=== PATIENT | female | born 1945 | race Two or more races ===

== ENCOUNTER → 2024-09-27 | Outpatient (CLI) | payer MEDICAID ==
[~2024-09-27] MED LIST: ALBUTEROL SULF 2.5 MG/0.5ML(0.5%) NEB SOLN ONE
== END | disposition home or self-care (01) ==
LOC: RT 08:46
PROVIDERS: ATTEND Internal Medicine Pulmonary Disease
DX: J84.9 Interstitial pulmonary disease, unspecified (principal); R06.00 Dyspnea, unspecified; Z79.899 Other long term (current) drug therapy
CPT/HCPCS: 94060; 94618; 94727; 94729

== ENCOUNTER → 2024-11-28 | Outpatient (CLI) | payer MEDICAID | END | disposition home or self-care (01) | LOC: Rad HDHVI 09:06 | PROVIDERS: ATTEND Internal Medicine Cardiovascular Disease | DX: I50.23 Acute on chronic systolic (congestive) heart failure (principal); I51.7 Cardiomegaly | CPT/HCPCS: 93306 ==

== ENCOUNTER → 2024-11-30 | Outpatient (CLI) | payer MEDICAID | END | disposition home or self-care (01) | LOC: Rad HDHVI 09:10 | PROVIDERS: ATTEND Internal Medicine Cardiovascular Disease | DX: I10 Essential (primary) hypertension (principal) | CPT/HCPCS: 93880 ==

== ENCOUNTER → 2025-01-26 | Outpatient (CLI) | payer MEDICAID ==
[2025-01-26 11:53] LABS: Basophils # (auto) 0 10 ^3/uL (0-0.2); Hemoglobin 13.1 g/dL (12.2-16.2); Lymphocytes # (auto) 1.2 10 ^3/uL (0.4-5.4); Monocytes # (auto) 0.3 10 ^3/uL (0-1.3); Neutrophils # (auto) 1.8 10 ^3/uL (1.6-8.6); Platelet Count (auto) 74 10^3/uL (140-450)
[2025-01-26 11:54] LABS: Eosinophils # (auto) 0.2 10 ^3/uL (0-0.8); Eosinophils % (auto) 4.6 % (0.0-7.0); Hematocrit 37.7 % (36.0-46.0); Lymphocytes % (auto) 33.8 % (10.0-50.0); Mean Corpuscular Hemoglobin 35.9 pg (28.0-32.0); Mean Corpuscular Hgb Conc. 34.7 g/dL (32.0-36.0); Mean Corpuscular Volume 103.4 fL (80.0-100.0); Monocytes % (auto) 8.9 % (0.0-12.0); Neutrophils % (auto) 51.7 % (37.0-80.0); Nucleated Red Blood Cells % 0.2 %; Red Blood Cells 3.65 10^6/uL (4.0-5.20); White Blood Cell 3.4 10^3/uL (4.4-10.8)
[2025-01-26 12:01] LABS: INR 1.16 (0.9-1.15); Partial Thromboplastin Time 34.5 SEC (24.5-34.5); Prothrombin Time 12.1 sec (9.3-11.8)
[2025-01-26 12:11] LABS: Alanine Aminotransferase 33 U/L (7-40); Albumin 3.4 g/dL (3.2-4.8); Anion Gap 6 (5-15); BUN/Creatinine Ratio 27.6 (10.0-20.0); Blood Urea Nitrogen 16 mg/dL (9-23); Calcium 9.4 mg/dL (8.7-10.4); Carbon Dioxide 28 mmol/L (20-31); Potassium 3.8 mmol/L (3.5-5.1); Sodium 141 mmol/L (136-145); Total Protein 6.5 g/dL (5.7-8.2)
[2025-01-26 12:12] LABS: Alkaline Phosphatase 208 U/L (46-116); Aspartate Aminotransferase 49 U/L (13-40); Bilirubin, Total 2.5 mg/dL (0.2-1.0); Chloride 107 mmol/L (98-107); Glucose 146 mg/dL (74-106)
[2025-01-26 12:33] LABS: Hepatitis B Surface Antigen Negative (Negative)
[2025-01-26 12:50] LABS: Hepatitis A Ab IgM Negative; Hepatitis B Core IgM Negative (Negative); Hepatitis C Antibody Negative (Negative)
[2025-01-27 08:07] LABS: AFP Serum Tumor Marker 4.5 ng/mL (0.0-9.2)
[2025-01-27 13:07] LABS: Anti-Nuclear Antibody Direct Negative (Negative)
== END | disposition home or self-care (01) ==
LOC: LAB 11:07
PROVIDERS: ATTEND Specialist
DX: K74.60 Unspecified cirrhosis of liver (principal); D69.9 Hemorrhagic condition, unspecified
CPT/HCPCS: 36415; 80053; 80074; 82105; 82728; 85025; 85610; 85730; 86038

== ENCOUNTER → 2025-04-05 | Outpatient (CLI) | payer MEDICAID ==
[~2025-04-05] MED LIST changes: +ALBUAER3 IN; -ALBUTEROL SULF 2.5 MG/0.5ML(0.5%) NEB SOLN ONE; +CLON0.1D13 TD; +FOLI-119 PO; +FURO1TAB31 PO; +LEVO100T8 PO; +LEVO750T40 PO; +LINA5TAB PO; +METH2.5T PO; +SUCR1TAB31 PO; +TIMO0.5S28 EACHEYE
--- NOTE | 2025-04-05 14:02 | DVHSR ---
APPROVED REPORT EXAM: Two-dimensional and M-mode echocardiogram with Doppler and color Doppler. DIMENSIONS LVDd4.0 (3.8-5.7cm)LA (2D)3.9 (1.9-4.0cm)Aortic Root3.2 (2.0-3.7cm) LVDs2.7 (2.5-4.0cm)LA (MM) (1.9-4.0cm)Aortic Cusp Exc1.4 (1.5-2.0cm) EF (%) 60.0 (55-70%)Rt. Atrium3.8 (1.9-4.0cm)Asc. Aorta cm IVSd1.2 (0.7-1.1cm)RV (D)3.3 (1.8-2.4cm) PWd1.2 (0.7-1.1cm) Mitral Valve MitralMitral Stenosis E wave0.98m/sMV Mean GR.mmHg A wave1.22m/sMV Peak GR.mmHg E/A ratio0.82D MVAcm2 DECEL [id number] 1/2 Timems Aortic Valve Aortic ValveAortic Stenosis V10.95m/Rikki Mean GR.5mmHg V21.48m/Rikki Peak GR.9mmHg LVOT Diameter1.9 (1.8-2.4cm)Doppler AVA1.82cm2 Pulmonic Valve V21.10m/s Tricuspid Valve TR Velocity3.19m/s [id number] LEFT VENTRICLE The left ventricle is normal size. There is mild concentric left ventricular hypertrophy. The left ventricle is normal in structure and function. The Ejection Fraction is within normal limits. RIGHT VENTRICLE The right ventricle is normal size. ATRIA The left atrial size is normal. The right atrium size is normal. The interatrial septum is intact with no evidence for an atrial septal defect. MITRAL VALVE The mitral valve is normal in structure. Mitral annular calcification is mild to moderate. Mitral regurgitation is mild to moderate. PULMONIC VALVE The pulmonic valve is not well visualized. There is trace pulmonic valvular regurgitation. TRICUSPID VALVE The tricuspid valve is grossly normal. There is moderate tricuspid regurgitation. Right ventricular systolic pressure is 40-50 mmHg. AORTIC VALVE The aortic valve opens well. The aortic valve is mildly sclerotic. No aortic regurgitation is present. GREAT VESSELS The aortic root is normal size. PERICARDIAL EFFUSION There is no pericardial effusion. Other Information Technically limited study due to body habitus. Conclusion MILD AV SCLEROSIS MOD TR MILD MR MILD MAC CONC LVH DIASTOLIC DYSFUNCTION MILD PAH EF >55%
== END | disposition home or self-care (01) ==
LOC: Rad HDHVI 10:05
PROVIDERS: ATTEND Internal Medicine Cardiovascular Disease
DX: I08.3 Combined rheumatic disorders of mitral, aortic and tricuspid valves (principal); I11.9 Hypertensive heart disease without heart failure
CPT/HCPCS: 93306

== ENCOUNTER 2025-04-08 07:53 | Day surgery (SDC) | payer MEDICAID ==
[2025-04-07 09:45] LABS: Basophils # (auto) 0 10 ^3/uL (0-0.2); Eosinophils # (auto) 0.1 10 ^3/uL (0-0.8); Eosinophils % (auto) 3.2 % (0.0-7.0); Hematocrit 34.1 % (36.0-46.0); Monocytes # (auto) 0.3 10 ^3/uL (0-1.3); Monocytes % (auto) 8.9 % (0.0-12.0); Neutrophils # (auto) 1.6 10 ^3/uL (1.6-8.6); Platelet Count (auto) 58 10^3/uL (140-450)
[2025-04-07 09:50] LABS: Basophils % (auto) 0.9 % (0.0-2.0); Lymphocytes % (auto) 33.1 % (10.0-50.0); Mean Corpuscular Hemoglobin 35.7 pg (28.0-32.0); Mean Corpuscular Hgb Conc. 35.2 g/dL (32.0-36.0); Mean Corpuscular Volume 101.5 fL (80.0-100.0); Neutrophils % (auto) 53.9 % (37.0-80.0); Nucleated Red Blood Cells % 0.2 %; Red Blood Cells 3.36 10^6/uL (4.0-5.20); Red Cell Distribution Width 14.3 % (11.8-14.3)
[2025-04-07 09:54] LABS: Alanine Aminotransferase 28 U/L (7-40); Anion Gap 3 (5-15); BUN/Creatinine Ratio 29.5 (10.0-20.0); Blood Urea Nitrogen 18 mg/dL (9-23); Calcium 9.7 mg/dL (8.7-10.4); Carbon Dioxide 29 mmol/L (20-31); Sodium 143 mmol/L (136-145); Total Protein 6.2 g/dL (5.7-8.2)
[2025-04-07 09:55] LABS: Albumin 3.1 g/dL (3.2-4.8); Alkaline Phosphatase 225 U/L (46-116); Aspartate Aminotransferase 44 U/L (13-40); Bilirubin, Total 1.9 mg/dL (0.2-1.0); Chloride 111 mmol/L (98-107); Glucose 152 mg/dL (74-106)
[2025-04-07 10:00] LABS: INR 1.16 (0.9-1.15); Partial Thromboplastin Time 33.7 SEC (24.5-34.5); Prothrombin Time 12.1 sec (9.3-11.8)
[~2025-04-08] VITALS: Ht 139.7 cm; Wt 60.8 kg
[~2025-04-08 07:53] MED LIST changes: -ALBUAER3 IN; +B-COCAP34 OR; -FURO1TAB31 PO; -LEVO750T40 PO
[2025-04-08] MEDS: fentaNYL CITRATE 100 MCG/2 ML VL ONE (09:26)
[2025-04-08] MEDS: MIDAZOLAM HCL 2MG/2ML 2ml VIAL (1mg/ml) ONE (09:26)
[2025-04-08 09:37] VITALS: PULSE 63; RESP 14; TEMP 98.1; O2SAT 100
--- NOTE | 2025-04-08 09:38 | DVHNC2 ---
Procedure - PROCEDURE DATE: 04/08/2025 PROCEDURE PERFORMED BY: CHRISTINA REBOLLEDO MD REFERRING PROVIDER: LEE SALOMON MD PROCEDURE PERFORMED: 1. ESOPHAGOGASTRODUODENOSCOPY WITH MODERATE SEDATION 2. ESOPHAGOGASTRODUODENOSCOPY WITH BIOPSY PRE-PROCEDURE DIAGNOSIS: 1. CIRRHOSIS POSTPROCEDURE DIAGNOSIS: 1. MILD EROSIVE ESOPHAGITIS AND TRACE ESOPHAGEAL VARICES 2. MILD EROSIVE GASTRITIS AND MODERATE PORTAL HYPERTENSIVE GASTROPATHY 3. SMALL HIATAL HERNIA INDICATION FOR PROCEDURE: THE PATIENT IS AN 79-YEAR-OLD FEMALE WITH A HISTORY OF NONALCOHOLIC CIRRHOSIS WHO PRESENTS FOR OUTPATIENT ENDOSCOPY FOR ESOPHAGEAL VARICES SCREENING MEDICATIONS USED: 2MG OF VERSED AND 25 MCG OF FENTANYL IV WAS GIVEN IN INC REMENTAL DOSES DETAILS OF THE PROCEDURE: INFORMED CONSENT WAS OBTAINED AFTER RISKS BENEFITS AND ALTERNATIVES WERE DISCUSSED AT LENGTH WITH THE PATIENT. THE PATIENT GAVE CONSENT TO THE PROCEDURE WELL THE MEDICATION USED FOR SEDATION. THE PATIENT WAS PLACED IN THE LEFT LATERAL DECUBITUS POSITION. AN OLYMPUS ENDOSCOPE WAS INSERTED INTO THE OROPHARYNX AND ADVANCED INTO THE ESOPHAGUS THEN INTO THE STOMACH THEN INTO THE DUODENAL BULB AND DUODENUM. THE DUODENAL BULB AND DUODENUM WERE NORMAL. THE SCOPE WAS THEN WITHDRAWN. THE STOMACH SHOWED MILD EROSIVE GASTRITIS IN THE BODY AND ANTRUM AND MODERATE PORTAL HYPERTENSIVE GASTROPATHY. BIOPSIES WERE TAKEN FOR H PYLORI AND PATHOLOGY. RETROFLEXION SHOWED A SMALL HIATAL HERNIA BUT NO GASTRIC VARICES. RETAINED SECRETIONS WERE WASHED AND SUCTIONED OFF. THE SCOPE WAS THEN WITHDRAWN. THE Z-LINE WAS AT 36 CM. THE PATIENT HAD MILD EROSIVE ESOPHAGITIS AND TRACE ESOPHAGEAL VARICES. THE PATIENT TOLERATED THE PROCEDURE WELL. IMPRESSION: 1. NONALCOHOLIC CIRRHOSIS 2. ENDOSCOPY SHOWING TRACE ESOPHAGEAL VARICES AND MODERATE PORTAL HYPERTENSIVE GASTROPATHY, NO GASTRIC VARICES 3. MILD EROSIVE GASTRITIS IN THE BODY AND ANTRUM AND MILD EROSIVE ESOPHAGITIS 4. SMALL HIATAL HERNIA RECOMMENDATIONS: 1. ANTI-REFLUX PRECAUTIONS, AVOID SPICY FOOD, CAFFEINE, CHOCOLATE, TOMATOES, CITRUS, AND ALCOHOL 2. FOLLOW UP IN GI CLINIC 3. LOW-SALT DIET, MINIMIZE FLUID INTAKE TO LESS THAN 2 L, HIGH-PROTEIN DIET 4. AVOID FRIED SEAFOOD 5. CONTINUE WITH CURRENT MEDICATIONS, AVOID HEPATOTOXIC MEDICATIONS 6. I DO NOT SEE THAT THE PATIENT IS ON A PROTON PUMP INHIBITOR I WILL START PANTOPRAZOLE 40 MG DAILY 7. CONSIDER STARTING INDERAL LOW-DOSE WHEN SHE FOLLOWS UP IN THE CLINIC. I WOULD LIKE TO THANK DR. SALOMON FOR THIS REFERRAL CHRISTINA REBOLLEDO MD April 08, 2025 09:37
[2025-04-08 10:15] VITALS: BP 123/54; PULSE 66; RESP 18; O2SAT 96
== END 2025-04-08 10:30 | disposition home or self-care (01) ==
LOC: GI 07:53
PROVIDERS: ATTEND Specialist
DX: K74.69 Other cirrhosis of liver (principal); K29.50 Unspecified chronic gastritis without bleeding; K22.10 Ulcer of esophagus without bleeding; K76.6 Portal hypertension; K21.00 Gastro-esophageal reflux disease with esophagitis, without bleeding; K44.9 Diaphragmatic hernia without obstruction or gangrene; K31.89 Other diseases of stomach and duodenum; I10 Essential (primary) hypertension; E11.9 Type 2 diabetes mellitus without complications; E03.9 Hypothyroidism, unspecified; Z90.710 Acquired absence of both cervix and uterus; Z90.49 Acquired absence of other specified parts of digestive tract; Z98.890 Other specified postprocedural states
CPT/HCPCS: 36415; 43239; 80053; 82962; 85025; 85610; 85730; 88305; 88312; 88342; J2250; J3010

== ENCOUNTER 2025-07-07 13:08 | Inpatient (IN) | payer MEDICAID ==
[~2025-07-07] VITALS: Ht 152.4 cm; Wt 60.7 kg
[~2025-07-07 13:08] MED LIST changes: +FURO40TA4 PO; +LACT10PA2 PO; +NAPR-957 PO; +PANT1INJ3 IV; +POTA-215 PO; +PREG150C PO; +SPIR50TA5 PO; +VERI2.5T PO
--- NOTE | 2025-07-07 13:34 | ED.PDOC ---
Altered Mental Status HPI Comments HPI: 79F who is tanzanian speaking presents to the ER in a wheelchair and w/ a family member who is translating and the c/c of ALOC. Family member reports that the pt has been altered for the past 2 days w/ being slow to answer, and would often be confused during a conversation. The pt was originally taken to [facility] earlier today and was sent to the ER for further workup Past Medical history: DM, HTN, CHF, Cirrhosis, hepatorenal symptom Past Surgical history: Denies any Medications: Social History: Denies smoking, ETOH, and drug use. Allergies: MADSEN: HPI: Poor Historian. Onset of symptoms two days ago. REVIEW OF SYSTEMS: CONSTITUTIONAL: Denies acute: fever, diaphoresis, chills, HEAD: Denies acute: headache, photophobia Eyes: Denies acute: Double vision, vision loss, eye pain, eye discharge. EARS: Denies acute: tinnitus, hearing loss, ear discharge, ear pain, THROAT: Denies acute: sore throat, swelling, difficulty swallowing , pain with swallowing, change in voice. NECK: Denies acute: neck pain, neck swelling, stiff neck. HEART: Denies acute : chest pain, palpitations, LUNGS: Denies acute: SOB, wheezing, cough, hemoptysis ABDOMEN: Denies acute: abdominal pain, Nausea, Vomiting, diarrhea, melena , hematemesis, hematochezia SKIN: Denies acute: rash, redness, lesions, itchiness. EXTREMITIES: Denies acute: calf pain, numbness, tingling, weakness, denies pain in extremity. Denies acute: Low back pain. Neuro: Denies acute: focal neurological deficit, motor or sensory focal neurological deficit, tremors, seizure like activity, , dizziness, loss of bowel or bladder function, cauda equina like symptoms. : Denies acute: dysuria, hematuria, flank pain, increase in urinary frequency. PSYCH: Denies acute: hallucination, suicidal ideation, homicidal ideation. FEMALE: Denies acute: abnormal vaginal bleeding, foul odor, unusual discharge. PHYSICAL EXAM: General: ------no--acute distress, awake and alert. Head: normocephalic, atraumatic. Neck: supple, trachea is midline, no swelling. Throat: Normal phonation. Eyes:, no erythema, no purulent discharge, no proptosis, no icterus. Heart: regular rate, regular rhythm, no significant murmur appreciated. Lungs: no apparent respiratory distress, Able to speak in full sentences. No wheezing, no rhonchi, no crackles. No stridors Clear to auscultation bilaterally. Abdomen: non tender to palpation, non distended, soft, no guarding, no rebound, + bowel sounds. Neuro: Awake, Alert, oriented to name, self, situation, follows commands GCS=15. Speech is normal. Skin: no petechia, no purpura, no cyanosis, non-pale, not jaundice. Lower extremities: --trace bilateral- Pitting edema no deformity, no focal swelling, no calf TTP. Makes eye contact. moves all four extremities. Face: no apparent facial droop. No nystagmus. No nuchal rigidity, Kernig's sign, Brudzinski's sign, no meningeal signs. ED COURSE: DISCLAIMER: This medical document was created using an electronic medical record system with voice recognition software and computerized dictation system. Although this document has been carefully reviewed, there might still be some phonetic and typographical errors. Occasional wrong-word or "sound-alike" substitutions may have occurred due to the inherent limitations of voice recognition software. These areas are purely typographical due to imperfections of the software pro grams and do not reflect any compromise in the patient's medical care. Please read the chart carefully and recognize, using context, where these substitutions have occurred. Chief Complaint: ALOC Time Seen by MD: 13:30 Primary Care Provider: RUBINA Reviewed Notes: Nurses Notes, Medications, Allergies Allergies: Coded Allergies: Penicillins (Verified Allergy, Unknown, 12/14/24) Home Meds Active Scripts Lactulose (Lactulose) 10 Gm Brian, 10 GM PO TID for 90 Days, #90 PACK Prov:ANSON CHENG MD 05/24/25 Reported Medications Potassium Chloride (Klor-Con M10) 10 Meq Tab, 1 TAB PO DAILY, #30 TAB 5 Refills 05/23/25 Linagliptin Base (TRADJENTA) 5 Mg Tab, 5 MG PO DAILY, TAB 05/23/25 Vericiguat (Verquvo) 2.5 Mg Tab, 2.5 MG PO DAILY, TAB 05/23/25 Furosemide (Furosemide) 40 Mg Tab, 40 MG PO DAILY for 30 Days 05/23/25 Pregabalin (Lyrica) 150 Mg Cap, 150 MG PO HS, CAP 05/23/25 Naproxen (Naproxen) 375 Mg Tab, 375 MG PO DAILYPRN, TAB 05/23/25 Spironolactone (Spironolactone) 50 Mg Tab, 50 MG PO DAILY, TAB 05/23/25 Pantoprazole Sodium (PANTOPRAZOLE SODIUM) 40 Mg Inj, 40 MG IV DAILY, INJ 05/23/25 B-Complex Vitamins (B Complex) Cap, 1 OR DAILY, CAP 04/07/25 Timolol Maleate (Timolol Maleate Ophthalmi) 0.5 % Sandra, 1 DROP EACHEYE BID, #5 ML 5 Refills 02/05/25 Folic Acid (Folic Acid) 1 Mg Tab, 1 MG PO DAILY, TAB 02/05/25 Methotrexate (Methotrexate) 2.5 Mg Tab, 6 TAB PO QWEEKLY, #24 TAB 1 Refill 02/05/25 Sucralfate (CARAFATE) 1 Gm Tab, 1 GM PO BID, TAB 02/05/25 Clonidine Hcl (POOSDNIW-HQM-9 PATCH) 0.1 Mg/24 Hr Ph, 0.1 MG TD QWEEKLY, PATCH 02/05/25 Levothyroxine Sodium (Levothyroxine Sodium) 100 Mcg Tab, 100 MCG PO QAM for 30 Days, MCG 02/03/25 Linagliptin Base (TRADJENTA) 5 Mg Tab, 5 MG PO DAILY@BREAKFAST, TAB 02/03/25 Information Source: Patient Mode of Arrival: Wheelchair Severity: Moderate Past Medical History PAST MEDICAL HISTORY: CHF, DM, HTN Past Medical History (Other): Cirrhosis Surgical History: Denies all surgeries 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 Was a procedure done?: No Differential Diagnosis (ALOC) Differential Diagnosis: Other (DDX include CVA, TGA, cerebellar ischemia/infarct, carotid stenosis, Intracranial mass/infection/bleed, e ncephalopathy, electrolyte abnormality, thyroid disease, hydrocephalus, hypoglycemia, drug toxicity, cardiac arrhythmia, seizure, infection in the elderly, Hyperammonemia., kidney failure., sepsis.) X-Ray, Labs, Meds, VS Vital Signs Date Time Temp Pulse Resp B/P (MAP) Pulse Ox O2 Delivery O2 Flow Rate FiO2 07/07/25 16:38 98.8 67 16 125/43 (70) 97 98.8 07/07/25 13:21 98.6 61 17 125/76 97 98.6 07/07/25 13:17 63 Lab Test 07/07/25 18:30 07/07/25 14:42 07/07/25 13:57 07/07/25 13:21 Range/Units Urine Color Yellow Yellow Urine Clarity Clear Clear Urine pH 6.5 5.0-9.0 Urine Specific [place] 1.018 1.001-1.035 Urine Protein Negative Negative Urine Ketones Negative Negative Urine Blood Negative Negative /uL Urine Nitrite Negative Negative Urine Bilirubin Negative Negative Urine Urobilinogen Normal Negative mg/dL Urine Leukocyte Esterase Negative Negative /uL Urine RBC <1 0 - 4 /hpf Urine Microscopic WBC 1 0-5 /HPF Urine Squamous Epithelial Cells Few <5 /hpf Urine Bacteria None seen None Seen /hpf Urine Glucose Normal Normal mg/dL Troponin I High Sensitivity < 3 L < 3 L </=34 ng/L White Blood Count 4.3 L 4.4-10.8 10^3/uL Red Blood Count 3.39 L 4.0-5.20 10^6/uL Hemoglobin 12.5 12.2-16.2 g/dL Hematocrit 34.8 L 36.0-46.0 % Mean Corpuscular Volume 102.7 H 80.0-100.0 fL Mean Corpuscular Hemoglobin 36.8 H 28.0-32.0 pg Mean Corpuscular Hemoglobin Concent 35.8 32.0-36.0 g/dL Red Cell Distribution Width 14.5 H 11.8-14.3 % Platelet Count 72 L 140-450 10^3/uL Mean Platelet Volume 9.2 6.9-10.8 fL Neutrophils (%) (Auto) 63.3 37.0-80.0 % Lymphocytes (%) (Auto) 25.8 10.0-50.0 % Monocytes (%) (Auto) 7.3 0.0-12.0 % Eosinophils (%) (Auto) 3.1 0.0-7.0 % Basophils (%) (Auto) 0.5 0.0-2.0 % Neutrophils # (Auto) 2.7 1.6-8.6 10 ^3/uL Lymphocytes # (Auto) 1.1 0.4-5.4 10 ^3/uL Monocytes # (Auto) 0.3 0-1.3 10 ^3/uL Eosinophils # (Auto) 0.1 0-0.8 10 ^3/uL Basophils # (Auto) 0 0-0.2 10 ^3/uL Nucleated Red Blood Cells 0.1 % Sodium Level 139 136-145 mmol/L Potassium Level 4.4 3.5-5.1 mmol/L Chloride Level 105 98-107 mmol/L Carbon Dioxide Level 28 20-31 mmol/L Anion Gap 6 5-15 Blood Urea Nitrogen 32 H 9-23 mg/dL Creatinine 0.85 0.550-1.02 mg/dL Glomerular Filtration Rate Calc 69 >90 mL/min BUN/Creatinine Ratio 37.6 H 10.0-20.0 Serum Glucose 158 H 74-106 mg/dL Lactic Acid Level 1.8 0.4-2.0 mmol/L Calcium Level 9.6 8.7-10.4 mg/dL Magnesium Level 2.0 1.6-2.6 mg/dL Total Bilirubin 2.0 H 0.2-1.0 mg/dL Aspartate Amino Transferase (AST) 49 H 13-40 U/L Alanine Aminotransferase (ALT) 33 7-40 U/L Alkaline Phosphatase 199 H 46-116 U/L Ammonia 77 H 11-32 umol/L B-Type Natriuretic Peptide 99.34 0-100 pg/mL Total Protein 6.8 5.7-8.2 g/dL Albumin 3.4 3.2-4.8 g/dL POC Glucose 178 H 70-106 mg/dl [facility] [id number] [place] [id number] Ph: [phone] DIAGNOSTIC IMAGING Diagnostic Imaging Report : [id number] Signed PATIENT: DANIELA MADSEN ACCT: [id number] UNIT: [id number] : 1945 LOC: ER ROOM / BED: / AGE / SEX: 79 / F ADM STATUS: REG ER SERVICE [id number] ORDERING PHYSICIAN: MARIAA DIXON DO PROCEDURE(s): HWOCT - HEAD WITHOUT CONTRAST REASON: ALOC ORDER NUMBER(s): [id number], ACCESSION NUMBER(s): [id number] COMPUTERIZED TOMOGRAPHY OF THE HEAD WITHOUT CONTRAST REASON FOR STUDY: ALOC COMPARISON: CT HEAD WITHOUT CONTRAST on DOS: 05/23/25, US CAROTID DUPLX W COLOR DOP on DOS: 11/30/24 TECHNIQUE: Helical tomographic scans were obtained through the brain. 2-D coronal and sagittal reformatted images are provided. Radiation optimization: All CT scans at this facility use at least one of these dose optimization techniques: Automated exposure control mA and/or kV adjustment per patient size (includes targeted exams where dose is matched to clinical indication) or iterative reconstruction. RADIATION DOSE: CTDI: 54 mGy DLP: 1060 mGy-cm FINDINGS: No suspicious intracranial hyperdensity to suggest acute blood. There is a 4 mm calcification in the right precentral gyrus, likely secondary to remote infection or trauma. 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 There is no mass effect nor midline shift. There is moderate generalized volume loss with compensatory enlargement of the CSF spaces. There is no hydrocephalus. The suprasellar cistern is intact. There are scattered periventricular and deep white matter hypodensities that are most consistent with chronic microangiopathic changes. The calvarium is intact. The visualized mastoid air cells and paranasal sinuses are clear. The patient is status post bilateral lens surgeries. IMPRESSION: No acute intracranial abnormality. Moderate generalized volume loss with chronic small vessel ischemic change. ATED BY: MUNDO NAJERA MD DICTATED DATE/TIME: 07/07/251406 SIGNED BY: MUNDO NAJERA MD SIGNED DATE/TIME: 07/07/251406 CC: [address] [address] Ph: [phone] DIAGNOSTIC IMAGING Diagnostic Imaging Report : [id number] Signed PATIENT: DANIELA MADSEN ACCT: [id number] UNIT: [id number] : 1945 LOC: ER ROOM / BED: / AGE / SEX: 79 / F ADM STATUS: REG ER SERVICE 1328 ORDERING PHYSICIAN: MARIAA DIXON DO PROCEDURE(s): CXRP - CHEST PORTABLE REASON: ALOC ORDER NUMBER(s): [id number], ACCESSION NUMBER(s): [id number] CHEST RADIOGRAPH Indication: ALOC Technique: XY CHEST PORTABLE COMPARISON: None FINDINGS: The cardiac silhouette is enlarged. Bilateral interstitial airspace opacities The lungs demonstrate bilateral patchy airspace opacities. The pulmonary vasculature is prominent. Small bilateral pleural effusion. There is no pneumothorax. IMPRESSION: Cardiomegaly with pulmonary vascular congestion and bilateral patchy airspace opacities. Interstitial airspace opacities which could represent sequela of pulmonary edema, atypical infection, chronic lung changes/disease. Small bilateral pleural effusions ATED BY: KAYLA URIAS MD DICTATED DATE/TIME: 07/07/25 1400 SIGNED BY: KAYLA URIAS MD SIGNED DATE/TIME: 07/07/251399 Time of 1ST Reevaluation: 14:00 Reevaluation 1ST: Unchanged Patient Education/Counseling: Diagnosis, Treatment, Prognosis Family Education/Counseling: Diagnosis, Treatment, Prognosis Comments MDM: patient presented with the above HPI.--ALOC----workup was initiated. patient was found with the above mentioned diagnosis. the following medications were ordered: please refer to order lists of meds and tests obtained by myself Dr. Dixon. Patient ED course and VS have been stabilized. Patient has been reassessed in the ED and remained in a stable condition. Pertinent incidental findings were discussed with the patient and/or family. Patient/family voices understanding and is agreeable with plan. Patient has been observed in the ED adequate length of time to insure improvement/stability. Escalation of care considered: Consideration of escalation to observation or admission Patient was found with a hyperammonemia, lactulose was given. Suspected pneumonia, patient was given Rocephin. CT scan of the head and chest x-ray were obtained. Patient was ADMITTED to the medicine team for further evaluation and treatment of their presentation. All the reports of any imaging studies that were ordered by myself were reviewed by myself. SEPSIS Sepsis Screen Physician Orders Electrocardigram (07/07/25 13:26) Electronic Engineering Draftsperson (07/07/25 ) Chest Portable (07/07/25 13:28) Head Without Contrast (07/07/25 13:28) Vital Signs Date Time Temp Pulse Resp B/P (MAP) Pulse Ox O2 Delivery O2 Flow Rate FiO2 07/07/25 16:38 98.8 67 16 125/43 (70) 97 98.8 07/07/25 13:21 98.6 61 17 125/76 97 98.6 07/07/25 13:17 63 Laboratory Tests Test 07/07/25 13:57 Lactic Acid Level 1.8 mmol/L (0.4-2.0) White Blood Count 4.3 10^3/uL (4.4-10.8) L Departure 1 Departure Time of Disposition: 14:27 Impression: Primary Impression: AMS (altered mental status) Additional Impressions: Pneumonia Hyperammonemia Metabolic encephalopathy Acute hepatic encephalopathy Disposition: ADMITTED INPATIENT Admit to: [facility] Condition: Guarded Discharged With: Self Critical Care Note Critical Care Time?: Yes (1 hr-critical care time only) Heart Score Heart Score: Heart Score Response (Comments) Value History N/A 0 EKG N/A 0 Age N/A 0 Risk Factors N/A 0 Troponin N/A 0 Total 0 I personally scribed for MARIAA DIXON DO ([email or web address]) on 07/07/25 at 13:33. Electronically submitted by Reggie Gomez ([email or web address]). I personally scribed for MARIAA DIXON DO ([email or web address]) on 07/07/25 at 14:24. Electronically submitted by Reggie Gomez ([email or web address]). MARIAA DIXON DO Jul 07, 2025 13:33
--- NOTE | 2025-07-07 14:00 | DVH ---
CHEST RADIOGRAPH Indication: ALOC Technique: XY CHEST PORTABLE COMPARISON: None FINDINGS: The cardiac silhouette is enlarged. Bilateral interstitial airspace opacities The lungs demonstrate b ilateral patchy airspace opacities. The pulmonary vasculature is prominent. Small bilateral pleural e ffusion. There is no pneumothorax. IMPRESSION: Cardiomegaly with pulmonary vascular congestion and bilateral patchy airspace opacities. Interstitial airspace opacities which could represent sequela of pulmonary edema, atypical infection, chronic lung changes/disease. Small bilateral pleural effusions
--- NOTE | 2025-07-07 14:09 | DVH ---
COMPUTERIZED TOMOGRAPHY OF THE HEAD WITHOUT CONTRAST REASON FOR STUDY: ALOC COMPARISON: CT HEAD WITHOUT CONTRAST on DOS: 05/23/25, US CAROTID DUPLX W COLOR DOP on DOS: 11/30/24 TECHNIQUE: Helical tomographic scans were obtained through the brain. 2-D coronal and sagittal refor matted images are provided. Radiation optimization: All CT scans at this facility use at least one of these dose optimization techniques: Automated exposure control mA and/or kV adjustment per patient s ize (includes targeted exams where dose is matched to clinical indication) or iterative reconstructio n. RADIATION DOSE: CTDI: 54 mGy DLP: 1060 mGy-cm FINDINGS: No suspicious intracranial hyperdensity to suggest acute blood. There is a 4 mm calcificat ion in the right precentral gyrus, likely secondary to remote infection or trauma. There is an old la cunar infarcts in the left caudate head. There is no mass effect nor midline shift. There is moderate generalized volume loss with compensatory enlargement of the CSF spaces. There is no hydrocephalus. The suprasellar cistern is intact. There are scattered periventricular and deep white matter hypodens ities that are most consistent with chronic microangiopathic changes. The calvarium is intact. The vi sualized mastoid air cells and paranasal sinuses are clear. The patient is status post bilateral lens surgeries. IMPRESSION: No acute intracranial abnormality. Moderate generalized volume loss with chronic small vessel ischemic change.
[2025-07-07 14:31] LABS: Alanine Aminotransferase 33 U/L (7-40); Albumin 3.4 g/dL (3.2-4.8); Anion Gap 6 (5-15); BUN/Creatinine Ratio 37.6 (10.0-20.0); Calcium 9.6 mg/dL (8.7-10.4); Carbon Dioxide 28 mmol/L (20-31); Chloride 105 mmol/L (98-107); Magnesium 2.0 mg/dL (1.6-2.6); Potassium 4.4 mmol/L (3.5-5.1); Sodium 139 mmol/L (136-145); Total Protein 6.8 g/dL (5.7-8.2)
[2025-07-07 14:33] LABS: Alkaline Phosphatase 199 U/L (46-116); Bilirubin, Total 2.0 mg/dL (0.2-1.0); Blood Urea Nitrogen 32 mg/dL (9-23); Glucose 158 mg/dL (74-106)
[2025-07-07 14:34] LABS: Hemoglobin 12.5 g/dL (12.2-16.2); Nucleated Red Blood Cells % 0.1 %
[2025-07-07 14:37] LABS: Hematocrit 34.8 % (36.0-46.0); Mean Corpuscular Hemoglobin 36.8 pg (28.0-32.0); Mean Corpuscular Volume 102.7 fL (80.0-100.0)
--- NOTE | 2025-07-07 16:51 | DVHHP2 ---
Admitting Diagnosis: Altered mental status History of Present Illness 79F who is setswana speaking presents to the ER in a wheelchair and w/ a family member who is translating and the c/c of [email or web address]. Family member reports that the pt has been altered for the past 2 days w/ being slow to answer, and would often be confused during a conversation. The pt was originally taken to [facility] earlier today and was sent to the ER for further workup Past Medical history: DM, HTN, CHF, Cirrhosis, hepatorenal symptom Past Surgical history: Denies any Medications: Social History: Denies smoking, ETOH, and drug use. Allergies: MADSEN: HPI: Poor Historian. Onset of symptoms two days ago. REVIEW OF SYSTEMS: CONSTITUTIONAL: Denies acute: fever, diaphoresis, chills, HEAD: Denies acute: headache, photophobia Eyes: Denies acute: Double vision, vision loss, eye pain, eye discharge. EARS: Denies acute: tinnitus, hearing loss, ear discharge, ear pain, THROAT: Denies acute: sore throat, swelling, difficulty swallowing , pain with swallowing, change in voice. NECK: Denies acute: neck pain, neck swelling, stiff neck. HEART: Denies acute : chest pain, palpitations, LUNGS: Denies acute: SOB, wheezing, cough, hemoptysis ABDOMEN: Denies acute: abdominal pain, Nausea, Vomiting, diarrhea, melena , hematemesis, hematochezia SKIN: Denies acute: rash, redness, lesions, itchiness. EXTREMITIES: Denies acute: calf pain, numbness, tingling, weakness, denies pain in extremity. Denies acute: Low back pain. Neuro: Denies acute: focal neurological deficit, motor or sensory focal neurological deficit, tremors, seizure like activity, , dizziness, loss of bowel or bladder function, cauda equina like symptoms. : Denies acute: dysuria, hematuria, flank pain, increase in urinary frequency. PSYCH: Denies acute: hallucination, suicidal ideation, homicidal ideation. FEMALE: Denies acute: abnormal vaginal bleeding, foul odor, unusual discharge. 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 Family History: Reviewed,noncontributory to illness, Unknown Social History Smoker: Non-Smoker Alcohol: Denies ETOH Use Drugs: Denies Drug Use Lives In: Home Patient Family History: Diabetes mellitus G8 FATHER FH: stomach cancer G8 MOTHER Allergies: Coded Allergies: Penicillins (Verified Allergy, Unknown, 12/14/24) Home Meds Active Scripts Lactulose (Lactulose) 10 Gm Brian, 10 GM PO TID for 90 Days, #90 PACK Prov:ANSON CHENG MD 05/24/25 Reported Medications Potassium Chloride (Klor-Con M10) 10 Meq Tab, 1 TAB PO DAILY, #30 TAB 5 Refills 05/23/25 Linagliptin Base (TRADJENTA) 5 Mg Tab, 5 MG PO DAILY, TAB 05/23/25 Vericiguat (Verquvo) 2.5 Mg Tab, 2.5 MG PO DAILY, TAB 05/23/25 Furosemide (Furosemide) 40 Mg Tab, 40 MG PO DAILY for 30 Days 05/23/25 Pregabalin (Lyrica) 150 Mg Cap, 150 MG PO HS, CAP 05/23/25 Naproxen (Naproxen) 375 Mg Tab, 375 MG PO DAILYPRN, TAB 05/23/25 Spironolactone (Spironolactone) 50 Mg Tab, 50 MG PO DAILY, TAB 05/23/25 Pantoprazole Sodium (PANTOPRAZOLE SODIUM) 40 Mg Inj, 40 MG IV DAILY, INJ 05/23/25 B-Complex Vitamins (B Complex) Cap, 1 OR DAILY, CAP 04/07/25 Timolol Maleate (Timolol Maleate Ophthalmi) 0.5 % Sandra, 1 DROP EACHEYE BID, #5 ML 5 Refills 02/05/25 Folic Acid (Folic Acid) 1 Mg Tab, 1 MG PO DAILY, TAB 02/05/25 Methotrexate (Methotrexate) 2.5 Mg Tab, 6 TAB PO QWEEKLY, #24 TAB 1 Refill 02/05/25 Sucralfate (CARAFATE) 1 Gm Tab, 1 GM PO BID, TAB 02/05/25 Clonidine Hcl (DINBGOWA-RWD-6 PATCH) 0.1 Mg/24 Hr Ph, 0.1 MG TD QWEEKLY, PATCH 02/05/25 Levothyroxine Sodium (Levothyroxine Sodium) 100 Mcg Tab, 100 MCG PO QAM for 30 Days, MCG 02/03/25 Linagliptin Base (TRADJENTA) 5 Mg Tab, 5 MG PO DAILY@BREAKFAST, TAB 02/03/25 Current Medications Current Medications Medications (Trade) Dose Ordered Sig/Zully Route PRN Reason Start Time Stop Time Status Last Admin Levothyroxine Sodium (Synthroid Tablet) 100 mcg QAM PO 07/08/25 07:00 UNV Pantoprazole Sodium (Protonix) 40 mg DAILY IV 07/08/25 10:00 UNV Sucralfate (Carafate Tab) 1 gm BID PO 07/07/25 22:00 UNV Vital Signs Vital Signs Date Time Temp Pulse Resp B/P (MAP) Pulse Ox O2 Delivery O2 Flow Rate FiO2 07/07/25 16:38 98.8 67 16 125/43 (70) 97 98.8 Physical Exam Generally-79 years old, sitting on wheelchair. No apparent distress HEENT-atraumatic normocephalic Heart-regular rate and rhythm Lungs decreased breath sounds Abdomen soft nontender nondistended Musculoskeletal-plus one pitting edema Neuro-awake alert oriented follow commands, strength and sensory intact SEPSIS Sepsis Screen Date sepsis recognized/suspect: Jul 07, 2025 Time Sepsis recognized/suspect: 1321 Recent Procedure: No On Antibiotic Therapy: No Respiratory Rate >20: No Heart Rate >90: No Temp<36 C (96.8 F) or >38.3 C: No SBP <90 or MAP <65 mmHG: No New Acute Mental Status Change: No Is the patient on CPAP, BIPAP,: No Physician Orders Electrocardigram (07/07/25 13:26) Protection Analyst (07/07/25 ) Urinalysis (07/07/25 13:28) Chest Portable (07/07/25 13:28) Head Without Contrast (07/07/25 13:28) Procalcitonin (07/07/25 18:45) C-Reactive Protein (07/07/25 18:45) Regular Diet (07/08/25 Breakfast) Respiratory Culture W/ Gs (07/07/25 18:45) Blood Culture (07/07/25 18:45) Echo 2d Mode Cardiac Dop (07/07/25 18:45) * Cardiology Consult (07/07/25 18:45) Levothyroxine Tablet (Synthroid Tablet) (07/08/25 07:00) Pantoprazole (Protonix) (07/08/25 10:00) Sucralfate Tab (Carafate Tab) (07/07/25 22:00) (Nf) B-Complex Vitamins (B Complex) (07/08/25 10:00) (Nf) Folic Acid (07/08/25 10:00) (Nf) Lactulose (07/07/25 22:00) (Nf) Linagliptin Base (Tradjenta) (07/08/25 10:00) (Nf) Pregabalin (Lyrica) (07/07/25 22:00) (Nf) Spironolactone (07/08/25 10:00) (Nf) Vericiguat (Verquvo) (07/08/25 10:00) Admit (07/07/25 18:45) Code Status (07/07/25 18:45) Vital Signs .PER UNIT PROTOCOL (07/07/25 18:45) Review Orders With Adm.Md (07/07/25 18:45) Encourage Activity As Tolerate (07/07/25 18:45) Sodium Chloride Lock (Saline Lock Ns) (07/07/25 22:00) Docusate Sodium Capsule (Colace Capsule) (07/07/25 18:45) Acetaminophen Tablet (Tylenol Tablet) (07/07/25 18:45) Notify Md Of Changes From Base (07/07/25 18:45) Advance Directive (07/07/25 18:45) Patient Condition (07/07/25 18:45) Allergies (07/07/25 18:45) Hydrocodone-Acet 5/325mg Tab ([place] 5/32 (07/07/25 18:45) Ondansetron Hcl (Zofran) (07/07/25 18:45) Lovenox 40mg (07/08/25 10:00) Complete Blood Count (07/08/25 05:00) Complete Blood Count (07/09/25 05:00) Complete Blood Count (07/10/25 05:00) Complete Blood Count (07/11/25 05:00) Complete Blood Count (07/12/25 05:00) Comprehensive Metabolic Panel (07/08/25 05:00) Comprehensive Metabolic Panel (07/09/25 05:00) Comprehensive Metabolic Panel (07/10/25 05:00) Comprehensive Metabolic Panel (07/11/25 05:00) Comprehensive Metabolic Panel (07/12/25 05:00) Azithromycin 500mg/ 250ml (Zithromax 50 (07/08/25 10:00) Ceftriaxone Ivpb Rocephin (07/08/25 09:00) Furosemide Injection (Lasix Injection) (07/08/25 06:00) Vital Signs Date Time Temp Pulse Resp B/P (MAP) Pulse Ox O2 Delivery O2 Flow Rate FiO2 07/07/25 16:38 98.8 67 16 125/43 (70) 97 98.8 07/07/25 13:21 98.6 61 17 125/76 97 98.6 07/07/25 13:17 63 Laboratory Tests Test 07/07/25 13:57 Lactic Acid Level 1.8 mmol/L (0.4-2.0) White Blood Count 4.3 10^3/uL (4.4-10.8) L Results Labs Test 07/07/25 18:30 07/07/25 14:42 07/07/25 13:57 07/07/25 13:21 Range/Units Troponin I High Sensitivity < 3 L </=34 ng/L White Blood Count 4.3 L 4.4-10.8 10^3/uL Red Blood Count 3.39 L 4.0-5.20 10^6/uL Hemoglobin 12.5 12.2-16.2 g/dL Hematocrit 34.8 L 36.0-46.0 % Mean Corpuscular Volume 102.7 H 80.0-100.0 fL Mean Corpuscular Hemoglobin 36.8 H 28.0-32.0 pg Mean Corpuscular Hemoglobin Concent 35.8 32.0-36.0 g/dL Red Cell Distribution Width 14.5 H 11.8-14.3 % Platelet Count 72 L 140-450 10^3/uL Mean Platelet Volume 9.2 6.9-10.8 fL Neutrophils (%) (Auto) 63.3 37.0-80.0 % Lymphocytes (%) (Auto) 25.8 10.0-50.0 % Monocytes (%) (Auto) 7.3 0.0-12.0 % Eosinophils (%) (Auto) 3.1 0.0-7.0 % Basophils (%) (Auto) 0.5 0.0-2.0 % Neutrophils # (Auto) 2.7 1.6-8.6 10 ^3/uL Lymphocytes # (Auto) 1.1 0.4-5.4 10 ^3/uL Monocytes # (Auto) 0.3 0-1.3 10 ^3/uL Eosinophils # (Auto) 0.1 0-0.8 10 ^3/uL Basophils # (Auto) 0 0-0.2 10 ^3/uL Nucleated Red Blood Cells 0.1 % Sodium Level 139 136-145 mmol/L Potassium Level 4.4 3.5-5.1 mmol/L Chloride Level 105 98-107 mmol/L Carbon Dioxide Level 28 20-31 mmol/L Anion Gap 6 5-15 Blood Urea Nitrogen 32 H 9-23 mg/dL Creatinine 0.85 0.550-1.02 mg/dL Glomerular Filtration Rate Calc 69 >90 mL/min BUN/Creatinine Ratio 37.6 H 10.0-20.0 Serum Glucose 158 H 74-106 mg/dL Lactic Acid Level 1.8 0.4-2.0 mmol/L Calcium Level 9.6 8.7-10.4 mg/dL Magnesium Level 2.0 1.6-2.6 mg/dL Total Bilirubin 2.0 H 0.2-1.0 mg/dL Aspartate Amino Transferase (AST) 49 H 13-40 U/L Alanine Aminotransferase (ALT) 33 7-40 U/L Alkaline Phosphatase 199 H 46-116 U/L Ammonia 77 H 11-32 umol/L B-Type Natriuretic Peptide 99.34 0-100 pg/mL Total Protein 6.8 5.7-8.2 g/dL Albumin 3.4 3.2-4.8 g/dL POC Glucose 178 H 70-106 mg/dl Primary Diagnosis Altered mental status Acute pneumonia versus CHF exacerbation Plan Start ceftriaxone azithromycin for possible pneumonia Check pro count and CRP Check sputum culture and UA and urine culture Check echo of the heart to assess for heart failure Resume home meds IV Lasix 40 mg b.i.d. neuro check per floor protocol Cardiology consult resume home meds Full code DVT prophylaxis no GI prophylaxis needed Cardiac diet Plan discussed with: Patient Problems List: (1) AMS (altered mental status) Status: Acute (2) Pneumonia Status: Acute Date of Service: Jul 07, 2025 Billing Provider: SHANNA SUE MD Common Visit Codes: [id number] INP/OBS CARE (HIGH) SHANNA SUE MD Jul 07, 2025 16:51
[2025-07-07] MEDS ORDERED: DOCUSATE SOD 100 MG CAP PO PRN (18:45)
[2025-07-07] MEDS ORDERED: ACETAMINOPHEN 325 MG TAB PO PRN (18:45)
[2025-07-07] MEDS ORDERED: HYDROcodone-ACET 5/325MG TAB PO PRN (18:45)
[2025-07-07] MEDS ORDERED: ONDANSETRON HCL 4 MG/2 ML VIAL IV PRN (18:45)
[2025-07-07] MEDS: LACTULOSE 20Gm/30ML SOLN PO ONE (19:05)
[2025-07-07 19:49] LABS: Urine Protein, UAD Negative (Negative)
[2025-07-07 20:48] VITALS: PULSE 63; RESP 16; O2SAT 98
[2025-07-07 21:48] VITALS: PULSE 61; RESP 16; O2SAT 97
[2025-07-07 21:59] VITALS: RESP 18; TEMP 98.2
[2025-07-07] MEDS: SUCRALFATE 1 GM TAB PO SCH (22:46)
[2025-07-07] MEDS: PREGABALIN CAPSULE 75 MG CAP PO SCH (22:46)
[2025-07-07] MEDS: LACTULOSE 20Gm/30ML SOLN PO SCH (22:47)
[2025-07-07] MEDS: SODIUM CHLOR 0.9% PF (SALINE LOCK) 10ML VIAL/SYR IV SCH (22:53)
[2025-07-07] MEDS: AZITHROMYCIN 500MG/ 250ML 250 ML IV SCH (22:54)
[2025-07-08] VITALS (8 sets, daily range): BP systolic 95–134; BP diastolic 44–59; PULSE 54–68; RESP 16–18; TEMP 97.4–98.2; O2SAT 96–99
[2025-07-08] MEDS: FUROSEMIDE 40 MG/4 ML VIAL IV SCH (06:00)
[2025-07-08] MEDS: LEVOTHYROXINE SODIUM 100 MCG TAB PO SCH (06:53)
[2025-07-08 08:04] LABS: Alanine Aminotransferase 25 U/L (7-40); Anion Gap 9 (5-15); BUN/Creatinine Ratio 29.6 (10.0-20.0); Blood Urea Nitrogen 21 mg/dL (9-23); Calcium 9.7 mg/dL (8.7-10.4); Carbon Dioxide 25 mmol/L (20-31); Potassium 3.8 mmol/L (3.5-5.1); Sodium 143 mmol/L (136-145); Total Protein 6.6 g/dL (5.7-8.2)
[2025-07-08 08:07] LABS: Albumin 3.2 g/dL (3.2-4.8); Alkaline Phosphatase 154 U/L (46-116); Bilirubin, Total 1.9 mg/dL (0.2-1.0); Chloride 109 mmol/L (98-107); Glucose 135 mg/dL (74-106)
[2025-07-08 08:29] LABS: Hemoglobin 11.5 g/dL (12.2-16.2); Nucleated Red Blood Cells % 0.2 %
[2025-07-08 08:30] LABS: Hematocrit 32.4 % (36.0-46.0); Mean Corpuscular Hemoglobin 36.7 pg (28.0-32.0); Mean Corpuscular Volume 103.0 fL (80.0-100.0)
[2025-07-08] MEDS: SPIRONOLACTONE 25 MG TAB PO SCH (09:56)
[2025-07-08] MEDS: FOLIC ACID 1 MG TAB PO SCH (09:56)
[2025-07-08] MEDS: PANTOPRAZOLE 40 MG/10 ML VIAL INJ IV SCH (09:56)
[2025-07-08] MEDS: B COMPLEX VITAMINS PO SCH (09:57)
[2025-07-08] MEDS: ENOXAPARIN SOD 40 MG/0.4 ML SYRINGE SC SCH (10:00)
[2025-07-08 11:00] LABS: Hepatitis B Surface Antigen Negative (Negative); Hepatitis C Antibody Negative (Negative)
--- NOTE | 2025-07-08 15:10 | DVHINCON2 ---
Date Seen: Jul 08, 2025 Referring Physician Ulisses Reason for Consultation CHF History of Present Illness 79-year-old female with PMH for HTN, rheumatoid arthritis, diastolic HF, diabetes, nonalcoholic liver cirrhosis presents to the hospital with altered mental status, worsening lower extremity edema. Patient denied any shortness of breath, chest pain, palpitations. At time of assessment patient is alert and oriented x3. Apparently patient was feeling more weak and can not walk well due to increased swelling to lower extremities. Per family bedside patient seemed to be little more confused as well. Upon evaluation in the ER patient found have negative troponins x3. Monitor level 77. CXR did show cardiomegaly with pulmonary vascular congestion and bilateral patchy airspace opacities, edema versus atypical infection. Small bilateral pleural effusions. Head CT negative for acute intracranial abnormality. Past Medical History As stated above. Past Surgical History Denies previous cardiac surgeries Family History: Diabetes mellitus G8 FATHER FH: stomach cancer G8 MOTHER Social History Denies alcohol, tobacco, or illicit drug use Allergies: Coded Allergies: Penicillins (Verified Allergy, Unknown, 12/14/24) Home Meds Active Scripts Lactulose (Lactulose) 10 Gm Brian, 10 GM PO TID for 90 Days, #90 PACK Prov:ANSON CHENG MD 05/24/25 Reported Medications Potassium Chloride (Klor-Con M10) 10 Meq Tab, 1 TAB PO DAILY, #30 TAB 5 Refills 05/23/25 Linagliptin Base (TRADJENTA) 5 Mg Tab, 5 MG PO DAILY, TAB 05/23/25 Vericiguat (Verquvo) 2.5 Mg Tab, 2.5 MG PO DAILY, TAB 05/23/25 Furosemide (Furosemide) 40 Mg Tab, 40 MG PO DAILY for 30 Days 05/23/25 Pregabalin (Lyrica) 150 Mg Cap, 150 MG PO HS, CAP 05/23/25 Naproxen (Naproxen) 375 Mg Tab, 375 MG PO DAILYPRN, TAB 05/23/25 Spironolactone (Spironolactone) 50 Mg Tab, 50 MG PO DAILY, TAB 05/23/25 Pantoprazole Sodium (PANTOPRAZOLE SODIUM) 40 Mg Inj, 40 MG IV DAILY, INJ 05/23/25 B-Complex Vitamins (B Complex) Cap, 1 OR DAILY, CAP 04/07/25 Timolol Maleate (Timolol Maleate Ophthalmi) 0.5 % Sandra, 1 DROP EACHEYE BID, #5 ML 5 Refills 02/05/25 Folic Acid (Folic Acid) 1 Mg Tab, 1 MG PO DAILY, TAB 02/05/25 Methotrexate (Methotrexate) 2.5 Mg Tab, 6 TAB PO QWEEKLY, #24 TAB 1 Refill 02/05/25 Sucralfate (CARAFATE) 1 Gm Tab, 1 GM PO BID, TAB 02/05/25 Clonidine Hcl (ONKALONQ-BUP-4 PATCH) 0.1 Mg/24 Hr Ph, 0.1 MG TD QWEEKLY, PATCH 02/05/25 Levothyroxine Sodium (Levothyroxine Sodium) 100 Mcg Tab, 100 MCG PO QAM for 30 Days, MCG 02/03/25 Linagliptin Base (TRADJENTA) 5 Mg Tab, 5 MG PO DAILY@BREAKFAST, TAB 02/03/25 Current Medications Current Medications Medications (Trade) Dose Ordered Sig/Zully Route PRN Reason Start Time Stop Time Status Last Admin Levothyroxine Sodium (Synthroid Tablet) 100 mcg QAM PO 07/08/25 07:00 07/08/25 06:53 Pantoprazole Sodium (Protonix) 40 mg DAILY IV 07/08/25 10:00 07/08/25 09:56 Sucralfate (Carafate Tab) 1 gm BID PO 07/07/25 22:00 07/08/25 09:56 Patient Own Medication 1 tab DAILY PO 07/08/25 10:00 Folic Acid 1 mg DAILY PO 07/08/25 10:00 07/08/25 09:56 Lactulose 15 ml TID PO 07/07/25 22:00 07/08/25 13:41 Patient Own Medication 5 mg DAILY PO 07/08/25 10:00 Pregabalin (Lyrica Capsule) 150 mg HS PO 07/07/25 22:00 07/07/25 22:46 Spironolactone (Aldactone) 50 mg DAILY PO 07/08/25 10:00 07/08/25 09:56 Patient Own Medication 2.5 mg DAILY PO 07/08/25 10:00 Sodium Chloride (Saline Lock Ns) 10 ml Q8HR IV 07/07/25 22:00 07/08/25 13:41 Docusate Sodium (Colace Capsule) 100 mg BIDPRN PRN PO FOR CONSTIPATION 07/07/25 18:45 Acetaminophen (Tylenol Tablet) 650 mg Q6HP PRN PO PAIN SCALE 1-3 OR TEMP>100.4 07/07/25 18:45 Acetaminophen/ Hydrocodone Bitart ([place] 5/325MG Tab) 1 tab Q4HP PRN PO MODERATE PAIN (4-6 PAIN SCALE) 07/07/25 18:45 Ondansetron HCl (Zofran) 4 mg Q4HP PRN IV NAUSEA / VOMITING 07/07/25 18:45 Enoxaparin Sodium (Lovenox) 40 mg DAILY SC 07/08/25 10:00 Hold Azithromycin 250 ml @ 125 mls/hr DAILY@2100 IV 07/07/25 21:46 07/07/25 22:54 Ceftriaxone Sodium 50 ml @ 100 mls/hr DAILY@09 IV 07/08/25 09:00 07/08/25 09:56 Furosemide (Lasix Injection) 40 mg BIDD IV 07/08/25 06:00 Review of Systems Constitutional: No: Fever, Chills, Sweats, Weakness, Malaise, Other Eyes: No: Pain, Vision change, Conjunctivae inflammation, Eyelid inflammation, Other, Redness ENT: No: Ear pain, Ear discharge, Nose pain, Nose discharge, Nose congestion, Mouth pain, Mouth swelling, Throat pain, Throat swelling, Other Respiratory: No: Cough, Dry, Shortness of breath, SOB with exertion, Wheezing, Hemoptysis, Pleuritic Pain, Sputum, Wheezing, Other Cardiovascular: ; No: Chest Pain Palpitations, Orthopnea, Paroxysmal Noc. Dyspnea, Edema, Lt Headedness, Other Gastrointestinal: No: Nausea, Vomiting, Abdominal Pain, Diarrhea, Constipation, Melena, Hematochezia, Other Genitourinary: No Dysuria, No Frequency, No Incontinence, No Hematuria, No Retention, No Other Musculoskeletal: neck pain; No: other, shoulder pain, arm pain, back pain, hand pain, leg pain, foot pain Skin: No: Rash, Lesions, Jaundice, Bruising, Other Neurological: Other (Dizziness, headache.); No: Weakness, Numbness, Incoordination, Change in speech, Confusion, Seizures Vital Signs Vital Signs Date Time Temp Pulse Resp B/P (MAP) Pulse Ox O2 Delivery O2 Flow Rate FiO2 07/08/25 12:32 97.5 64 18 134/44 (74) 99 97.5 07/08/25 08:00 Room Air* 0 21 Physical Exam General appearance: Patient is well-developed, well-nourished, in no acute distress. HEENT: Exam shows: Normocephalic, atraumatic, PERRLA, EOMI Neck: Supple, no bruits Chest: Equal chest excursion bilaterally. Breath sounds normal-no rales or wheezes. Heart: Rhythm: Regular rate; no murmur or gallop Abdomen: Exam shows: Soft, nontender, nondistended Musculoskeletal: No clubbing, no cyanosis, trace lower extremity edema Dermatology: Skin warm, moist. Neurological: Exam shows: Alert and oriented x4, normal speech Available prior records, labs, EKG, rhythm strips reviewed and interpreted Labs/Diagnostic Data Labs Test 07/08/25 07:11 07/07/25 19:00 07/07/25 18:30 07/07/25 14:42 Range/Units White Blood Count 3.8 L 4.4-10.8 10^3/uL Red Blood Count 3.14 L 4.0-5.20 10^6/uL Hemoglobin 11.5 L 12.2-16.2 g/dL Hematocrit 32.4 L 36.0-46.0 % Mean Corpuscular Volume 103.0 H 80.0-100.0 fL Mean Corpuscular Hemoglobin 36.7 H 28.0-32.0 pg Mean Corpuscular Hemoglobin Concent 35.6 32.0-36.0 g/dL Red Cell Distribution Width 14.2 11.8-14.3 % Platelet Count 63 L 140-450 10^3/uL Mean Platelet Volume 8.8 6.9-10.8 fL Neutrophils (%) (Auto) 52.2 37.0-80.0 % Lymphocytes (%) (Auto) 34.1 10.0-50.0 % Monocytes (%) (Auto) 9.2 0.0-12.0 % Eosinophils (%) (Auto) 3.8 0.0-7.0 % Basophils (%) (Auto) 0.7 0.0-2.0 % Neutrophils # (Auto) 2.0 1.6-8.6 10 ^3/uL Lymphocytes # (Auto) 1.3 0.4-5.4 10 ^3/uL Monocytes # (Auto) 0.4 0-1.3 10 ^3/uL Eosinophils # (Auto) 0.1 0-0.8 10 ^3/uL Basophils # (Auto) 0 0-0.2 10 ^3/uL Nucleated Red Blood Cells 0.2 % Sodium Level 143 136-145 mmol/L Potassium Level 3.8 3.5-5.1 mmol/L Chloride Level 109 H 98-107 mmol/L Carbon Dioxide Level 25 20-31 mmol/L Anion Gap 9 5-15 Blood Urea Nitrogen 21 # 9-23 mg/dL Creatinine 0.71 0.550-1.02 mg/dL Glomerular Filtration Rate Calc 86 >90 mL/min BUN/Creatinine Ratio 29.6 H 10.0-20.0 Serum Glucose 135 H 74-106 mg/dL Calcium Level 9.7 8.7-10.4 mg/dL Total Bilirubin 1.9 H 0.2-1.0 mg/dL Aspartate Amino Transferase (AST) 41 H 13-40 U/L Alanine Aminotransferase (ALT) 25 7-40 U/L Alkaline Phosphatase 154 H 46-116 U/L Total Protein 6.6 5.7-8.2 g/dL Albumin 3.2 3.2-4.8 g/dL Hepatitis B Surface Antigen Negative Negative Hepatitis C Antibody Negative Negative C-Reactive Protein High Sensitivity 0.44 <1.0 mg/dL Urine Color Yellow Yellow Urine Clarity Clear Clear Urine pH 6.5 5.0-9.0 Urine Specific In[place] 1.018 1.001-1.035 Urine Protein Negative Negative Urine Ketones Negative Negative Urine Blood Negative Negative /uL Urine Nitrite Negative Negative Urine Bilirubin Negative Negative Urine Urobilinogen Normal Negative mg/dL Urine Leukocyte Esterase Negative Negative /uL Urine RBC <1 0 - 4 /hpf Urine Microscopic WBC 1 0-5 /HPF Urine Squamous Epithelial Cells Few <5 /hpf Urine Bacteria None seen None Seen /hpf Urine Glucose Normal Normal mg/dL Troponin I High Sensitivity < 3 L </=34 ng/L Test 07/07/25 13:57 07/07/25 13:21 Range/Units Lactic Acid Level 1.8 0.4-2.0 mmol/L Magnesium Level 2.0 1.6-2.6 mg/dL Ammonia 77 H 11-32 umol/L B-Type Natriuretic Peptide 99.34 0-100 pg/mL POC Glucose 178 H 70-106 mg/dl Assessment * Acute on chronic HFpEF - continue diuresis with Lasix 40 mg IV twice daily, spironolactone 50 mg p.o. daily. Plan to DC on Lasix 40 mg p.o. daily with added p.r.n. extra 40 mg daily as needed for increased edema. Continue spironolactone on DC. Check echo. * HTN - BP stable off meds. Continue monitoring. * Liver cirrhosis , hyperammonemia- on lactulose. Continue management per primary team. Case Discussed with Dr Priest. Continue diuresing until euvolemic. Continue on Lasix on DC as above recs. Given no significant abnormalities on echo, There is no further cardiac work-up indicated at this time. Thank you for allowing us to participate in this patient's care. Will sign off. Critical care, time spent: 40 minutes This medical document was created using an electronic medical record system with voice recognition software and computerized dictation system. Although this document has been carefully reviewed, there might still be some phonetic and typographical errors. Occasional wrong-word or ``sound-alike substitutions may have occurred due to the inherent limitations of voice recognition software. These areas are purely typographical due to imperfections of the software programs and do not reflect any compromise in the patient's medical care. Please read the chart carefully and recognize, using context, where these substitutions have occurred. Thank you for allowing me to participate in the management of this patient. The treatment plan was discussed with and agreed upon by patient/family including requesting consultants and ordering of imaging/procedures. Plan discussed with: Patient, Daughter NYHA Physical activity limitations: Class3(Marked) ordinary Date of Service: Jul 08, 2025 Billing Provider: KOKO LOPES Cardiology Common Codes: [id number] INP/OBS CARE (High), [id number] CARE 30-74 MIN KOKO LOPES Jul 08, 2025 15:10
--- NOTE | 2025-07-08 17:42 | DVHPN2 ---
Subjective Patient's more awake alert oriented as per patient's daughter at bedside. 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 no motor deficit Medications Current Medications Medications Dose Ordered Sig/Zully Route Start Time Stop Time Status Last Admin Dose Admin Levothyroxine Sodium 100 mcg QAM PO 07/08/25 07:00 07/08/25 06:53 100 MCG Pantoprazole Sodium 40 mg DAILY IV 07/08/25 10:00 07/08/25 09:56 40 MG Sucralfate 1 gm BID PO 07/07/25 22:00 07/08/25 09:56 1 GM Patient Own Medication 1 tab DAILY PO 07/08/25 10:00 Folic Acid 1 mg DAILY PO 07/08/25 10:00 07/08/25 09:56 1 MG Lactulose 15 ml TID PO 07/07/25 22:00 07/08/25 13:41 15 ML Patient Own Medication 5 mg DAILY PO 07/08/25 10:00 Pregabalin 150 mg HS PO 07/07/25 22:00 07/07/25 22:46 150 MG Spironolactone 50 mg DAILY PO 07/08/25 10:00 07/08/25 09:56 50 MG Patient Own Medication 2.5 mg DAILY PO 07/08/25 10:00 Sodium Chloride 10 ml Q8HR IV 07/07/25 22:00 07/08/25 13:41 10 ML Docusate Sodium 100 mg BIDPRN PRN PO 07/07/25 18:45 Acetaminophen 650 mg Q6HP PRN PO 07/07/25 18:45 Acetaminophen/ Hydrocodone Bitart 1 tab Q4HP PRN PO 07/07/25 18:45 Ondansetron HCl 4 mg Q4HP PRN IV 07/07/25 18:45 Enoxaparin Sodium 40 mg DAILY SC 07/08/25 10:00 Hold Azithromycin 250 ml @ 125 mls/hr DAILY@2100 IV 07/07/25 21:46 07/07/25 22:54 125 MLS/HR Ceftriaxone Sodium 50 ml @ 100 mls/hr DAILY@09 IV 07/08/25 09:00 07/08/25 09:56 100 MLS/HR Furosemide 40 mg BIDD IV 07/08/25 06:00 Laboratory Results Laboratory Tests 07/08/25 07:11 Chemistry Test 07/08/25 07:11 Albumin 3.2 g/dL (3.2-4.8) Calcium Level 9.7 mg/dL (8.7-10.4) Total Protein 6.6 g/dL (5.7-8.2) LFT Test 07/08/25 07:11 Alanine Aminotransferase (ALT) 25 U/L (7-40) Alkaline Phosphatase 154 U/L (46-116) H Aspartate Amino Transferase (AST) 41 U/L (13-40) H Total Bilirubin 1.9 mg/dL (0.2-1.0) H Urinalysis Test 07/07/25 18:30 Urine Color Yellow (Yellow) Urine Clarity Clear (Clear) Urine pH 6.5 (5.0-9.0) Urine Specific [place] 1.018 (1.001-1.035) Urine Protein Negative (Negative) Urine Ketones Negative (Negative) Urine Blood Negative /uL (Negative) Urine Nitrite Negative (Negative) Urine Bilirubin Negative (Negative) Urine Urobilinogen Normal mg/dL (Negative) Urine Leukocyte Esterase Negative /uL (Negative) Urine RBC <1 /hpf (0 - 4) Urine Microscopic WBC 1 /HPF (0-5) Urine Squamous Epithelial Cells Few /hpf (<5) Urine Bacteria None seen /hpf (None Seen) Urine Glucose Normal mg/dL (Normal) Assessment/Plan Assessment/Plan 79-year-old female with a known history of diabetes mellitus type 2, hypertension, liver cirrhosis who presented to the hospital with altered mental status found to have 1. Acute hepatic encephalopathy 2. Hyperammonemia 3. Liver cirrhosis 4. Suspected pneumonia 5. Hypertension 6. Hypothyroidism 7. Diabetes mellitus type 2 -continue lactulose p.r.n. continue antibiotics PT evaluation and treatment Discharge plan Plan discussed with: Patient, Daughter My Orders Orders - QASIM MONROY MD Procedure Category Date Status Time Pt Request For Service PT 07/08/25 Logged 16:32 Date of Service: Jul 08, 2025 Billing Provider: QASIM MONROY MD Common Visit Codes: [id number] INP/OBS CARE(MOD) QASIM MONROY MD Jul 08, 2025 17:42
[2025-07-09] VITALS (7 sets, daily range): BP systolic 105–133; BP diastolic 41–70; PULSE 65–75; RESP 16–18; TEMP 97.9–98.2; O2SAT 94–98
[2025-07-09 05:42] LABS: Hemoglobin 12.4 g/dL (12.2-16.2); Mean Corpuscular Volume 101.7 fL (80.0-100.0); Nucleated Red Blood Cells % 0.1 %
[2025-07-09 05:44] LABS: Hematocrit 34.1 % (36.0-46.0); Mean Corpuscular Hemoglobin 37.1 pg (28.0-32.0)
[2025-07-09 06:04] LABS: Alanine Aminotransferase 27 U/L (7-40); Albumin 3.4 g/dL (3.2-4.8); Anion Gap 8 (5-15); BUN/Creatinine Ratio 24.0 (10.0-20.0); Blood Urea Nitrogen 18 mg/dL (9-23); Calcium 9.4 mg/dL (8.7-10.4); Carbon Dioxide 26 mmol/L (20-31); Chloride 105 mmol/L (98-107); Potassium 3.8 mmol/L (3.5-5.1); Sodium 139 mmol/L (136-145); Total Protein 6.9 g/dL (5.7-8.2)
[2025-07-09 06:36] LABS: Alkaline Phosphatase 160 U/L (46-116); Bilirubin, Total 2.1 mg/dL (0.2-1.0); Glucose 132 mg/dL (74-106)
[2025-07-09 06:39] LABS: Magnesium 1.6 mg/dL (1.6-2.6)
[2025-07-09] MEDS ORDERED: CEPH500C PO (17:32)
[2025-07-09] MEDS ORDERED: AZIT500T66 PO (17:32)
--- NOTE | 2025-07-09 17:34 | DVHDS2 ---
Discharge Summary Date of Admission Jul 07, 2025 at 18:45 Date of Discharge: Jul 09, 2025 Labs/Diagnostic Data: Laboratory Results Test 07/09/25 04:55 07/08/25 07:11 07/07/25 19:00 07/07/25 18:30 White Blood Count 5.0 10^3/uL (4.4-10.8) Red Blood Count 3.35 10^6/uL (4.0-5.20) Hemoglobin 12.4 g/dL (12.2-16.2) Hematocrit 34.1 % (36.0-46.0) Mean Corpuscular Volume 101.7 fL (80.0-100.0) Mean Corpuscular Hemoglobin 37.1 pg (28.0-32.0) Mean Corpuscular Hemoglobin Concent 36.5 g/dL (32.0-36.0) Red Cell Distribution Width 14.0 % (11.8-14.3) Platelet Count 69 10^3/uL (140-450) Mean Platelet Volume 9.1 fL (6.9-10.8) Neutrophils (%) (Auto) 54.6 % (37.0-80.0) Lymphocytes (%) (Auto) 30.9 % (10.0-50.0) Monocytes (%) (Auto) 10.1 % (0.0-12.0) Eosinophils (%) (Auto) 3.9 % (0.0-7.0) Basophils (%) (Auto) 0.5 % (0.0-2.0) Neutrophils # (Auto) 2.7 10 ^3/uL (1.6-8.6) Lymphocytes # (Auto) 1.5 10 ^3/uL (0.4-5.4) Monocytes # (Auto) 0.5 10 ^3/uL (0-1.3) Eosinophils # (Auto) 0.2 10 ^3/uL (0-0.8) Basophils # (Auto) 0 10 ^3/uL (0-0.2) Nucleated Red Blood Cells 0.1 % Sodium Level 139 mmol/L (136-145) Potassium Level 3.8 mmol/L (3.5-5.1) Chloride Level 105 mmol/L (98-107) Carbon Dioxide Level 26 mmol/L (20-31) Anion Gap 8 (5-15) Blood Urea Nitrogen 18 mg/dL (9-23) Creatinine 0.75 mg/dL (0.550-1.02) Glomerular Filtration Rate Calc 80 mL/min (>90) BUN/Creatinine Ratio 24.0 (10.0-20.0) Serum Glucose 132 mg/dL (74-106) Calcium Level 9.4 mg/dL (8.7-10.4) Magnesium Level 1.6 mg/dL (1.6-2.6) Total Bilirubin 2.1 mg/dL (0.2-1.0) Aspartate Amino Transferase (AST) 43 U/L (13-40) Alanine Aminotransferase (ALT) 27 U/L (7-40) Alkaline Phosphatase 160 U/L (46-116) Ammonia 40 umol/L (11-32) Total Protein 6.9 g/dL (5.7-8.2) Albumin 3.4 g/dL (3.2-4.8) Hepatitis B Surface Antigen Negative (Negative) Hepatitis C Antibody Negative (Negative) C-Reactive Protein High Sensitivity 0.44 mg/dL (<1.0) Urine Color Yellow (Yellow) Urine Clarity Clear (Clear) Urine pH 6.5 (5.0-9.0) Urine Specific Pandora 1.018 (1.001-1.035) Urine Protein Negative (Negative) Urine Ketones Negative (Negative) Urine Blood Negative /uL (Negative) Urine Nitrite Negative (Negative) Urine Bilirubin Negative (Negative) Urine Urobilinogen Normal mg/dL (Negative) Urine Leukocyte Esterase Negative /uL (Negative) Urine RBC <1 /hpf (0 - 4) Urine Microscopic WBC 1 /HPF (0-5) Urine Squamous Epithelial Cells Few /hpf (<5) Urine Bacteria None seen /hpf (None Seen) Urine Glucose Normal mg/dL (Normal) Test 07/07/25 14:42 07/07/25 13:57 07/07/25 13:21 Troponin I High Sensitivity < 3 ng/L (</=34) Lactic Acid Level 1.8 mmol/L (0.4-2.0) B-Type Natriuretic Peptide 99.34 pg/mL (0-100) POC Glucose 178 mg/dl (70-106) Other Laboratory Tests 07/09/25 04:55 Brief Hx & Hospital Course: 79-year-old female with a known history of diabetes mellitus type 2, hypertension, liver cirrhosis who presented to the hospital with altered mental status found to have acute hepatic encephalopathy. Patient was found to have high ammonia level. Patient was started on lactulose also was found to have suspected pneumonia given IV antibiotics. Patient's hospital course was uneventful. Patient's hospital course improved significantly and currently stable to be discharged. Condition at Discharge: Stable Final Diagnosis/Problems List 79-year-old female with a known history of diabetes mellitus type 2, hypertension, liver cirrhosis who presented to the hospital with altered mental status found to have 1. Acute hepatic encephalopathy 2. Hyperammonemia 3. Liver cirrhosis 4. Suspected pneumonia 5. Hypertension 6. Hypothyroidism 7. Diabetes mellitus type 2 Discharge Disposition: Home SNF Discharge Will this Physician continue t: No Discharge Instruct/Medications Diet: Cardiac 2g Na,low cholest Activity: No Restrictions, As Tolerated Follow Up/Referral: Follow up with the PCP in 1-2 weeks Follow up with the GI in 1-2 weeks. Medications: Resume home medications. New Medications: Azithromycin (Azithromycin) 500 Mg Tab 1 TAB PO DAILY, #5 TAB Cephalexin Monohydrate (Cephalexin) 500 Mg Cap 1 CAP PO TID for 7 Days, #21 CAP Continued Medications: B-Complex Vitamins (B Complex) Cap 1 OR DAILY, CAP Clonidine Hcl (Naeztnce-Eyl-1 Patch) 0.1 Mg/24 Hr Ph 0.1 MG TD QWEEKLY, PATCH Folic Acid (Folic Acid) 1 Mg Tab 1 MG PO DAILY, TAB Furosemide (Furosemide) 40 Mg Tab 40 MG PO DAILY for 30 Days Lactulose (Lactulose) 10 Gm Brian 10 GM PO TID for 90 Days, #90 PACK Levothyroxine Sodium (Levothyroxine Sodium) 100 Mcg Tab 100 MCG PO QAM for 30 Days, MCG Linagliptin Base (Tradjenta) 5 Mg Tab 5 MG PO DAILY@BREAKFAST, TAB Linagliptin Base (Tradjenta) 5 Mg Tab 5 MG PO DAILY, TAB Methotrexate (Methotrexate) 2.5 Mg Tab 6 TAB PO QWEEKLY, #24 TAB 1 Refill Naproxen (Naproxen) 375 Mg Tab 375 MG PO DAILYPRN, TAB Pantoprazole Sodium (Pantoprazole Sodium) 40 Mg Inj 40 MG IV DAILY, INJ Potassium Chloride (Klor-Con M10) 10 Meq Tab 1 TAB PO DAILY, #30 TAB 5 Refills Pregabalin (Lyrica) 150 Mg Cap 150 MG PO HS, CAP Spironolactone (Spironolactone) 50 Mg Tab 50 MG PO DAILY, TAB Sucralfate (Carafate) 1 Gm Tab 1 GM PO BID, TAB Timolol Maleate (Timolol Maleate Ophthalmi) 0.5 % Sandra 1 DROP EACHEYE BID, #5 ML 5 Refills Vericiguat (Verquvo) 2.5 Mg Tab 2.5 MG PO DAILY, TAB Scheduled Azithromycin (Azithromycin), 1 TAB PO DAILY B-Complex Vitamins (B Complex), 1 OR DAILY, (Reported) Cephalexin Monohydrate (Cephalexin), 1 CAP PO TID Clonidine Hcl (Swplyjgl-Biz-3 Patch), 0.1 MG TD QWEEKLY, (Reported) Folic Acid (Folic Acid), 1 MG PO DAILY, (Reported) Furosemide (Furosemide), 40 MG PO DAILY, (Reported) Lactulose (Lactulose), 10 GM PO TID Levothyroxine Sodium (Levothyroxine Sodium), 100 MCG PO QAM, (Reported) Linagliptin Base (Tradjenta), 5 MG PO DAILY@BREAKFAST, (Reported) Linagliptin Base (Tradjenta), 5 MG PO DAILY, (Reported) Methotrexate (Methotrexate), 6 TAB PO QWEEKLY, (Reported) Naproxen (Naproxen), 375 MG PO DAILYPRN, (Reported) Pantoprazole Sodium (Pantoprazole Sodium), 40 MG IV DAILY, (Reported) Potassium Chloride (Klor-Con M10), 1 TAB PO DAILY, (Reported) Pregabalin (Lyrica), 150 MG PO HS, (Reported) Spironolactone (Spironolactone), 50 MG PO DAILY, (Reported) Sucralfate (Carafate), 1 GM PO BID, (Reported) Timolol Maleate (Timolol Maleate Ophthalmi), 1 DROP EACHEYE BID, (Reported) Vericiguat (Verquvo), 2.5 MG PO DAILY, (Reported) Discharge Statement: "Patient was advised to return to the ER or call 911 if any headaches, dizziness, shortness of breath, chest pain, abdominal pain, bleeding, fevers, or worsening of medical condition. Patient was counseled about treatment plan, medications, possible side effects, patientverbalized understanding. All questions were answered to the best of my ability. This discharge took greater then 30 minutes in planning, reviewing documentation, counseling the patient, and discussing with other team members." ASSESSMENT ASSESSMENT Assessment 79-year-old female with a known history of diabetes mellitus type 2, hypertension, liver cirrhosis who presented to the hospital with altered mental status found to have 1. Acute hepatic encephalopathy 2. Hyperammonemia 3. Liver cirrhosis 4. Suspected pneumonia 5. Hypertension 6. Hypothyroidism 7. Diabetes mellitus type 2 Date of Service: Jul 09, 2025 Billing Provider: QASIM MONROY MD Common Visit Codes: 97626-TJN/OBS DISCH DAY >30min QASIM MONROY MD Jul 09, 2025 17:34
--- NOTE | 2025-07-10 13:24 | ECG ---
[facility] Test Date: 2025-07-07 Test Time: 13:17:28 Pat Name: DANIELA MADSEN Department: ED Room: 0270T Gender: F Medicaid Plan Compliance Director: cathy : [id number] Requested By: MARIAA DIXON Order Number: [id number] Reading MD: Measurements Intervals Ashley Rate: 63 P: 8 MO: 189 QRS: -61 QRSD: 111 T: 9 QT: 450 QTc: 461 Interpretive Statements Sinus rhythm Left anterior fascicular block Consider anterior infarct Minimal ST elevation, lateral leads Please click the below link to view image of tracing.
== END 2025-07-09 18:51 | disposition home or self-care (01) | DRG 194 ==
LOC: ER 13:08 → OVERFLOW 18:45 → TELE-WESTW 21:19
PROVIDERS: ADMIT Internal Medicine; ATTEND Internal Medicine
DX: I11.0 Hypertensive heart disease with heart failure (principal); D61.818 Other pancytopenia; K76.82 Hepatic encephalopathy; E72.20 Disorder of urea cycle metabolism, unspecified; J15.9 Unspecified bacterial pneumonia; K74.60 Unspecified cirrhosis of liver; I50.33 Acute on chronic diastolic (congestive) heart failure; E11.9 Type 2 diabetes mellitus without complications; E03.9 Hypothyroidism, unspecified; Z80.0 Family history of malignant neoplasm of digestive organs; Z88.0 Allergy status to penicillin; Z83.3 Family history of diabetes mellitus
CPT/HCPCS: 36415; 70450; 71045; 80053; 81001; 82140; 82962; 83605; 83735; 83880; 84484; 85025; 86141; 86803; 87040; 87070; 87077; 87186; 87205; 87340; 93005; 97163; G0378; J2470

== ENCOUNTER 2025-09-12 08:41 | Outpatient (CLI) | payer MEDICAID ==
[~2025-09-12 08:41] MED LIST changes: +AZIT500T66 PO; +CEPH500C PO
--- NOTE | 2025-09-12 12:43 | DVHSR ---
APPROVED REPORT EXAM: Two-dimensional and M-mode echocardiogram with Doppler and color Doppler. DIMENSIONS LVDd 4.2 (3.8-5.7cm) LA (2D) 3.9 (1.9-4.0cm) Aortic Root 3.1 (2.0-3.7cm) LVDs 2.9 (2.5-4.0cm) LA (MM) (1.9-4.0cm) Aortic Cusp Exc 1.4 (1.5-2.0cm) EF (%) 55.0 (55-70%) Rt. Atrium 3.3 (1.9-4.0cm) Asc. Aorta 3.1 cm IVSd 1.3 (0.7-1.1cm) RV (D) 3.8 (1.8-2.4cm) PWd 1.0 (0.7-1.1cm) Mitral Valve Mitral Mitral Stenosis E wave 1.01m/s MV Mean GR. mmHg A wave 1.32m/s MV Peak GR. 69mmHg E/A ratio 0.8 2D MVA cm2 DECEL Time 218ms PRESS 1/2 Time ms Aortic Valve Aortic Valve Aortic Stenosis V1 1.12m/s AO Mean GR. 7mmHg V2 1.65m/s AO Peak GR. 11mmHg LVOT Diameter 2.1 (1.8-2.4cm) Doppler CIRO 2.35cm2 Pulmonic Valve V2 1.21m/s Tricuspid Valve TR Velocity 3.26m/s RVSP 55mmHg LEFT VENTRICLE The left ventricle is normal size. The Ejection Fraction is 50-55%. RIGHT VENTRICLE The right ventricle is borderline dilated. ATRIA The left atrial size is normal. The right atrium size is normal. The interatrial septum is intact with no evidence for an atrial septal defect. MITRAL VALVE The mitral valve is normal in structure and function. Mitral annular calcification is mild to moderate. Mitral regurgitation is mild. PULMONIC VALVE The pulmonic valve is not well visualized. TRICUSPID VALVE The tricuspid valve is grossly normal. There is mild to moderate tricuspid regurgitation. AORTIC VALVE The aortic valve opens well. The aortic valve is mildlycalcified. No aortic regurgitation is present. GREAT VESSELS The aortic root is normal size. PERICARDIAL EFFUSION There is no pericardial effusion. Other Information Technically limited study due to body habitus. Conclusion LVH EF >55% MOD MAC THICKENRD POSTERIOR MV LEAFLET MILD TR MILD MR MILD AV CALCIFICAYION WOTH ADEQUATE CUSP EXCURSION
== END 2025-09-12 17:00 | disposition home or self-care (01) ==
LOC: Rad HDHVI 08:41
PROVIDERS: ATTEND Internal Medicine Cardiovascular Disease
DX: I08.3 Combined rheumatic disorders of mitral, aortic and tricuspid valves (principal); I11.0 Hypertensive heart disease with heart failure; I50.33 Acute on chronic diastolic (congestive) heart failure
CPT/HCPCS: 93306

== ENCOUNTER 2025-09-17 09:26 | Emergency (ER) | payer MEDICAID ==
[~2025-09-17] VITALS: Ht 157.5 cm; Wt 56.0 kg
--- NOTE | 2025-09-17 09:56 | ED.PDOC ---
Sue. trauma (HPI) HPI Comments 79 y/o F, with PMHx of HTN, DM, and rheumatoid arthritis presents to the ED for CC of s/p fall injury. Granddaughter reports, patient had a slip and fall this morning (09/17/25) landing on her back, and hitting her head. Following trauma patient c/o 5/10 pain to her posterior parietal region. Patient denies nausea, vomiting, blurred vision, confusion, or loss of consciousness. No other symptoms or modifying factors are present at this time. Chief Complaint: Fall Injury Time Seen by MD: 09:50 Primary Care Provider: RUBINA Reviewed notes: Nurses Notes, Medications, Allergies Allergies: Coded Allergies: Penicillins (Verified Allergy, Unknown, 12/14/24) Home Meds Active Scripts Azithromycin (Azithromycin) 500 Mg Tab, 1 TAB PO DAILY, #5 TAB Prov:QASIM MONROY MD 07/09/25 Cephalexin Monohydrate (Cephalexin) 500 Mg Cap, 1 CAP PO TID for 7 Days, #21 CAP Prov:QASIM MONROY MD 07/09/25 Lactulose (Lactulose) 10 Gm Brian, 10 GM PO TID for 90 Days, #90 PACK Prov:ANSON CHENG MD 05/24/25 Reported Medications Potassium Chloride (Klor-Con M10) 10 Meq Tab, 1 TAB PO DAILY, #30 TAB 5 Refills 05/23/25 Linagliptin Base (TRADJENTA) 5 Mg Tab, 5 MG PO DAILY, TAB 05/23/25 Vericiguat (Verquvo) 2.5 Mg Tab, 2.5 MG PO DAILY, TAB 05/23/25 Furosemide (Furosemide) 40 Mg Tab, 40 MG PO DAILY for 30 Days 05/23/25 Pregabalin (Lyrica) 150 Mg Cap, 150 MG PO HS, CAP 05/23/25 Naproxen (Naproxen) 375 Mg Tab, 375 MG PO DAILYPRN, TAB 05/23/25 Spironolactone (Spironolactone) 50 Mg Tab, 50 MG PO DAILY, TAB 05/23/25 Pantoprazole Sodium (PANTOPRAZOLE SODIUM) 40 Mg Inj, 40 MG IV DAILY, INJ 05/23/25 B-Complex Vitamins (B Complex) Cap, 1 OR DAILY, CAP 04/07/25 Timolol Maleate (Timolol Maleate Ophthalmi) 0.5 % Sandra, 1 DROP EACHEYE BID, #5 ML 5 Refills 02/05/25 Folic Acid (Folic Acid) 1 Mg Tab, 1 MG PO DAILY, TAB 02/05/25 Methotrexate (Methotrexate) 2.5 Mg Tab, 6 TAB PO QWEEKLY, #24 TAB 1 Refill 02/05/25 Sucralfate (CARAFATE) 1 Gm Tab, 1 GM PO BID, TAB 02/05/25 Clonidine Hcl (NUTBEOJF-XMD-2 PATCH) 0.1 Mg/24 Hr Ph, 0.1 MG TD QWEEKLY, PATCH 02/05/25 Levothyroxine Sodium (Levothyroxine Sodium) 100 Mcg Tab, 100 MCG PO QAM for 30 Days, MCG 02/03/25 Linagliptin Base (TRADJENTA) 5 Mg Tab, 5 MG PO DAILY@BREAKFAST, TAB 02/03/25 Information Source: Patient, Relative (GrandChild) Mode of Arrival: Ambulatory Severity: Moderate Timing: Hours Duration: Since onset Prehospital treatment: None Location: Head Location of laceration: None Mechanism: Fall Associated signs and symtoms: None Past Medical History PAST MEDICAL HISTORY: Arthritis, CHF, DM, HTN, Liver Surgical History: Denies all surgeries 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 Family History Family History: Reviewed,noncontributory to illness, Unknown Social History Smoker: Non-Smoker Alcohol: Denies ETOH Use Drugs: Denies Drug Use Lives In: Home Constitutional: denies: chills, diaphoresis, fatigue, fever, malaise, sweats, weakness, others EENTM: denies: blurred vision, double vision, ear bleeding, ear discharge, ear drainage, ear pain, ear ringing, eye pain, eye redness, hearing loss, mouth pain, mouth swelling, nasal discharge, nose bleeding, nose congestion, nose pain, photophobia, tearing, throat pain, throat swelling, voice changes, others Respiratory: denies: cough, hemoptysis, orthopnea, SOB at rest, shortness of breath, SOB with excertion, stridor, wheezing, others Cardiovascular: denies: chest pain, dizzy spells, diaphoresis, Dyspnea on exertion, edema, irregular heart beat, left arm pain, lightheadedness, palpitations, PND, syncope, others Gastrointestinal: denies: abdomen distended, abdominal pain, blood streaked bowels, constipated, diarrhea, dysphagia, difficulty swallowing, hematemesis, melena, nausea, poor appetite, poor fluid intake, rectal bleeding, rectal pain, vomiting, others Genitourinary: denies: abnormal vagina bleeding, burning, dyspareunia, dysuria, flank pain, frequency, hematuria, incontinence, pain, , vagina discharge, urgency, others Neurological: denies: dizziness, fainting, headache, left sided numbness, left sided weakness, numbness, paresthesia, pre-existing deficit, right sided numbness, right sided weakness, seizure, speech problems, tingling, tremors, weakness, others Musculoskeletal: reports: others (head pain); denies: back pain, gout, joint pain, joint swelling, muscle pain, muscle stiffness, neck pain Integumetry: denies: bruises, change in color, change in hair/nails, dryness, laceration, lesions, lumps, rash, wounds, others Allergic/Immunocompromised: denies: Difficulty Healing, Frequent Infections, Hives, Itching, others Hematologic/Lymphatic: denies: anemia, blood clots, easy bleeding, easy bruising, swollen glands, others Endocrine: denies: excessive hunger, excessive sweating, excessive thirst, excessive urination, flushing, intolerance to cold, intolerance to heat, unexplained weight gain, unexplained weight loss, others Psychiatric: denies: anxiety, bipolar disorder, depression, hopeless, panic disorder, schizophrenia, sleepless, suicidal, others All Other Systems: Reviewed and Negative Physical Exam General Appearance: No Apparent Distress HEENT: Normal ENT Inspection, Pharynx Normal, TMs Normal Neck: Full Range of Motion, Non-Tender, Normal, Normal Inspection Respiratory: Chest Non-Tender, Lungs Clear, No Accessory Muscle Use, No Respiratory Distress, Normal Breath Sounds Cardiovascular: No Edema, No JVD, No Murmur, No Gallop, Normal Peripheral Pulses, Regular Rate/Rhythm Breast Exam: Deferred Gastrointestinal: No Organomegaly, Non Tender, No Pulsatile Mass, Normal Bowel Sounds, Soft Genitalia: Deferred Pelvic: Deferred Rectal: Deferred Extremities: No calf tenderness, Normal capillary refill, Normal inspection, Normal range of motion, Non-tender, No pedal edema Musculoskeletal : Apperance: Normal Neurologic: Alert, insurance plan specialist II-XII nml as Tested, No Motor Deficits, Normal Affect, Normal Mood, No Sensory Deficits Cerebellar Function: Normal Reflexes: Normal Skin: Dry, Normal Color, Warm, Other (Hematoma to the scalp with mild tenderness) Lymphatic: No Adenopathy Was a procedure done? Was a procedure done?: No Differential Diagnosis Multiple Trauma: Fractures, Other (sprain, dislocation, concussion) X-Ray, Labs, Meds, VS Vital Signs Date Time Temp Pulse Resp B/P (MAP) Pulse Ox O2 Delivery O2 Flow Rate FiO2 09/17/25 10:24 97.9 56 18 112/53 (72) 97 97.9 09/17/25 09:28 97.6 94 16 123/57 66 97.6 CAT scan of the head shows a scalp hematoma but otherwise negative. There is no sign of any intracranial bleed or mass effect. There is no sign of any foreign body. The patient is being discharged at this time The patient will follow up with the primary care doctor The patient will return to the emergency department's condition worsens. The patient understands and agrees with the management. Images Reviewed?: Images reviewed and evaluated by me Time of 1ST Reevaluation: 10:20 Reevaluation 1ST: Unchanged Patient Education/Counseling: Diagnosis, Treatment, Prognosis, Need For Follow Up Family Education/Counseling: Diagnosis, Treatment, Prognosis, Need For Follow Up Departure 1 Departure Time of Disposition: 10:41 Impression: Primary Impression: History of fall Additional Impressions: Blunt head trauma Qualified Codes: S09.8XXA - Other specified injuries of head, initial encounter Hematoma of occipital region of scalp Disposition: 01 HOME / SELF CARE / HOMELESS Condition: Fair Discharged With: Self Critical Care Note Critical Care Time?: No Stability Stability form required: No Heart Score Heart Score: Heart Score Response (Comments) Value History N/A 0 EKG N/A 0 Age N/A 0 Risk Factors N/A 0 Troponin N/A 0 Total 0 I personally scribed for ROMINA MAGALLON MD ([email or web address]) on 09/17/25 at 09:56. Electronically submitted by Danette Oneal ([email or web address]). ROMINA MAGALLON MD Sep 17, 2025 09:56
--- NOTE | 2025-09-17 10:38 | DVH ---
CT HEAD WITHOUT CONTRAST INDICATION: fall EXAM DATE: 09/17/2025 10:04 AM COMPARISON: CT HEAD WITHOUT CONTRAST on DOS: 07/14/25, CT HEAD WITHOUT CONTRAST on DOS: 07/07/25, CT HEAD WITHOUT CONTRAST on DOS: 05/23/25 RADIATION DOSE: CTDIvol: 53.99 mGy, DLP: 1831.79 mGy*cm PROCEDURE: CT scans of the head were obtained from the vertex to the skull base. Sagittal and coronal reconstructions were provided. All CT scans at this medical facility are performed using dose modulation techniques as appropriate to a performed exam including the following: Automated exposure control was utilized; adjustment of the MA and/or KV according to patient size; and use of iterative reconstruction technique. FINDINGS: There is sulcal and ventricular prominence. The brainshows normal morphology and young-white matter differentiation, without intracranial hemorrhage, extra-axial fluid collection, mass effect or acute large vessel infarct. The ventricles are normal in size. The basal cisterns are patent. The skull and visible facial bones are intact. The paranasal sinuses, mastoid air cells and middle ear cavities are well-aerated. Left occipital scalp hematoma. IMPRESSION: Left occipital scalp hematoma. No acute intracranial abnormality.
[2025-09-17 11:30] VITALS: BP 104/56; PULSE 69; RESP 18; TEMP 97.9; O2SAT 98
== END 2025-09-17 11:47 | disposition home or self-care (01) ==
LOC: ER 09:26
DX: S00.03XA Contusion of scalp, initial encounter (principal); Z79.899 Other long term (current) drug therapy; Z88.0 Allergy status to penicillin; E11.9 Type 2 diabetes mellitus without complications; W01.10XA Fall on same level from slipping, tripping and stumbling with subsequent striking against unspecified object, initial encounter; Y93.89 Activity, other specified; Y92.89 Other specified places as the place of occurrence of the external cause; Y99.8 Other external cause status
CPT/HCPCS: 70450

== ENCOUNTER 2025-10-27 09:21 | Inpatient (IN) | payer MEDICAID ==
[~2025-10-27] VITALS: Ht 152.4 cm; Wt 65.5 kg
--- NOTE | 2025-10-27 10:13 | ED.PDOC ---
History of Present Illness HPI Comments This is an 80-year-old female with past medical history of hypertension, diabetes mellitus type 2, hypothyroidism, liver cirrhosis, cystic fibrosis who was brought in to the ED via EMS after the family noticed her to be in an altered mental state and stated that her oxygen saturation on room air was 72. She was discharged last night from [facility] after being treated for pneumonia. On the way to the ED , temperature was 99.5, blood pressure 138/57, pulse 82, blood glucose 148 and oxygen saturation 97 on 1 L oxygen by nasal cannula. All history was taken from the EMS as patient was confused. Lactic acid was 2.2 and sepsis protocol was initiated. Chief Complaint: Shortness of Breath Time Seen by MD: 09:45 Primary Care Provider: RUBINA Allergies: Coded Allergies: Penicillins (Verified Allergy, Unknown, 12/14/24) Home Meds Active Scripts Azithromycin (Azithromycin) 500 Mg Tab, 1 TAB PO DAILY, #5 TAB Prov:QASIM MONROY MD 07/09/25 Cephalexin Monohydrate (Cephalexin) 500 Mg Cap, 1 CAP PO TID for 7 Days, #21 CAP Prov:QASIM MONROY MD 07/09/25 Lactulose (Lactulose) 10 Gm Brian, 10 GM PO TID for 90 Days, #90 PACK Prov:ANSON CHENG MD 05/24/25 Reported Medications Potassium Chloride (Klor-Con M10) 10 Meq Tab, 1 TAB PO DAILY, #30 TAB 5 Refills 05/23/25 Linagliptin Base (TRADJENTA) 5 Mg Tab, 5 MG PO DAILY, TAB 05/23/25 Vericiguat (Verquvo) 2.5 Mg Tab, 2.5 MG PO DAILY, TAB 05/23/25 Furosemide (Furosemide) 40 Mg Tab, 40 MG PO DAILY for 30 Days 05/23/25 Pregabalin (Lyrica) 150 Mg Cap, 150 MG PO HS, CAP 05/23/25 Naproxen (Naproxen) 375 Mg Tab, 375 MG PO DAILYPRN, TAB 05/23/25 Spironolactone (Spironolactone) 50 Mg Tab, 50 MG PO DAILY, TAB 05/23/25 Pantoprazole Sodium (PANTOPRAZOLE SODIUM) 40 Mg Inj, 40 MG IV DAILY, INJ 05/23/25 B-Complex Vitamins (B Complex) Cap, 1 OR DAILY, CAP 04/07/25 Timolol Maleate (Timolol Maleate Ophthalmi) 0.5 % Sandra, 1 DROP EACHEYE BID, #5 ML 5 Refills 02/05/25 Folic Acid (Folic Acid) 1 Mg Tab, 1 MG PO DAILY, TAB 02/05/25 Methotrexate (Methotrexate) 2.5 Mg Tab, 6 TAB PO QWEEKLY, #24 TAB 1 Refill 02/05/25 Sucralfate (CARAFATE) 1 Gm Tab, 1 GM PO BID, TAB 02/05/25 Clonidine Hcl (GWHSDOGW-XBF-1 PATCH) 0.1 Mg/24 Hr Ph, 0.1 MG TD QWEEKLY, PATCH 02/05/25 Levothyroxine Sodium (Levothyroxine Sodium) 100 Mcg Tab, 100 MCG PO QAM for 30 Days, MCG 02/03/25 Linagliptin Base (TRADJENTA) 5 Mg Tab, 5 MG PO DAILY@BREAKFAST, TAB 02/03/25 Information Source: Emergency Med Personnel Mode of Arrival: EMS Severity: Moderate Timing: Hours Duration: Since onset Prehospital treatment: Accucheck, Oxygen Past Medical History PAST MEDICAL HISTORY: Arthritis, CHF, DM, HTN, Liver, Thyroid Surgical History: Denies all surgeries NEUROPSYCHOLOGY SERVICE DIRECTOR History: Denies all NEUROPSYCHOLOGY SERVICE DIRECTOR Hx Family History Family History: Reviewed,noncontributory to illness, Unknown Social History Smoker: Unobtainable Alcohol: Unobtainable Drugs: Unobtainable Lives In: Home Constitutional: denies: chills, diaphoresis, fatigue, fever, malaise, sweats, weakness, others EENTM: denies: blurred vision, double vision, ear bleeding, ear discharge, ear drainage, ear pain, ear ringing, eye pain, eye redness, hearing loss, mouth pain, mouth swelling, nasal discharge, nose bleeding, nose congestion, nose pain, photophobia, tearing, throat pain, throat swelling, voice changes, others Respiratory: reports: SOB at rest, shortness of breath; denies: cough, hemoptysis, orthopnea, SOB with excertion, stridor, wheezing, others Cardiovascular: denies: chest pain, dizzy spells, diaphoresis, Dyspnea on exertion, edema, irregular heart beat, left arm pain, lightheadedness, palpitations, PND, syncope, others Gastrointestinal: denies: abdomen distended, abdominal pain, blood streaked bowels, constipated, diarrhea, dysphagia, difficulty swallowing, hematemesis, melena, nausea, poor appetite, poor fluid intake, rectal bleeding, rectal pain, vomiting, others Genitourinary: denies: abnormal vagina bleeding, burning, dyspareunia, dysuria, flank pain, frequency, hematuria, incontinence, pain, , vagina discharge, urgency, others Neurological: denies: dizziness, fainting, headache, left sided numbness, left sided weakness, numbness, paresthesia, pre-existing deficit, right sided numbness, right sided weakness, seizure, speech problems, tingling, tremors, w eakness, others Musculoskeletal: denies: back pain, gout, joint pain, joint swelling, muscle pain, muscle stiffness, neck pain, others Integumetry: denies: bruises, change in color, change in hair/nails, dryness, laceration, lesions, lumps, rash, wounds, others Allergic/Immunocompromised: denies: Difficulty Healing, Frequent Infections, Hives, Itching, others Hematologic/Lymphatic: denies: anemia, blood clots, easy bleeding, easy bruising, swollen glands, others Endocrine: denies: excessive hunger, excessive sweating, excessive thirst, excessive urination, flushing, intolerance to cold, intolerance to heat, unexplained weight gain, unexplained weight loss, others Psychiatric: denies: anxiety, bipolar disorder, depression, hopeless, panic disorder, schizophrenia, sleepless, suicidal, others Physical Exam General Appearance: None HEENT: Normal ENT Inspection Neck: Non-Tender, Normal, Normal Inspection Respiratory: Rhonchi Cardiovascular: No Edema, No Murmur, Regular Rate/Rhythm Breast Exam: Normal Gastrointestinal: Non Tender, Normal Bowel Sounds Genitalia: Deferred Pelvic: Deferred Rectal: Deferred Extremities: Normal capillary refill, Normal inspection, Normal range of motion, Non-tender, No pedal edema Neurologic: NOT DONE Cerebellar Function: NOT DONE Reflexes: Normal Skin: None Lymphatic: No Adenopathy Was a procedure done? Was a procedure done?: No Differential Dx Considerations may include: Acute metabolic encephalopathy, pneumonia, septicemia, JUAN M X-Ray, Labs, Meds, VS Vital Signs Date Time Temp Pulse Resp B/P (MAP) Pulse Ox O2 Delivery O2 Flow Rate FiO2 10/27/25 09:33 82 10/27/25 09:25 99.5 70 12 136/62 99 99.5 Lab Test 10/27/25 10:00 Range/Units White Blood Count 4.4 4.4-10.8 10^3/uL Red Blood Count 3.10 L 4.0-5.20 10^6/uL Hemoglobin 10.4 L 12.2-16.2 g/dL Hematocrit 30.3 L 36.0-46.0 % Mean Corpuscular Volume 97.7 80.0-100.0 fL Mean Corpuscular Hemoglobin 33.7 H 28.0-32.0 pg Mean Corpuscular Hemoglobin Concent 34.5 32.0-36.0 g/dL Red Cell Distribution Width 14.7 H 11.8-14.3 % Platelet Count 80 L 140-450 10^3/uL Mean Platelet Volume 8.4 6.9-10.8 fL Neutrophils (%) (Auto) 73.0 37.0-80.0 % Lymphocytes (%) (Auto) 16.7 10.0-50.0 % Monocytes (%) (Auto) 6.5 0.0-12.0 % Eosinophils (%) (Auto) 3.3 0.0-7.0 % Basophils (%) (Auto) 0.5 0.0-2.0 % Neutrophils # (Auto) 3.2 1.6-8.6 10 ^3/uL Lymphocytes # (Auto) 0.7 0.4-5.4 10 ^3/uL Monocytes # (Auto) 0.3 0-1.3 10 ^3/uL Eosinophils # (Auto) 0.1 0-0.8 10 ^3/uL Basophils # (Auto) 0 0-0.2 10 ^3/uL Nucleated Red Blood Cells 0.1 % Platelet Estimate Decreased Sodium Level 149 H 136-145 mmol/L Potassium Level 4.5 3.5-5.1 mmol/L Chloride Level 111 H 98-107 mmol/L Carbon Dioxide Level 28 20-31 mmol/L Anion Gap 10 5-15 Blood Urea Nitrogen 41 H 9-23 mg/dL Creatinine 1.40 H 0.550-1.02 mg/dL Glomerular Filtration Rate Calc 38 >90 mL/min BUN/Creatinine Ratio 29.3 H 10.0-20.0 Serum Glucose 139 H 74-106 mg/dL Lactic Acid Level 2.2 *H 0.4-2.0 mmol/L Calcium Level 12.9 H 8.7-10.4 mg/dL Time of 1ST Reevaluation: 10:15 Reevaluation 1ST: Unchanged Patient Education/Counseling: Other (patient confused) Family Education/Counseling: No Family Present SEPSIS Sepsis Screen Date sepsis recognized/suspect: Oct 27, 2025 Time Sepsis recognized/suspect: 924 Recent Procedure: No On Antibiotic Therapy: No Respiratory Rate >20: No Heart Rate >90: No Temp<36 C (96.8 F) or >38.3 C: No SBP <90 or MAP <65 mmHG: No New Acute Mental Status Change: No Is the patient on CPAP, BIPAP,: No Physician Orders Urinalysis (10/27/25 09:48) Chest Xray 1 View (10/27/25 09:48) Blood Culture (10/27/25 09:54) Electrocardigram (10/27/25 10:26) Lactated Ringer's (10/27/25 11:00) Lactated Ringer's (10/27/25 11:30) Vancomycin 1gm/250ml Kit (10/27/25 11:30) Notify Md If Map <65 Or Bp<90 (10/27/25 11:21) If Map<65 Start Vasopressor (10/27/25 11:21) Sepsis Reassesment After Fluid (10/27/25 12:21) Ceftriaxone 1gm/50ml (Rocephin) (10/27/25 11:30) Azithromycin Tablet (Zithromax Tablet) (10/27/25 11:30) Vital Signs Date Time Temp Pulse Resp B/P (MAP) Pulse Ox O2 Delivery O2 Flow Rate FiO2 10/27/25 09:33 82 10/27/25 09:25 99.5 70 12 136/62 99 99.5 Laboratory Tests Test 10/27/25 10:00 Lactic Acid Level 2.2 mmol/L (0.4-2.0) *H White Blood Count 4.4 10^3/uL (4.4-10.8) Departure 1 Departure Time of Disposition: 11:00 Impression: Primary Impression: Metabolic encephalopathy Additional Impressions: Pneumonia Altered mental status JUAN M (acute kidney injury) Disposition: 30 STILL A PATIENT Condition: Unstable Critical Care Note Critical Care Time?: No Stability Stability form required: No STEPHANIE POPE RESIDENT Oct 27, 2025 10:13
[2025-10-27 10:29] LABS: Hemoglobin 10.4 g/dL (12.2-16.2)
[2025-10-27 10:31] LABS: Hematocrit 30.3 % (36.0-46.0); Mean Corpuscular Hemoglobin 33.7 pg (28.0-32.0); Mean Corpuscular Volume 97.7 fL (80.0-100.0); Nucleated Red Blood Cells % 0.1 %
[2025-10-27 10:41] LABS: Potassium 4.5 mmol/L (3.5-5.1)
[2025-10-27 10:42] LABS: Anion Gap 10 (5-15); Carbon Dioxide 28 mmol/L (20-31)
[2025-10-27 10:44] LABS: Calcium 12.9 mg/dL (8.7-10.4); Chloride 111 mmol/L (98-107); Sodium 149 mmol/L (136-145)
[2025-10-27 10:48] LABS: BUN/Creatinine Ratio 29.3 (10.0-20.0); Blood Urea Nitrogen 41 mg/dL (9-23); Glucose 139 mg/dL (74-106)
[2025-10-27 10:54] LABS: Lactic Acid w/Reflex 2.2 mmol/L (0.4-2.0)
--- NOTE | 2025-10-27 10:56 | DVH ---
CHEST RADIOGRAPH Indication: shortness of breath Technique: Single frontal view of the chest was obtained COMPARISON: XR CHEST 1 VIEW on DOS: 10/23/25, XY CHEST XRAY 1 VIEW on DOS: 07/18/25, XY CHEST XRAY 1 VIEW on DOS: 07/14/25, XY CHEST PORTABLE on DOS: 07/07/25, XY CHEST PORTABLE on DOS: 05/23/25 FINDINGS: Lines and Tubes: None Lungs: Severe multifocal airspace disease. Pleura: No effusion. No pneumothorax. Cardiomediastinal contours: Unremarkable Bones: Unremarkable IMPRESSION: Severe multifocal airspace disease.
[2025-10-27 11:30] VITALS: PULSE 81; RESP 18; O2SAT 96
[2025-10-27] MEDS: LACTATED RINGER'S 1,350 ML IV ONE (12:00)
[2025-10-27] MEDS: VANCOMYCIN 1GM/250ML KIT 250 ML IV ONE (12:45)
[2025-10-27] MEDS: AZITHROMYCIN 250 MG TAB PO ONE (13:37)
[2025-10-27 13:59] LABS: Urine Budding Yeast OCCASIONAL /hpf (None Seen); Urine Protein, UAD TRACE (Negative)
[2025-10-27] MEDS: LACTATED RINGER'S 1,000 ML IV ONE (14:00)
--- NOTE | 2025-10-27 14:38 | DVHHPRES ---
History of Present Illness Resident Creating Document: KARLENE JOSE RESIDENT History of Present Illness Rupali Alvarado, An 80-year-old female with a history of hypertension, type 2 diabetes mellitus, hypothyroidism, liver cirrhosis, and cystic fibrosis was brought to the ED via EMS for altered mental status and hypoxemia noted by family (SpO? 72% on room air). She was discharged last night from [facility] after treatment for pneumonia. On EMS evaluation, vitals were: T 99.5F, BP 138/57 mmHg, HR 82 bpm, blood glucose 148 mg/dL, and SpO? 97% on 1 L nasal cannula. History obtained from EMS as patient was confused. Initial labs revealed lactic acid 2.2 mmol/L; sepsis protocol was initiated. Further history was taken from the patient's daughter and granddaughter. PMHx: Rheumatoid Arthritis, HFpEF CHF, DM, HTN, Hypothyroidism, Hypercalcemia, Chronic liver cirrhosis, Chronic constipation, PSHx: Denies all surgeries Family history: Non contributory. Social history: As per family not currently on any recreational substances. Smoking, alcohol, and drug use unobtainable; patient lives at home. Review of Systems Constitutional: Yes: Weakness; No: Fever, Chills, Sweats, Malaise, Other Eyes: No: Pain, Vision change, Conjunctivae inflammation, Eyelid inflammation, Other, Redness ENT: No: Ear pain, Ear discharge, Nose pain, Nose discharge, Nose congestion, Mouth pain, Mouth swelling, Throat pain, Throat swelling, Other Respiratory: Cough, Shortness of breath, Sputum; No: Dry, SOB with excertion, Wheezing, Hemoptysis, Pleuritic Pain, Wheezing, Other Cardiovascular: No: Chest Pain, Palpitations, Orthopnea, Paroxysmal Noc. Dyspnea, Edema, Lt Headedness, Other Gastrointestinal: No: Nausea, Vomiting, Abdominal Pain, Diarrhea, Constipation, Melena, Hematochezia, Other Genitourinary: Dysuria, Frequency, Incontinence; No Hematuria, No Retention, No Other Musculoskeletal: No: other, neck pain, shoulder pain, arm pain, back pain, hand pain, leg pain, foot pain Skin: No: Rash, Lesions, Jaundice, Bruising, Other Neurological: Weakness, Incoordination, Confusion; No: Numbness, Change in speech, Seizures, Other Allergies: Coded Allergies: Penicillins (Verified Allergy, Unknown, 12/14/24) Exam Vital Signs Vital Signs Date Time Temp Pulse Resp B/P (MAP) Pulse Ox O2 Delivery O2 Flow Rate FiO2 10/27/25 11:30 81 18 96 Nasal Cannula* 4 36 10/27/25 11:30 97.9 143/50 (81) 97.9 General Appearance: Alert, Cooperative, mild distress HEENT: Atraumatic, PERRLA, EOMI, Other (dry mucosa) Respiratory: Other (rales and crackles, on 3-4 L NC) Cardiovascular: Regular rate, Normal S1, Normal S2, No murmurs Abdominal: Normal bowel sounds, Soft, No tenderness, No hepatospenomegaly Extremities: No clubbing, No cyanosis, No edema, Normal pulses, No tenderness/swelling Skin: No rashes, No breakdown, No significant lesion Neuro: Other (cannot evaluate. responding to pain and verbal sound but mostly sleepy. ) Psych/Mental Status: Other (cannot evaluate. ) Labs/Xrays Labs Test 10/27/25 13:40 10/27/25 13:38 10/27/25 11:53 10/27/25 10:00 Range/Units Ammonia 12 11-32 umol/L Urine Color Light-yellow Yellow Urine Clarity Turbid H Clear Urine pH 5.0 5.0-9.0 Urine Specific [place] 1.014 1.001-1.035 Urine Protein Trace H Negative Urine Ketones Negative Negative Urine Blood 1+ H Negative /uL Urine Nitrite Negative Negative Urine Bilirubin Negative Negative Urine Urobilinogen Normal Negative mg/dL Urine Leukocyte Esterase 3+ Negative /uL Urine RBC 10 0 - 4 /hpf Urine Microscopic WBC 232 H 0-5 /HPF Urine Squamous Epithelial Cells Few <5 /hpf Urine Bacteria Few H None Seen /hpf Urine Hyaline Casts Many 0 - 2 /lpf Urine Mucus Few None Seen Urine Yeast (Budding) Occasional None Seen /hpf Urine Glucose Normal Normal mg/dL Lactic Acid Level 2.2 *H 0.4-2.0 mmol/L White Blood Count 4.4 4.4-10.8 10^3/uL Red Blood Count 3.10 L 4.0-5.20 10^6/uL Hemoglobin 10.4 L 12.2-16.2 g/dL Hematocrit 30.3 L 36.0-46.0 % Mean Corpuscular Volume 97.7 80.0-100.0 fL Mean Corpuscular Hemoglobin 33.7 H 28.0-32.0 pg Mean Corpuscular Hemoglobin Concent 34.5 32.0-36.0 g/dL Red Cell Distribution Width 14.7 H 11.8-14.3 % Platelet Count 80 L 140-450 10^3/uL Mean Platelet Volume 8.4 6.9-10.8 fL Neutrophils (%) (Auto) 73.0 37.0-80.0 % Lymphocytes (%) (Auto) 16.7 10.0-50.0 % Monocytes (%) (Auto) 6.5 0.0-12.0 % Eosinophils (%) (Auto) 3.3 0.0-7.0 % Basophils (%) (Auto) 0.5 0.0-2.0 % Neutrophils # (Auto) 3.2 1.6-8.6 10 ^3/uL Lymphocytes # (Auto) 0.7 0.4-5.4 10 ^3/uL Monocytes # (Auto) 0.3 0-1.3 10 ^3/uL Eosinophils # (Auto) 0.1 0-0.8 10 ^3/uL Basophils # (Auto) 0 0-0.2 10 ^3/uL Nucleated Red Blood Cells 0.1 % Platelet Estimate Decreased Sodium Level 149 H 136-145 mmol/L Potassium Level 4.5 3.5-5.1 mmol/L Chloride Level 111 H 98-107 mmol/L Carbon Dioxide Level 28 20-31 mmol/L Anion Gap 10 5-15 Blood Urea Nitrogen 41 H 9-23 mg/dL Creatinine 1.40 H 0.550-1.02 mg/dL Glomerular Filtration Rate Calc 38 >90 mL/min BUN/Creatinine Ratio 29.3 H 10.0-20.0 Serum Glucose 139 H 74-106 mg/dL Calcium Level 12.9 H 8.7-10.4 mg/dL SEPSIS Sepsis Screen Date sepsis recognized/suspect: Oct 27, 2025 Time Sepsis recognized/suspect: 924 Recent Procedure: No On Antibiotic Therapy: No Respiratory Rate >20: No Heart Rate >90: No Temp<36 C (96.8 F) or >38.3 C: No SBP <90 or MAP <65 mmHG: No New Acute Mental Status Change: No Is the patient on CPAP, BIPAP,: No Physician Orders Chest Xray 1 View (10/27/25 09:48) Blood Culture (10/27/25 09:54) Electrocardigram (10/27/25 10:26) Lactated Ringer's (10/27/25 11:00) Notify Md If Map <65 Or Bp<90 (10/27/25 11:21) If Map<65 Start Vasopressor (10/27/25 11:21) Sepsis Reassesment After Fluid (10/27/25 12:21) Insert/Manage Urinary Catheter QSHIFT (10/27/25 13:05) Urine Bacterial Culture (10/27/25 13:05) Lactic Acid W/ Reflex Order (10/27/25 14:26) Admit (10/27/25 14:36) Allergies (10/27/25 14:36) Code Status (10/27/25 14:36) 0.9% Ns 1000 Ml (10/27/25 14:45) Hydrocodone-Acet 5/325mg Tab ([place] 5/32 (10/27/25 14:45) Vital Signs Date Time Temp Pulse Resp B/P (MAP) Pulse Ox O2 Delivery O2 Flow Rate FiO2 10/27/25 11:30 81 18 96 Nasal Cannula* 4 36 10/27/25 11:30 97.9 81 18 143/50 (81) 96 97.9 10/27/25 09:33 82 10/27/25 09:25 99.5 70 12 136/62 99 99.5 Laboratory Tests Test 10/27/25 10:00 10/27/25 11:53 Lactic Acid Level 2.2 mmol/L (0.4-2.0) *H 2.2 mmol/L (0.4-2.0) *H White Blood Count 4.4 10^3/uL (4.4-10.8) Medications Medications Dose Ordered Sig/Zully Route Start Time Stop Time Status Last Admin Dose Admin Ceftriaxone Sodium 50 ml @ 100 mls/hr ONCE ONCE IV 10/27/25 11:30 10/27/25 11:59 DC 10/27/25 12:00 Lactated Ringer's 1,000 ml @ 75 mls/hr [id number] ONCE IV 10/27/25 11:00 10/28/25 00:19 10/27/25 14:00 Lactated Ringer's 1,350 ml @ 1,350 mls/hr ONCE ONCE IV 10/27/25 11:30 10/27/25 12:29 DC 10/27/25 12:00 Vancomycin HCl 250 ml @ 250 mls/hr ONCE ONCE IV 10/27/25 11:30 10/27/25 12:29 DC 10/27/25 12:45 Assessment/Plan Assessment/Plan #Encephalopathy toxic vs metabolic: ALOC CT head -ve for stroke. likely due to infection. aspiration precautions. #Community acquired pneumonia: Gram +ve, -ve and atypical. sputum culture, MRSA, aspiration precautions, r/o viral disease. #Acute hypoxic respiratory failure: wean oxygen to keep spo2>94% #Acute complicated UTI: cultures, IV abx. Recurrent UTI but no history of MDR. #Severe sepsis: lactic acidosis, s/p IV fluid. cultures to follow. #Liver cirrhosis: ammonia wnl, lactulose, avoid hepatotoxins. conservative management. #HFpEF, looks hypovolemic: hold home Lasix, low room for GDMT. #Hypothyroidism: continue levothyroxine 100 mcg. #GERD/PUD: cont PPI. #Rheumatoid arthritis: hold home DMARDs. #Hypercalcemia: home calcitonin to continue. #Penicillin allergy, avoid Zosyn. PUD prophylaxis: protonix 40mg/not needed DVT prophylaxis: SCD/brisk movement, no Lovenox as lower pletlets. Barriers to discharge: Medical diagnosis and management in progress. Patient lives with self / family. Independent/need supportive device/wheelchair/person support for ADL. PT and SW consult as needed. PCP: Dr. Mauro. Specialist Relevant To Admission: none. Case discussed with Dr. Andersen. Code Status: Full Code. Discussion with the family and the care plan needed 27 minutes bedside. Plan discussed with: Patient My Orders Orders - KARLENE JOSE RESIDENT Procedure Category Date Status Time Admit ADMIT 10/27/25 Verified 14:36 Allergies [place] 10/27/25 Verified 14:36 Code Status CODE 10/27/25 Verified 14:36 0.9% Ns 1000 Ml PHA 10/27/25 Verified 14:45 Hydrocodone-Acet PHA 10/27/25 Verified 5/325mg Tab ([place] 14:45 Date of Service: Oct 27, 2025 Billing Provider: TUNDE ANDERSEN MD Common Visit Codes: 41992-EFNAENA INP/OBS CARE (HIGH) Secondary Visit Codes: 56238-ZQOLYXQT CARE PLAN 30 MINUTES KARLENE JOSE RESIDENT Oct 27, 2025 14:38
[2025-10-27] MEDS ORDERED: DOCUSATE SOD 100 MG CAP PO PRN (14:45)
[2025-10-27] MEDS ORDERED: NITROGLYCERIN 0.4 MG SL TAB SL PRN (14:45)
[2025-10-27] MEDS ORDERED: ONDANSETRON HCL 4 MG/2 ML VIAL IV PRN (14:45)
[2025-10-27] MEDS: SODIUM CHLORIDE 0.9% 1,000 ML IV SCH (14:45)
[2025-10-27] MEDS ORDERED: ACETAMINOPHEN 325 MG TAB PO PRN (14:45)
[2025-10-27 15:15] LABS: Lactic Acid w/Reflex 2.6 mmol/L (0.4-2.0)
[2025-10-27] MEDS ORDERED: MORPHINE SULFATE 4 MG/ML SYR/VIAL IV PRN ×2 (15:45)
[2025-10-27 16:44] VITALS: BP 155/60; PULSE 71; RESP 16; TEMP 97.6; O2SAT 100
[2025-10-27] MEDS ORDERED: HYDR-4491 PO (16:44)
[2025-10-27 16:45] VITALS: PULSE 71; RESP 16; O2SAT 100
[2025-10-27 17:00] VITALS: BP 155/60; PULSE 71; RESP 18; TEMP 97.6; O2SAT 100
[2025-10-27] MEDS: HYDROcodone-ACET 5/325MG TAB PO PRN (18:07)
[2025-10-27 20:00] VITALS: PULSE 72; PULSE 76; RESP 12; O2SAT 95
[2025-10-27 21:00] VITALS: BP 133/65; PULSE 72; RESP 12; TEMP 98.1; O2SAT 99
[2025-10-27] MEDS ORDERED: VANCOMYCIN PER PHARMACY 0 MG IV SCH (22:30)
[2025-10-27 23:08] LABS: INR 1.28 (0.9-1.15); Prothrombin Time 13.2 sec (9.3-11.8)
[2025-10-27] MEDS: CEFEPIME 2GM/50ML NS 50 ML IV SCH (23:30)
[2025-10-27] MEDS: LACTATED RINGER'S 500 ML IV ONE (23:31)
[2025-10-27 23:33] LABS: Protein, Urine 32.3 mg/dL (1-14); Protein, Urine 32.5 mg/dL (1-14)
[2025-10-27 23:43] LABS: Alanine Aminotransferase 25.0 U/L (7-40); Magnesium 2.1 mg/dL (1.6-2.6); Total Protein 6.7 g/dL (5.7-8.2)
[2025-10-27 23:50] LABS: Albumin 2.8 g/dL (3.2-4.8); Alkaline Phosphatase 182.0 U/L (46-116); Bilirubin, Direct 0.7 mg/dL (<0.3); Bilirubin, Total 1.5 mg/dL (0.2-1.0)
[2025-10-28] VITALS (9 sets, daily range): BP systolic 114–132; BP diastolic 59–76; PULSE 69–85; RESP 12–18; TEMP 97.7–98.4; O2SAT 96–99
--- NOTE | 2025-10-28 00:06 | DVH ---
INDICATION: rule out renal obstruction, TECHNIQUE: Multiple real-time sonographic images of the kidneys and bladder were obtained. COMPARISON: US KIDNEY on DOS: 07/15/25, US ABDOMEN LIMITED on DOS: 07/14/25, US LIVER on DOS: 02/04/25, US BILAT LOW EXT ART DUPLEX on DOS: 02/03/25, US BILAT LOWER DVT on DOS: 02/02/25 FINDINGS: RIGHT kidney measures 8.1 cm in length. No stones or hydronephrosis. LEFT kidney measures 9.1 cm in length. No stones or hydronephrosis. Omer catheter in-situ. Small amount of ascites noted. IMPRESSION: No evidence for renal obstruction.
[2025-10-28 00:26] LABS: Lipase 17.0 U/L (12-53)
[2025-10-28 00:53] LABS: COVID19 ANTIGEN SOFIA FIA NEGATIVE (NEGATIVE)
[2025-10-28] MEDS: LACTATED RINGER'S 1,000 ML IV SCH (01:22)
[2025-10-28 06:59] LABS: Nucleated Red Blood Cells % 0.2 %
[2025-10-28 07:01] LABS: Hematocrit 29.0 % (36.0-46.0); Hemoglobin 9.9 g/dL (12.2-16.2); Mean Corpuscular Hemoglobin 33.8 pg (28.0-32.0); Mean Corpuscular Volume 98.7 fL (80.0-100.0)
--- NOTE | 2025-10-28 07:05 | ECG ---
[facility] Test Date: 2025-10-27 Test Time: 09:33:38 Pat Name: DANIELA MADSEN Department: [facility] ED Room: 0214T A Gender: F Library Consultant: PILI : 1945 Requested By: KAMRYN BAL Order Number: [id number] Reading MD: Dawson Priest Measurements Intervals [place] Rate: 82 P: 25 NE: 171 QRS: -54 QRSD: 109 T: 73 QT: 386 QTc: 451 Interpretive Statements Sinus rhythm Left anterior fascicular block Consider anterior infarct Electronically Signed On 10-30-2025 15:22:17 PST by Dawson Priest Please click the below link to view image of tracing.
[2025-10-28 07:11] LABS: Alanine Aminotransferase 20 U/L (7-40); Anion Gap 8 (5-15); BUN/Creatinine Ratio 24.1 (10.0-20.0); Carbon Dioxide 28 mmol/L (20-31); Potassium 4.5 mmol/L (3.5-5.1); Total Protein 6.4 g/dL (5.7-8.2)
[2025-10-28 07:13] LABS: Albumin 2.6 g/dL (3.2-4.8); Alkaline Phosphatase 156 U/L (46-116); Bilirubin, Total 1.3 mg/dL (0.2-1.0); Blood Urea Nitrogen 27 mg/dL (9-23); Calcium 12.8 mg/dL (8.7-10.4); Chloride 111 mmol/L (98-107); Glucose 111 mg/dL (74-106); Sodium 147 mmol/L (136-145)
[2025-10-28] MEDS: AZITHROMYCIN 500MG/250ML 250 ML IV SCH (09:44)
[2025-10-28] MEDS: LACTULOSE 20Gm/30ML SOLN PO SCH (09:44)
--- NOTE | 2025-10-28 12:38 | DVHPN2 ---
Reviewed: Care Plan, H&P, Labs, Medications, Previous Orders, Radiology Changes from previous H/P or p: No Changes Eyes: No Pain, No Vision change, No Conjunctivae inflammation, No Eyelid inflammation, No Other, No Redness ENT: No Ear pain, No Ear discharge, No Nose pain, No Nose discharge, No Nose congestion, No Mouth pain, No Mouth swelling, No Throat pain, No Throat swelling, No Other Cardiovascular: No Chest Pain, No Palpitations, No Orthopnea, No Paroxysmal Noc. Dyspnea, No Edema, No Lt Headedness, No Other Respiratory: Cough; No Dry; Shortness of breath; No SOB with excertion, No Wheezing, No Hemoptysis, No Pleuritic Pain; Sputum; No Other Gastrointestinal: No Nausea, No Vomiting, No Abdominal Pain, No Diarrhea, No Constipation, No Melena, No Hematochezia, No Other Genitourinary: Dysuria, Frequency, Incontinence; No Hematuria, No Retention, No Other Musculoskeletal: No other, No neck pain, No shoulder pain, No arm pain, No back pain, No hand pain, No leg pain, No foot pain Skin: No Rash, No Lesions, No Jaundice, No Bruising, No Other Objective Vitals Vital Signs Date Time Temp Pulse Resp B/P (MAP) Pulse Ox O2 Delivery O2 Flow Rate FiO2 10/28/25 09:00 97.7 85 17 129/59 (82) 99 97.7 10/28/25 08:08 Nasal Cannula* 2 28 Intake/Output Intake and Output 10/28/25 07:00 Intake Total 1050 ml Output Total 350 ml Balance 700 ml Intake Oral 0 ml IV Total 1050 ml Output Urine Total 350 ml Medications Current Medications Medications Dose Ordered Sig/Zully Route Start Time Stop Time Status Last Admin Dose Admin Acetaminophen/ Hydrocodone Bitart 1 tab Q4HP PRN PO 10/27/25 14:45 10/27/25 18:07 1 TAB Ondansetron HCl 4 mg Q4HP PRN IV 10/27/25 14:45 Docusate Sodium 100 mg BIDPRN PRN PO 10/27/25 14:45 Acetaminophen 650 mg Q6HP PRN PO 10/27/25 14:45 Morphine Sulfate 2 mg Q4HPRN PRN IV 10/27/25 15:45 Nitroglycerin 0.4 mg Q5MINP PRN SL 10/27/25 14:45 Morphine Sulfate 2 mg Q30M PRN IV 10/27/25 15:45 Vancomycin HCl 0 ml @ 0 mls/hr PER PHARMACY IV 10/27/25 22:30 UNV Cefepime HCl 50 ml @ 50 mls/hr Q12HR IV 10/27/25 22:30 10/28/25 09:44 50 MLS/HR Lactated Ringer's 1,000 ml @ 125 mls/hr Q8H IV 10/27/25 22:30 10/28/25 05:40 125 MLS/HR Lactulose 15 ml DAILY PO 10/28/25 10:00 10/28/25 09:44 15 ML Azithromycin 250 ml @ 125 mls/hr DAILY IV 10/28/25 10:00 10/28/25 09:44 125 MLS/HR Fluconazole 100 ml @ 100 mls/hr DAILY IV 10/28/25 12:00 UNV Laboratory Results Laboratory Tests 10/28/25 04:22 Chemistry Test 10/28/25 04:22 Albumin 2.6 g/dL (3.2-4.8) L Calcium Level 12.8 mg/dL (8.7-10.4) H Total Protein 6.4 g/dL (5.7-8.2) Coagulation Test 10/27/25 22:43 Prothrombin Time 13.2 sec (9.3-11.8) H Prothrombin Time INR 1.28 (0.9-1.15) H LFT Test 10/28/25 04:22 Alanine Aminotransferase (ALT) 20 U/L (7-40) Alkaline Phosphatase 156 U/L (46-116) H Aspartate Amino Transferase (AST) 50 U/L (13-40) H Total Bilirubin 1.3 mg/dL (0.2-1.0) H Urinalysis Test 10/27/25 13:38 Urine Color Light-yellow (Yellow) Urine Clarity Turbid (Clear) H Urine pH 5.0 (5.0-9.0) Urine Specific [place] 1.014 (1.001-1.035) Urine Protein Trace (Negative) H Urine Ketones Negative (Negative) Urine Blood 1+ /uL (Negative) H Urine Nitrite Negative (Negative) Urine Bilirubin Negative (Negative) Urine Urobilinogen Normal mg/dL (Negative) Urine Leukocyte Esterase 3+ /uL (Negative) Urine RBC 10 /hpf (0 - 4) Urine Microscopic WBC 232 /HPF (0-5) H Urine Squamous Epithelial Cells Few /hpf (<5) Urine Bacteria Few /hpf (None Seen) H Urine Hyaline Casts Many /lpf (0 - 2) Urine Mucus Few (None Seen) Urine Yeast (Budding) Occasional /hpf (None Urine Osmolality 452 mOsm/kg Urine Creatinine 67.12 mg/dL (30.0-125.0) Urine Protein/Creatinine Ratio 0.48 Urine Sodium 48 mmol/L (40-220) Urine Potassium 46 mmol/L (12-62) Urine Glucose Normal mg/dL (Normal) Urine Total Protein 32.5 mg/dL (1-14) H Microbiology Microbiology Date/Time Source Procedure Growth Status 10/27/25 13:38 Urine - [place] Urine Culture - Preliminary Resulted 10/27/25 10:10 Blood Blood Culture - Preliminary NO GROWTH AFTER 24 HOURS OF INCUBATION. Resulted Labs and/or images reviewed: Labs reviewed by me, Image(s) reviewed by me Assessment/Plan Assessment/Plan Acute hypoxic respiratory failure: Oxygen by nasal cannula Acute bilateral community-acquired pneumonia Gram-positive versus gm neg: Cefepime azithromycin Severe Sepsis secondary to community-acquired pneumonia with a lactic acidosis Hypothyroidism History of rheumatoid arthritis Hypercalcemia continue home medication calcitonin Acute metabolic encephalopathy Acute on chronic congestive heart failure: Hold Lasix Acute urinary tract infection: Urine cultures growing yeast: Diflucan Blood cultures negative Cirrhosis of liver: Check ammonia level History of esophageal varices Grand Daughter Mariely [phone] at bedside. The patient lives with granddaughter Patient was discharged 10-27-25 from [facility] after treatment for pneumoniae Time spent 65 minutes Advanced care planning time 20 minutes Patient is full code Plan discussed with: Patient Date of Service: Oct 28, 2025 Billing Provider: GAVIOTA WRIGHT MD Common Visit Codes: [id number] CARE 30-74 MIN GAVIOTA WRIGHT MD Oct 28, 2025 12:38
[2025-10-28] MEDS: FLUCONAZOLE 200MG/100ML 100 ML IV SCH (13:00)
[2025-10-29] VITALS (8 sets, daily range): BP systolic 111–164; BP diastolic 55–79; PULSE 65–83; RESP 16–19; TEMP 97.1–98.3; O2SAT 97–99
--- NOTE | 2025-10-29 08:22 | DVHPN2 ---
Reviewed: Care Plan, H&P, Labs, Medications, Previous Orders, Radiology Changes from previous H/P or p: No Changes Eyes: No Pain, No Vision change, No Conjunctivae inflammation, No Eyelid inflammation, No Other, No Redness ENT: No Ear pain, No Ear discharge, No Nose pain, No Nose discharge, No Nose congestion, No Mouth pain, No Mouth swelling, No Throat pain, No Throat swelling, No Other Cardiovascular: No Chest Pain, No Palpitations, No Orthopnea, No Paroxysmal Noc. Dyspnea, No Edema, No Lt Headedness, No Other Respiratory: Cough; No Dry; Shortness of breath; No SOB with excertion, No Wheezing, No Hemoptysis, No Pleuritic Pain; Sputum; No Other Gastrointestinal: No Nausea, No Vomiting, No Abdominal Pain, No Diarrhea, No Constipation, No Melena, No Hematochezia, No Other Genitourinary: Dysuria, Frequency, Incontinence; No Hematuria, No Retention, No Other Musculoskeletal: No other, No neck pain, No shoulder pain, No arm pain, No back pain, No hand pain, No leg pain, No foot pain Skin: No Rash, No Lesions, No Jaundice, No Bruising, No Other Objective Vitals Vital Signs Date Time Temp Pulse Resp B/P (MAP) Pulse Ox O2 Delivery O2 Flow Rate FiO2 10/29/25 07:39 Nasal Cannula* 2 28 10/29/25 05:00 97.1 83 19 140/66 (90) 98 97.1 Intake/Output Intake and Output 10/29/25 07:00 Intake Total 1150 ml Output Total 775 ml Balance 375 ml Intake Oral 650 ml IV Total 500 ml Output Urine Total 775 ml Medications Current Medications Medications Dose Ordered Sig/Zully Route Start Time Stop Time Status Last Admin Dose Admin Acetaminophen/ Hydrocodone Bitart 1 tab Q4HP PRN PO 10/27/25 14:45 10/27/25 18:07 1 TAB Ondansetron HCl 4 mg Q4HP PRN IV 10/27/25 14:45 Docusate Sodium 100 mg BIDPRN PRN PO 10/27/25 14:45 Acetaminophen 650 mg Q6HP PRN PO 10/27/25 14:45 Morphine Sulfate 2 mg Q4HPRN PRN IV 10/27/25 15:45 Nitroglycerin 0.4 mg Q5MINP PRN SL 10/27/25 14:45 Morphine Sulfate 2 mg Q30M PRN IV 10/27/25 15:45 Cefepime HCl 50 ml @ 50 mls/hr Q12HR IV 10/27/25 22:30 10/28/25 21:21 50 MLS/HR Lactated Ringer's 1,000 ml @ 125 mls/hr Q8H IV 10/27/25 22:30 10/28/25 14:07 125 MLS/HR Lactulose 15 ml DAILY PO 10/28/25 10:00 10/28/25 09:44 15 ML Azithromycin 250 ml @ 125 mls/hr DAILY IV 10/28/25 10:00 10/28/25 09:44 125 MLS/HR Fluconazole 100 ml @ 100 mls/hr DAILY IV 10/28/25 13:00 10/28/25 13:00 100 MLS/HR Laboratory Results Laboratory Tests 10/28/25 04:22 Urinalysis Test 10/27/25 13:38 Urine Color Light-yellow (Yellow) Urine Clarity Turbid (Clear) H Urine pH 5.0 (5.0-9.0) Urine Specific [place] 1.014 (1.001-1.035) Urine Protein Trace (Negative) H Urine Ketones Negative (Negative) Urine Blood 1+ /uL (Negative) H Urine Nitrite Negative (Negative) Urine Bilirubin Negative (Negative) Urine Urobilinogen Normal mg/dL (Negative) Urine Leukocyte Esterase 3+ /uL (Negative) Urine RBC 10 /hpf (0 - 4) Urine Microscopic WBC 232 /HPF (0-5) H Urine Squamous Epithelial Cells Few /hpf (<5) Urine Bacteria Few /hpf (None Seen) H Urine Hyaline Casts Many /lpf (0 - 2) Urine Mucus Few (None Seen) Urine Yeast (Budding) Occasional /hpf (None Urine Osmolality 452 mOsm/kg Urine Creatinine 67.12 mg/dL (30.0-125.0) Urine Protein/Creatinine Ratio 0.48 Urine Sodium 48 mmol/L (40-220) Urine Potassium 46 mmol/L (12-62) Urine Glucose Normal mg/dL (Normal) Urine Total Protein 32.5 mg/dL (1-14) H Microbiology Microbiology Date/Time Source Procedure Growth Status 10/27/25 16:55 Nose MRSA Screen - Final Complete 10/27/25 13:38 Urine - [place] Urine Culture - Preliminary Resulted 10/27/25 10:10 Blood Blood Culture - Preliminary NO GROWTH AFTER 24 HOURS OF INCUBATION. Resulted Labs and/or images reviewed: Labs reviewed by me, Image(s) reviewed by me Assessment/Plan Assessment/Plan Acute hypoxic respiratory failure: Oxygen by nasal cannula Acute bilateral community-acquired pneumonia Gram-positive versus gm neg: Cefepime azithromycin Severe Sepsis secondary to community-acquired pneumonia with lactic acidosis Hypothyroidism History of rheumatoid arthritis Hypercalcemia continue home medication calcitrol Acute metabolic encephalopathy Acute on chronic congestive heart failure: Hold Lasix Acute urinary tract infection: Urine cultures growing yeast: Diflucan IV Blood cultures negative Cirrhosis of liver: Ammonia level normal History of fall two weeks ago: Seen in urgent care [facility] sent to [facility] 10/23/25 to 10/27/25 diagnosed with pneumonia sent home and the granddaughter brought the patient back same day to the [facility] for shortness of breath History of esophageal varices Grand Daughter Mariely [phone] at bedside. The patient lives with granddaughter Time spent 55 minutes Advanced care planning time 20 minutes Patient is full code Plan discussed with: Patient Date of Service: Oct 29, 2025 Billing Provider: GAVIOTA WRIGHT MD Common Visit Codes: [id number] CARE 30-74 MIN GAVIOTA WRIGHT MD Oct 29, 2025 08:22
--- NOTE | 2025-10-29 09:43 | DVH ---
CT brain without contrast CLINICAL INDICATION: ALOC history of fall two weeks ago spine comparison: 2024 FINDINGS: The study was performed in a multidetector scanner. This study performed taking axial images from the skull base up to the vertex. Both brain and bone windows are photographed. Dose lowering techniques have been used including automated exposure control and adjustment of mA and/or KV according to patient size. Cortical sulcal markings are prominent. No areas of hemorrhage or edema. 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 The ventricles are normal in size. There is no midline shift. Calcified granuloma of the right parietal convexity and in the left temporal lobe IMPRESSION: 1. No acute intracranial pathology compared to previous exam Computed Tomographic Radiation Dosimetry Report: Total CTDI vol = 55 mGy Total DLP = 972 mGy-cm All CT scans at this medical facility are performed using dose modulation techniques as appropriate to a performed exam including the following: Automated exposure control was utilized; adjustment of the MA and/or KvP according to patient size; and use of iterative reconstruction technique.
[2025-10-29] MEDS: GABAPENTIN 100 MG CAP PO SCH (09:47)
[2025-10-29] MEDS: FUROSEMIDE 20 MG TAB PO SCH (09:48)
[2025-10-29] MEDS: POTASSIUM CHLORIDE 8 MEQ TAB PO SCH (10:00)
[2025-10-29] MEDS: TIMOLOL MAL 0.5% OPTH(EYE) SOL 5ML OP ONE (11:12)
[2025-10-29] MEDS: LACTATED RINGER'S 1,000 ML IV SCH (15:00)
[2025-10-30] VITALS (8 sets, daily range): BP systolic 18–147; BP diastolic 50–85; PULSE 64–89; RESP 15–18; TEMP 97.5–98.9; O2SAT 95–99
--- NOTE | 2025-10-30 09:35 | DVHPN2 ---
Reviewed: Care Plan, H&P, Labs, Medications, Previous Orders, Radiology Changes from previous H/P or p: No Changes Eyes: No Pain, No Vision change, No Conjunctivae inflammation, No Eyelid inflammation, No Other, No Redness ENT: No Ear pain, No Ear discharge, No Nose pain, No Nose discharge, No Nose congestion, No Mouth pain, No Mouth swelling, No Throat pain, No Throat swelling, No Other Cardiovascular: No Chest Pain, No Palpitations, No Orthopnea, No Paroxysmal Noc. Dyspnea, No Edema, No Lt Headedness, No Other Respiratory: Cough; No Dry; Shortness of breath; No SOB with excertion, No Wheezing, No Hemoptysis, No Pleuritic Pain; Sputum; No Other Gastrointestinal: No Nausea, No Vomiting, No Abdominal Pain, No Diarrhea, No Constipation, No Melena, No Hematochezia, No Other Genitourinary: Dysuria, Frequency, Incontinence; No Hematuria, No Retention, No Other Musculoskeletal: No other, No neck pain, No shoulder pain, No arm pain, No back pain, No hand pain, No leg pain, No foot pain Skin: No Rash, No Lesions, No Jaundice, No Bruising, No Other Objective Vitals Vital Signs Date Time Temp Pulse Resp B/P (MAP) Pulse Ox O2 Delivery O2 Flow Rate FiO2 10/30/25 08:56 147/85 10/30/25 08:51 97.8 76 16 99 97.8 10/30/25 08:19 Nasal Cannula* 2 28 Intake/Output Intake and Output 10/30/25 07:00 Intake Total 1400 ml Output Total 2400 ml Balance -1000 ml Intake Oral 950 ml IV Total 450 ml Output Urine Total 2400 ml Medications Current Medications Medications Dose Ordered Sig/Zully Route Start Time Stop Time Status Last Admin Dose Admin Acetaminophen/ Hydrocodone Bitart 1 tab Q4HP PRN PO 10/27/25 14:45 10/27/25 18:07 1 TAB Ondansetron HCl 4 mg Q4HP PRN IV 10/27/25 14:45 Docusate Sodium 100 mg BIDPRN PRN PO 10/27/25 14:45 Acetaminophen 650 mg Q6HP PRN PO 10/27/25 14:45 Morphine Sulfate 2 mg Q4HPRN PRN IV 10/27/25 15:45 Nitroglycerin 0.4 mg Q5MINP PRN SL 12/19/25 14:45 Morphine Sulfate 2 mg Q30M PRN IV 10/27/25 15:45 Cefepime HCl 50 ml @ 50 mls/hr Q12HR IV 10/27/25 22:30 10/30/25 08:57 50 MLS/HR Lactulose 15 ml DAILY PO 10/28/25 10:00 10/30/25 08:56 15 ML Azithromycin 250 ml @ 125 mls/hr DAILY IV 10/28/25 10:00 10/29/25 09:47 125 MLS/HR Fluconazole 100 ml @ 100 mls/hr DAILY IV 10/28/25 13:00 10/30/25 08:54 100 MLS/HR Gabapentin 200 mg DAILY PO 10/29/25 10:00 10/29/25 09:47 200 MG Furosemide 20 mg DAILY PO 10/29/25 10:00 10/30/25 08:56 20 MG Potassium Chloride 8 meq DAILY PO 10/29/25 10:00 10/30/25 08:57 8 MEQ Timolol Maleate 1 drop DAILY OP 10/30/25 10:00 Lactated Ringer's 1,000 ml @ 75 mls/hr [id number] IV 10/29/25 14:45 10/29/25 15:00 75 MLS/HR Laboratory Results Laboratory Tests 10/28/25 04:22 Urinalysis Test 10/27/25 13:38 Urine Color Light-yellow (Yellow) Urine Clarity Turbid (Clear) H Urine pH 5.0 (5.0-9.0) Urine Specific [place] 1.014 (1.001-1.035) Urine Protein Trace (Negative) H Urine Ketones Negative (Negative) Urine Blood 1+ /uL (Negative) H Urine Nitrite Negative (Negative) Urine Bilirubin Negative (Negative) Urine Urobilinogen Normal mg/dL (Negative) Urine Leukocyte Esterase 3+ /uL (Negative) Urine RBC 10 /hpf (0 - 4) Urine Microscopic WBC 232 /HPF (0-5) H Urine Squamous Epithelial Cells Few /hpf (<5) Urine Bacteria Few /hpf (None Seen) H Urine Hyaline Casts Many /lpf (0 - 2) Urine Mucus Few (None Seen) Urine Yeast (Budding) Occasional /hpf (None Urine Osmolality 452 mOsm/kg Urine Creatinine 67.12 mg/dL (30.0-125.0) Urine Protein/Creatinine Ratio 0.48 Urine Sodium 48 mmol/L (40-220) Urine Potassium 46 mmol/L (12-62) Urine Glucose Normal mg/dL (Normal) Urine Total Protein 32.5 mg/dL (1-14) H Microbiology Microbiology Date/Time Source Procedure Growth Status 10/27/25 16:55 Nose MRSA Screen - Final Complete 10/27/25 13:38 Urine - [place] Urine Culture - Preliminary Enterococcus faecalis Presumptive Ana María albicans Resulted 10/27/25 10:10 Blood Blood Culture - Preliminary NO GROWTH AFTER 48 HOURS OF INCUBATION. Resulted Labs and/or images reviewed: Labs reviewed by me, Image(s) reviewed by me Assessment/Plan Assessment/Plan Acute hypoxic respiratory failure: Oxygen by nasal cannula Acute bilateral community-acquired pneumonia Gram-positive versus gm neg: Continue cefepime DC azithromycin Severe Sepsis secondary to community-acquired pneumonia with lactic acidosis Hypothyroidism History of rheumatoid arthritis Hypercalcemia continue home medication calcitrol Acute metabolic encephalopathy Acute on chronic congestive heart failure: Hold Lasix Acute urinary tract infection: Urine cultures growing yeast infection: Continue IV Diflucan, urine cultures also growing E faecalis, start Zyvox 600 mg IV q.12h Blood cultures negative Cirrhosis of liver: Ammonia level normal History of fall two weeks ago: Seen in urgent care [facility] then sent to [facility] 10/23/25 to 10/27/25 diagnosed with pneumonia sent home and the granddaughter brought the patient [place] [facility] [place] History of esophageal varices Grand Daughter Mariely [phone] at bedside. The patient lives with granddaughter who is at the bedside, discussed about custodial facility placement for three IV antibiotics for three weeks and she agrees. Patient currently on Zyvox cefepime and Diflucan all IV CT head negative Time spent 75 minutes Advanced care planning time 20 minutes Patient is full code Plan discussed with: Patient My Orders Orders - GAVIOTA WRIGHT MD Procedure Category Date Status Time Lactated Ringer's PHA 10/29/25 In Process 14:45 Date of Service: Oct 30, 2025 Billing Provider: GAVIOTA WRIGHT MD Common Visit Codes: [id number] INP/OBS CARE(HIGH) AGVIOTA WRIGHT MD Oct 30, 2025 09:35
[2025-10-30] MEDS ORDERED: LINEZOLID 600MG/300ML 300 ML IV SCH (10:00)
[2025-10-30 10:30] LABS: Hematocrit 30.6 % (36.0-46.0); Hemoglobin 10.4 g/dL (12.2-16.2); Mean Corpuscular Hemoglobin 33.2 pg (28.0-32.0); Mean Corpuscular Volume 97.6 fL (80.0-100.0); Nucleated Red Blood Cells % 0.1 %
[2025-10-30] MEDS: TIMOLOL MAL 0.5% OPTH(EYE) SOL 5ML OP SCH (10:50)
[2025-10-30] MEDS: cloNIDine 0.1 mg/24hr 7 DAY PATCH TD SCH (10:51)
[2025-10-30] MEDS ORDERED: VANCOMYCIN PER PHARMACY 0 MG IV SCH (12:45)
--- NOTE | 2025-10-30 13:21 | DVHDS2 ---
Discharge Summary Date of Admission Oct 27, 2025 at 14:36 Date of Discharge: Oct 30, 2025 Admitting Diagnosis Altered mental status and confusion Wounds: None Labs/Diagnostic Data: Laboratory Results Test 10/30/25 09:40 10/28/25 04:22 10/27/25 23:30 10/27/25 22:43 White Blood Count 5.6 10^3/uL (4.4-10.8) Red Blood Count 3.14 10^6/uL (4.0-5.20) Hemoglobin 10.4 g/dL (12.2-16.2) Hematocrit 30.6 % (36.0-46.0) Mean Corpuscular Volume 97.6 fL (80.0-100.0) Mean Corpuscular Hemoglobin 33.2 pg (28.0-32.0) Mean Corpuscular Hemoglobin Concent 34.1 g/dL (32.0-36.0) Red Cell Distribution Width 14.8 % (11.8-14.3) Platelet Count 51 10^3/uL (140-450) Mean Platelet Volume 8.6 fL (6.9-10.8) Neutrophils (%) (Auto) 78.5 % (37.0-80.0) Lymphocytes (%) (Auto) 12.3 % (10.0-50.0) Monocytes (%) (Auto) 5.8 % (0.0-12.0) Eosinophils (%) (Auto) 3.1 % (0.0-7.0) Basophils (%) (Auto) 0.3 % (0.0-2.0) Neutrophils # (Auto) 4.4 10 ^3/uL (1.6-8.6) Lymphocytes # (Auto) 0.7 10 ^3/uL (0.4-5.4) Monocytes # (Auto) 0.3 10 ^3/uL (0-1.3) Eosinophils # (Auto) 0.2 10 ^3/uL (0-0.8) Basophils # (Auto) 0 10 ^3/uL (0-0.2) Nucleated Red Blood Cells 0.1 % Sodium Level 147 mmol/L (136-145) Potassium Level 4.5 mmol/L (3.5-5.1) Chloride Level 111 mmol/L (98-107) Carbon Dioxide Level 28 mmol/L (20-31) Anion Gap 8 (5-15) Blood Urea Nitrogen 27 mg/dL (9-23) Creatinine 1.12 mg/dL (0.550-1.02) Glomerular Filtration Rate Calc 49 mL/min (>90) BUN/Creatinine Ratio 24.1 (10.0-20.0) Serum Glucose 111 mg/dL (74-106) Calcium Level 12.8 mg/dL (8.7-10.4) Total Bilirubin 1.3 mg/dL (0.2-1.0) Aspartate Amino Transferase (AST) 50 U/L (13-40) Alanine Aminotransferase (ALT) 20 U/L (7-40) Alkaline Phosphatase 156 U/L (46-116) Total Protein 6.4 g/dL (5.7-8.2) Albumin 2.6 g/dL (3.2-4.8) Influenza Type A Antigen Negative (Negative) Influenza Type B Antigen Negative (Negative) SARS-CoV-2 Antigen (Rapid) Negative (NEGATIVE) Prothrombin Time 13.2 sec (9.3-11.8) Prothrombin Time INR 1.28 (0.9-1.15) Vitamin D 25-Hydroxy 45.5 ng/mL (30.0-100) Test 10/27/25 14:44 10/27/25 13:40 10/27/25 13:38 10/27/25 10:00 Lactic Acid Level 2.6 mmol/L (0.4-2.0) Ammonia 12 umol/L (11-32) Urine Color Light-yellow (Yellow) Urine Clarity Turbid (Clear) Urine pH 5.0 (5.0-9.0) Urine Specific [place] 1.014 (1.001-1.035) Urine Protein Trace (Negative) Urine Ketones Negative (Negative) Urine Blood 1+ /uL (Negative) Urine Nitrite Negative (Negative) Urine Bilirubin Negative (Negative) Urine Urobilinogen Normal mg/dL (Negative) Urine Leukocyte Esterase 3+ /uL (Negative) Urine RBC 10 /hpf (0 - 4) Urine Microscopic WBC 232 /HPF (0-5) Urine Squamous Epithelial Cells Few /hpf (<5) Urine Bacteria Few /hpf (None Seen) Urine Hyaline Casts Many /lpf (0 - 2) Urine Mucus Few (None Seen) Urine Yeast (Budding) Occasional /hpf (None Urine Osmolality 452 mOsm/kg Urine Creatinine 67.12 mg/dL (30.0-125.0) Urine Protein/Creatinine Ratio 0.48 Urine Sodium 48 mmol/L (40-220) Urine Potassium 46 mmol/L (12-62) Urine Glucose Normal mg/dL (Normal) Urine Total Protein 32.5 mg/dL (1-14) Platelet Estimate Decreased Phosphorus Level 3.1 mg/dL (2.4-5.1) Magnesium Level 2.1 mg/dL (1.6-2.6) Direct Bilirubin 0.7 mg/dL (<0.3) Creatine Kinase 20 U/L (34-145) Lipase 17 U/L (12-53) Parathyroid Hormone (Intact) < 6.3 pg/mL (18.4-80.1) Other Laboratory Tests 10/30/25 09:40 10/28/25 04:22 Brief Hx & Hospital Course: 80-year-old female with a history of congestive heart failure cirrhosis of liver hypothyroidism rheumatoid arthritis burden for the family for altered mental status and confusion found to have community-acquired pneumonia treated with the cefepime and azithromycin. Azithromycin discontinued on cefepime we will continue. Patient has a acute urinary tract infection found to have yeast started on Diflucan also urine growing E faecalis started on vancomycin IV which he will get for 2-3 weeks ammonia level is normal patient has cirrhosis of liver patient fell two weeks ago seen in urgent care in [facility] then transferred to [facility] diagnosed with a pneumonia and went home and the granddaughter brought her back to the [facility]. The patient has a history of esophageal varices. Patient to be discharged to half-way facility to receive cefepime 1 g IV q.12h for three weeks, Diflucan 200 mg IV daily for three weeks, vancomycin 1 g IV daily for three weeks for pneumonia and UTI respectively. The granddaughter Mariely at the bedside and agrees with the plan. Consults/Reason for consult None Operations or Procedures CT head Condition at Discharge: Fair Final Diagnosis/Problems List Acute hypoxic respiratory failure: Oxygen by nasal cannula Acute bilateral community-acquired pneumonia Gram-positive versus gm neg: Continue cefepime DC azithromycin Severe Sepsis secondary to community-acquired pneumonia with lactic acidosis Hypothyroidism History of rheumatoid arthritis Hypercalcemia continue home medication calcitrol Acute metabolic encephalopathy Acute on chronic congestive heart failure: Hold Lasix Acute urinary tract infection: Urine cultures growing yeast infection: Continue IV Diflucan, urine cultures also growing E faecalis, start Zyvox 600 mg IV q.12h Blood cultures negative Cirrhosis of liver: Ammonia level normal History of fall two weeks ago: Seen in urgent care [facility] then sent to [facility] 10/23/25 to 10/27/25 diagnosed with pneumonia sent home and the granddaughter brought the patient back same day to the [facility] for shortness of breath History of esophageal varices Discharge Disposition: Jail Facility Discharge Instruct/Medications Diet: Cardiac 2g Na,low cholest Activity: Bed rest Follow Up/Referral: Follow up with the shelter Cefepime, vancomycin, Diflucan IV Medications: see list Scheduled Azithromycin (Azithromycin), 1 TAB PO DAILY B-Complex Vitamins (B Complex), 1 OR DAILY, (Reported) Cephalexin Monohydrate (Cephalexin), 1 CAP PO TID Clonidine Hcl (Pyetttuj-Uvk-1 Patch), 0.1 MG TD QWEEKLY, (Reported) Folic Acid (Folic Acid), 1 MG PO DAILY, (Reported) Furosemide (Furosemide), 40 MG PO DAILY, (Reported) Hydroxychloroquine Sulfate (Plaquenil), 1 TAB PO BID, (Reported) Lactulose (Lactulose), 10 GM PO TID Levothyroxine Sodium (Levothyroxine Sodium), 100 MCG PO QAM, (Reported) Linagliptin Base (Tradjenta), 5 MG PO DAILY@BREAKFAST, (Reported) Linagliptin Base (Tradjenta), 5 MG PO DAILY, (Reported) Naproxen (Naproxen), 375 MG PO DAILYPRN, (Reported) Pantoprazole Sodium (Pantoprazole Sodium), 40 MG IV DAILY, (Reported) Potassium Chloride (Klor-Con M10), 1 TAB PO DAILY, (Reported) Pregabalin (Lyrica), 150 MG PO HS, (Reported) Timolol Maleate (Timolol Maleate Ophthalmi), 1 DROP EACHEYE BID, (Reported) Vericiguat (Verquvo), 2.5 MG PO DAILY, (Reported) Discontinued Medications Methotrexate (Methotrexate), 6 TAB PO QWEEKLY, (Reported) Spironolactone (Spironolactone), 50 MG PO DAILY, (Reported) Sucralfate (Carafate), 1 GM PO BID, (Reported) Discharge Statement: "Patient was advised to return to the ER or call 911 if any headaches, dizziness, shortness of breath, chest pain, abdominal pain, bleeding, fevers, or worsening of medical condition. Patient was counseled about treatment plan, medications, possible side effects, patientverbalized understanding. All questions were answered to the best of my ability. This discharge took greater then 30 minutes in planning, reviewing documentation, counseling the patient, and discussing with other team members." ASSESSMENT ASSESSMENT Hospital Course Marginally improved Assessment Acute hypoxic respiratory failure: Oxygen by nasal cannula Acute bilateral community-acquired pneumonia Gram-positive versus gm neg: Continue cefepime DC azithromycin Severe Sepsis secondary to community-acquired pneumonia with lactic acidosis Hypothyroidism History of rheumatoid arthritis Hypercalcemia continue home medication calcitrol Acute metabolic encephalopathy Acute on chronic congestive heart failure: Hold Lasix Acute urinary tract infection: Urine cultures growing yeast infection: Continue IV Diflucan, urine cultures also growing E faecalis, start Zyvox 600 mg IV q.12h Blood cultures negative Cirrhosis of liver: Ammonia level normal History of fall two weeks ago: Seen in urgent care [facility] then sent to [facility] 10/23/25 to 10/27/25 diagnosed with pneumonia sent home and the granddaughter brought the patient back same day to the [facility] for shortness of breath History of esophageal varices Date of Service: Oct 30, 2025 Billing Provider: GAVIOTA WRIGHT MD Common Visit Codes: [id number] DISCH DAY >30min GAVIOTA WRIGHT MD Oct 30, 2025 13:21
[2025-10-30 14:14] LABS: INR 1.38 (0.9-1.15); Partial Thromboplastin Time 33.9 SEC (24.5-34.5); Prothrombin Time 14.2 sec (9.3-11.8)
[2025-10-30] MEDS: VANCOMYCIN 1GM/250ML IV ONE (14:59)
[2025-10-30] MEDS: LIDOCAINE 1% (LOCAL ANESTH.) PF 5ml SDV ID ONE (15:44)
[2025-10-30] MEDS: SODIUM CHLOR 0.9% PF (SALINE LOCK) 10ML VIAL/SYR IV SCH (22:30)
[2025-10-31] VITALS (9 sets, daily range): BP systolic 116–156; BP diastolic 59–85; PULSE 67–86; RESP 16–18; TEMP 36.4; O2SAT 95–99
--- NOTE | 2025-10-31 08:44 | DVHPN2 ---
Reviewed: Care Plan, H&P, Labs, Medications, Previous Orders, Radiology Changes from previous H/P or p: No Changes Eyes: No Pain, No Vision change, No Conjunctivae inflammation, No Eyelid inflammation, No Other, No Redness ENT: No Ear pain, No Ear discharge, No Nose pain, No Nose discharge, No Nose congestion, No Mouth pain, No Mouth swelling, No Throat pain, No Throat swelling, No Other Cardiovascular: No Chest Pain, No Palpitations, No Orthopnea, No Paroxysmal Noc. Dyspnea, No Edema, No Lt Headedness, No Other Respiratory: Cough; No Dry; Shortness of breath; No SOB with excertion, No Wheezing, No Hemoptysis, No Pleuritic Pain; Sputum; No Other Gastrointestinal: No Nausea, No Vomiting, No Abdominal Pain, No Diarrhea, No Constipation, No Melena, No Hematochezia, No Other Genitourinary: Dysuria, Frequency, Incontinence; No Hematuria, No Retention, No Other Musculoskeletal: No other, No neck pain, No shoulder pain, No arm pain, No back pain, No hand pain, No leg pain, No foot pain Skin: No Rash, No Lesions, No Jaundice, No Bruising, No Other Objective Vitals Vital Signs Date Time Temp Pulse Resp B/P (MAP) Pulse Ox O2 Delivery O2 Flow Rate FiO2 10/31/25 05:00 97.6 68 18 131/59 (83) 99 97.6 10/30/25 20:00 Nasal Cannula* 2 28 Intake/Output Intake and Output 10/31/25 07:00 Intake Total 2900 ml Output Total 900 ml Balance 2000 ml Intake Oral 50 ml IV Total 2850 ml Output Urine Total 900 ml # Bowel Movements 3 Medications Current Medications Medications Dose Ordered Sig/Zully Route Start Time Stop Time Status Last Admin Dose Admin Ondansetron HCl 4 mg Q4HP PRN IV 10/27/25 14:45 Docusate Sodium 100 mg BIDPRN PRN PO 10/27/25 14:45 Acetaminophen 650 mg Q6HP PRN PO 10/27/25 14:45 Morphine Sulfate 2 mg Q4HPRN PRN IV 10/27/25 15:45 Cancel Nitroglycerin 0.4 mg Q5MINP PRN SL 10/27/25 14:45 Morphine Sulfate 2 mg Q30M PRN IV 10/27/25 15:45 Cancel Cefepime HCl 50 ml @ 50 mls/hr Q12HR IV 10/27/25 22:30 10/30/25 21:43 50 MLS/HR Lactulose 15 ml DAILY PO 10/28/25 10:00 10/30/25 08:56 15 ML Fluconazole 100 ml @ 100 mls/hr DAILY IV 10/28/25 13:00 10/30/25 08:54 100 MLS/HR Furosemide 20 mg DAILY PO 10/29/25 10:00 10/30/25 08:56 20 MG Potassium Chloride 8 meq DAILY PO 10/29/25 10:00 10/30/25 08:57 8 MEQ Timolol Maleate 1 drop DAILY OP 10/30/25 10:00 10/30/25 10:50 1 DROP Lactated Ringer's 1,000 ml @ 75 mls/hr [id number] IV 10/29/25 14:45 10/31/25 05:19 75 MLS/HR Clonidine HCl 0.1 mg Q7D TD 10/30/25 10:30 10/30/25 10:51 0.1 MG Vancomycin HCl 0 ml @ 0 mls/hr PER PHARMACY IV 10/30/25 12:45 Sodium Chloride 10 ml QSHIFT@10,22 IV 10/30/25 22:00 10/30/25 22:30 10 ML Laboratory Results Laboratory Tests 10/28/25 04:22 10/30/25 09:40 10/31/25 07:23 Coagulation Test 10/30/25 13:14 Prothrombin Time 14.2 sec (9.3-11.8) H Prothrombin Time INR 1.38 (0.9-1.15) H Activated Partial Thromboplast Time 33.9 SEC (24.5-34.5) Urinalysis Test 10/27/25 13:38 Urine Color Light-yellow (Yellow) Urine Clarity Turbid (Clear) H Urine pH 5.0 (5.0-9.0) Urine Specific [place] 1.014 (1.001-1.035) Urine Protein Trace (Negative) H Urine Ketones Negative (Negative) Urine Blood 1+ /uL (Negative) H Urine Nitrite Negative (Negative) Urine Bilirubin Negative (Negative) Urine Urobilinogen Normal mg/dL (Negative) Urine Leukocyte Esterase 3+ /uL (Negative) Urine RBC 10 /hpf (0 - 4) Urine Microscopic WBC 232 /HPF (0-5) H Urine Squamous Epithelial Cells Few /hpf (<5) Urine Bacteria Few /hpf (None Seen) H Urine Hyaline Casts Many /lpf (0 - 2) Urine Mucus Few (None Seen) Urine Yeast (Budding) Occasional /hpf (None Urine Osmolality 452 mOsm/kg Urine Creatinine 67.12 mg/dL (30.0-125.0) Urine Protein/Creatinine Ratio 0.48 Urine Sodium 48 mmol/L (40-220) Urine Potassium 46 mmol/L (12-62) Urine Glucose Normal mg/dL (Normal) Urine Total Protein 32.5 mg/dL (1-14) H Microbiology Microbiology Date/Time Source Procedure Growth Status 10/27/25 16:55 Nose MRSA Screen - Final Complete 10/27/25 13:38 Urine - [place] Urine Culture - Final Enterococcus faecalis Presumptive Ana María albicans Complete 10/27/25 10:10 Blood Blood Culture - Preliminary NO GROWTH AFTER 72 HOURS OF INCUBATION. Resulted Labs and/or images reviewed: Labs reviewed by me, Image(s) reviewed by me Assessment/Plan Assessment/Plan Acute hypoxic respiratory failure: Oxygen by nasal cannula Acute bilateral community-acquired pneumonia Gram-positive versus gm neg: Continue cefepime DC azithromycin Severe Sepsis secondary to community-acquired pneumonia with lactic acidosis Hypothyroidism History of rheumatoid arthritis Hypercalcemia continue home medication calcitrol Acute metabolic encephalopathy Acute on chronic congestive heart failure: Hold Lasix Acute urinary tract infection: Urine cultures growing yeast infection: Continue IV Diflucan, urine cultures also growing E faecalis, start Zyvox 600 mg IV q.12h Blood cultures negative Cirrhosis of liver: Ammonia level normal History of fall two weeks ago: Seen in urgent care [facility] sent to [facility] 10/23/25 to 10/27/25 diagnosed with pneumonia sent home and the granddaughter brought the patient back same day to the [facility] for shortness of breath History of esophageal varices Grand Daughter Mariely [phone] at bedside. The patient lives with granddaughter who is at the bedside, discussed [facility] for three IV antibiotics for three weeks and she agrees. Patient currently on Zyvox cefepime and Diflucan all IV CT head negative The patient is drowsy, granddaughter Mariely at bedside DC [place] morphine and gabapentin Time spent 55 minutes Advanced care planning time 20 minutes Patient is full code Plan discussed with: Patient My Orders Orders - GAVIOTA WRIGHT MD Procedure Category Date Status Time Insert Midline ORDERS 10/30/25 Transmitted 09:45 Clonidine 0.1mg/24hr PHA 10/30/25 In Process 7day Patc (Catapres 10:30 Vancomycin Per [facility] 10/30/25 In Process Pharmacy [facility] 10:19 * Picc Line Consult CONS 10/30/25 Transmitted 11:30 Vancomycin Per [facility] 10/30/25 In Process Pharmacy 12:45 Vancomycin,Random LAB 10/31/25 In Process 04:00 Discharge DISCHARGE 10/30/25 Transmitted 13:16 * Obstetrical Tech CONS 10/30/25 Transmitted Consult Nursing Protocol Picc [facility] 10/30/25 In Process 15:09 Change Dressing Prn [facility] 10/30/25 In Process 15:09 Sodium Chloride Lock [facility] 10/30/25 In Process (Saline Lock Ns) 22:00 Do Not Use Picc For [facility] 10/30/25 In Process Blood Cult 15:09 May Draw Blood From [facility] 10/30/25 In Process Picc 15:09 Ok To Use Picc [facility] 10/30/25 In Process 15:09 Change Picc Dressing [facility] 10/30/25 In Process Q7 Days 15:09 Date of Service: Oct 31, 2025 Billing Provider: GAVIOTA WRIGHT MD Common Visit Codes: [id number] INP/OBS CARE(HIGH) GAVIOTA WRIGHT MD Oct 31, 2025 08:44
[2025-10-31] MEDS: CEFEPIME 2GM/50ML NS 50 ML IV SCH (10:00)
[2025-10-31] MEDS: VANCOMYCIN 750MG KIT 100 ML IV SCH (13:34)
[2025-11-01 01:00] VITALS: BP 129/60; PULSE 86; RESP 16; TEMP 97.4; O2SAT 94
[2025-11-01 05:00] VITALS: BP 133/82; PULSE 92; RESP 16; TEMP 97.8; O2SAT 95
[2025-11-01 08:00] VITALS: PULSE 102
--- NOTE | 2025-11-01 08:30 | DVHPN2 ---
Reviewed: Care Plan, H&P, Labs, Medications, Previous Orders, Radiology Changes from previous H/P or p: No Changes Eyes: No Pain, No Vision change, No Conjunctivae inflammation, No Eyelid inflammation, No Other, No Redness ENT: No Ear pain, No Ear discharge, No Nose pain, No Nose discharge, No Nose congestion, No Mouth pain, No Mouth swelling, No Throat pain, No Throat swelling, No Other Cardiovascular: No Chest Pain, No Palpitations, No Orthopnea, No Paroxysmal Noc. Dyspnea, No Edema, No Lt Headedness, No Other Respiratory: Cough; No Dry; Shortness of breath; No SOB with excertion, No Wheezing, No Hemoptysis, No Pleuritic Pain; Sputum; No Other Gastrointestinal: No Nausea, No Vomiting, No Abdominal Pain, No Diarrhea, No Constipation, No Melena, No Hematochezia, No Other Genitourinary: Dysuria, Frequency, Incontinence; No Hematuria, No Retention, No Other Musculoskeletal: No other, No neck pain, No shoulder pain, No arm pain, No back pain, No hand pain, No leg pain, No foot pain Skin: No Rash, No Lesions, No Jaundice, No Bruising, No Other Objective Vitals Vital Signs Date Time Temp Pulse Resp B/P (MAP) Pulse Ox O2 Delivery O2 Flow Rate FiO2 11/01/25 07:58 Nasal Cannula* 3 32 11/01/25 05:00 97.8 92 16 133/82 (99) 95 97.8 Intake/Output Intake and Output 11/01/25 07:00 Intake Total 1220 ml Output Total 740 ml Balance 480 ml Intake Oral 220 ml IV Total 1000 ml Output Urine Total 740 ml # Bowel Movements 1 Medications Current Medications Medications Dose Ordered Sig/Zully Route Start Time Stop Time Status Last Admin Dose Admin Ondansetron HCl 4 mg Q4HP PRN IV 10/27/25 14:45 Docusate Sodium 100 mg BIDPRN PRN PO 10/27/25 14:45 Acetaminophen 650 mg Q6HP PRN PO 10/27/25 14:45 Morphine Sulfate 2 mg Q4HPRN PRN IV 10/27/25 15:45 Cancel Nitroglycerin 0.4 mg Q5MINP PRN SL 10/27/25 14:45 Morphine Sulfate 2 mg Q30M PRN IV 10/27/25 15:45 Cancel Lactulose 15 ml DAILY PO 10/28/25 10:00 10/31/25 08:44 15 ML Fluconazole 100 ml @ 100 mls/hr DAILY IV 10/28/25 13:00 10/31/25 08:45 100 MLS/HR Furosemide 20 mg DAILY PO 10/29/25 10:00 10/30/25 08:56 20 MG Potassium Chloride 8 meq DAILY PO 10/29/25 10:00 10/30/25 08:57 8 MEQ Timolol Maleate 1 drop DAILY OP 10/30/25 10:00 10/31/25 08:45 1 DROP Lactated Ringer's 1,000 ml @ 75 mls/hr [id number] IV 10/29/25 14:45 10/31/25 05:19 75 MLS/HR Clonidine HCl 0.1 mg Q7D TD 10/30/25 10:30 10/30/25 10:51 0.1 MG Vancomycin HCl 0 ml @ 0 mls/hr PER PHARMACY IV 10/30/25 12:45 Sodium Chloride 10 ml QSHIFT@10,22 IV 10/30/25 22:00 10/31/25 21:58 10 ML Cefepime HCl 50 ml @ 12.5 mls/hr Q12HR IV 10/31/25 10:00 10/31/25 21:56 12.5 MLS/HR Vancomycin HCl 100 ml @ 100 mls/hr DAILY@1400 IV 10/31/25 14:00 10/31/25 13:34 100 MLS/HR Laboratory Results Laboratory Tests 10/28/25 04:22 10/30/25 09:40 11/01/25 05:34 Urinalysis Test 10/27/25 13:38 Urine Color Light-yellow (Yellow) Urine Clarity Turbid (Clear) H Urine pH 5.0 (5.0-9.0) Urine Specific [facility] 1.014 (1.001-1.035) Urine Protein Trace (Negative) H Urine Ketones Negative (Negative) Urine Blood 1+ /uL (Negative) H Urine Nitrite Negative (Negative) Urine Bilirubin Negative (Negative) Urine Urobilinogen Normal mg/dL (Negative) Urine Leukocyte Esterase 3+ /uL (Negative) Urine RBC 10 /hpf (0 - 4) Urine Microscopic WBC 232 /HPF (0-5) H Urine Squamous Epithelial Cells Few /hpf (<5) Urine Bacteria Few /hpf (None Seen) H Urine Hyaline Casts Many /lpf (0 - 2) Urine Mucus Few (None Seen) Urine Yeast (Budding) Occasional /hpf (None Urine Osmolality 452 mOsm/kg Urine Creatinine 67.12 mg/dL (30.0-125.0) Urine Protein/Creatinine Ratio 0.48 Urine Sodium 48 mmol/L (40-220) Urine Potassium 46 mmol/L (12-62) Urine Glucose Normal mg/dL (Normal) Urine Total Protein 32.5 mg/dL (1-14) H Microbiology Microbiology Date/Time Source Procedure Growth Status 10/27/25 16:55 Nose MRSA Screen - Final Complete 10/27/25 13:38 Urine - [place] Urine Culture - Final Enterococcus faecalis Presumptive Ana María albicans Complete 10/27/25 10:10 Blood Blood Culture - Preliminary NO GROWTH AFTER 72 HOURS OF INCUBATION. Resulted Labs and/or images reviewed: Labs reviewed by me, Image(s) reviewed by me Assessment/Plan Assessment/Plan Acute hypoxic respiratory failure: Oxygen by nasal cannula Acute bilateral community-acquired pneumonia Gram-positive versus gm neg: Continue cefepime DC azithromycin Severe Sepsis secondary to community-acquired pneumonia with lactic acidosis Hypothyroidism History of rheumatoid arthritis Hypercalcemia continue home medication calcitrol Acute metabolic encephalopathy Acute on chronic congestive heart failure: Hold Lasix Acute urinary tract infection: Urine cultures growing yeast infection: Continue IV Diflucan, urine cultures also growing E faecalis, start Zyvox 600 mg IV q.12h Blood cultures negative Cirrhosis of liver: Ammonia level normal History of fall two weeks ago: Seen in urgent care [facility] sent to [facility] 10/23/25 to 10/27/25 diagnosed with pneumonia sent home and the granddaughter brought the patient back same day to the [facility] for shortness of breath History of esophageal varices Grand Daughter Mariely [phone] at bedside. The patient lives with granddaughter who is at the bedside, discussed about [facility] facility [facility] for three IV antibiotics for three weeks and she agrees. Patient currently on Zyvox cefepime and Diflucan all IV CT head negative The patient is drowsy, granddaughter Mariely at bedside DC [place] morphine and gabapentin Time spent 55 minutes Advanced care planning time 20 minutes Patient is full code Patient was discharged to [facility] on 10/31/2025 awaiting transportation. Plan discussed with: Patient My Orders Orders - GAVIOTA WRIGHT MD Procedure Category Date Status Time Vancomycin 750mg Kit PHA 10/31/25 In Process (Vancomycin Hcl) 14:00 Vancomycin,Trough LAB 11/02/25 Verified 13:00 Vancomycin Per [facility] 11/02/25 In Process Pharmacy [facility] 14:00 Creatinine LAB 11/02/25 Verified 05:00 * Shot Tube Machine Tender CONS 10/31/25 Transmitted Consult 12:12 Date of Service: Nov 01, 2025 Billing Provider: GAVIOTA WRIGHT MD Common Visit Codes: [id number] INP/OBS CARE(HIGH) GAVIOTA WRIGHT MD Nov 01, 2025 08:30
[2025-11-01 09:00] VITALS: BP 116/60; PULSE 93; RESP 16; TEMP 97.9; O2SAT 90
[2025-11-01 13:00] VITALS: BP 138/74; PULSE 93; RESP 17; TEMP 97.5; O2SAT 99
[2025-11-01] MEDS: MORPHINE SULFATE 4 MG/ML SYR/VIAL IV ONE (15:13)
[2025-11-01 17:00] VITALS: BP 123/63; PULSE 88; RESP 17; TEMP 98.2; O2SAT 96
== END 2025-11-01 17:42 | DRG 720 ==
LOC: ER 09:21 → EDBD 09:21 → OVERFLOW 14:36 → TELE-CENTR 16:25
PROVIDERS: ADMIT Family Medicine; ATTEND Family Medicine
PROC: 02HV33Z Insertion of Infusion Device into Superior Vena Cava, Percutaneous Approach (ICD-10-PCS; principal; 2025-10-30)
PROC: B548ZZA Ultrasonography of Superior Vena Cava, Guidance (ICD-10-PCS; 2025-10-30)
PROC: 05HC33Z Insertion of Infusion Device into Left Basilic Vein, Percutaneous Approach (ICD-10-PCS; 2025-10-30)
PROC: B54NZZA Ultrasonography of Left Upper Extremity Veins, Guidance (ICD-10-PCS; 2025-10-30)
DX: A41.50 Gram-negative sepsis, unspecified (principal); N17.0 Acute kidney failure with tubular necrosis; J96.01 Acute respiratory failure with hypoxia; J15.69 Pneumonia due to other Gram-negative bacteria; I50.33 Acute on chronic diastolic (congestive) heart failure; E87.20 Acidosis, unspecified; G93.41 Metabolic encephalopathy; J15.9 Unspecified bacterial pneumonia; R65.20 Severe sepsis without septic shock; N39.0 Urinary tract infection, site not specified; I11.0 Hypertensive heart disease with heart failure; E03.9 Hypothyroidism, unspecified; K74.60 Unspecified cirrhosis of liver; M06.9 Rheumatoid arthritis, unspecified; E11.9 Type 2 diabetes mellitus without complications; B37.9 Candidiasis, unspecified; Z20.822 Contact with and (suspected) exposure to COVID-19; E83.52 Hypercalcemia; Z88.0 Allergy status to penicillin
CPT/HCPCS: 36415; 36569; 70450; 71045; 76775; 76937; 80048; 80053; 80076; 80202; 81001; 82140; 82306; 82550; 82565; 82570; 83605; 83690; 83735; 83935; 83970; 84100; 84133; 84156; 84300; 85025; 85610; 85730; 87040; 87081; 87086; 87088; 87186; 87426; 87804; 93005; 97162; 97163; G0378; J0692; J1450; J7042

== ENCOUNTER 2025-11-03 21:35 | Inpatient (IN) | payer MEDICAID ==
[~2025-11-03] VITALS: Ht 149.9 cm; Wt 60.0 kg
[~2025-11-03 21:35] MED LIST changes: +HYDR-4491 PO; +LACT10SO3 PO; +MAGIC MT; -METH2.5T PO; +NYS5LQ MT; +PANT40T PO; -SPIR50TA5 PO; -SUCR1TAB31 PO; +TIMO0.5S32 EACHEYE
--- NOTE | 2025-11-03 21:49 | ED.PDOC ---
History of Present Illness HPI Comments discharge diagnosis from 10/30/25 Acute hypoxic respiratory failure: Oxygen by nasal cannula Acute bilateral community-acquired pneumonia Gram-positive versus gm neg: Continue cefepime DC azithromycin Severe Sepsis secondary to community-acquired pneumonia with lactic acidosis Hypothyroidism History of rheumatoid arthritis Hypercalcemia continue home medication calcitrol Acute metabolic encephalopathy Acute on chronic congestive heart failure: Hold Lasix Acute urinary tract infection: Urine cultures growing yeast infection: Continue IV Diflucan, urine cultures also growing E faecalis, start Zyvox 600 mg IV q.12h Blood cultures negative Cirrhosis of liver: Ammonia level normal History of fall two weeks ago: Seen in urgent care [facility] then sent to [facility] 10/23/25 to 10/27/25 diagnosed with pneumonia sent home and the granddaughter brought the patient back same day to the [facility] for shortness of breath History of esophageal varices. HPI: 80 year old female presents to the ED via EMS with a chief complaint of wellness check onset today. Per EMS, patient is from [facility], has been there since 10/30/25, after being discharged from [facility]. Patient was discharged from [facility] on 10/27/25 with a diagnosis of pneumonia, few hours after daughter brought her to [facility]. Per EMS, patient's mental status has been declining the past 2 days, more lethargic. Patient is DNR. No other symptoms or modifying factors present at this time. Initial Vitals BP: 142/54 HR: 94 RR: 18 O2 Sat: 96% on 2L Temp: 97.9 F Past Medical history: arthritis, CHF, DM, HTN, cirrhosis, hypothyroidism, Rheumatoid arthritis, Past Surgical history: Denies Medications: Lasix, Vancomycin, Cephaline Social History: Denies smoking, ETOH, and drug use. Allergies: Penicillins MADSEN: ALOC, ON ABX. AMS, ZHU CATH, DIAPER, AROUSABLE TO STERNAL RUB. OBESE. LETHARGIC, HPI: Poor Historian. Patient is already on vancomycin and cefepime REVIEW OF SYSTEMS: Review of system is limited given the patient's altered level of consciousness/altered mental status CONSTITUTIONAL: Denies acute: fever, diaphoresis, chills, generalized weakness. HEAD: Denies acute: headache, photophobia Eyes: Denies acute: Double vision, vision loss, eye pain, eye discharge. EARS: Denies acute: tinnitus, hearing loss, ear discharge, ear pain, THROAT: Denies acute: sore throat, swelling, difficulty swallowing , pain with swallowing, change in voice. NECK: Denies acute: neck pain, neck swelling, stiff neck. HEART: Denies acute : chest pain, palpitations, LUNGS: Denies acute: SOB, wheezing, cough, hemoptysis ABDOMEN: Denies acute: abdominal pain, Nausea, Vomiting, diarrhea, melena , hematemesis, hematochezia SKIN: Denies acute: rash, redness, lesions, itchiness. EXTREMITIES: Denies acute: calf pain, numbness, tingling, weakness, denies pain in extremity. Denies acute: Low back pain. Neuro: Denies acute: focal neurological deficit, motor or sensory focal neurological deficit, tremors, seizure like activity, loss of bowel or bladder function, cauda equina like symptoms. : Denies acute: dysuria, hematuria, flank pain, increase in urinary frequency. PSYCH: Denies acute: hallucination, suicidal ideation, homicidal ideation. FEMALE: Denies acute: abnormal vaginal bleeding, foul odor, unusual discharge. PHYSICAL EXAM: General: --mild------acute distress, awake and alert. Head: normocephalic, atraumatic. No raccoon's eyes, no jewell sign. Neck: supple, trachea is midline, no swelling. Eyes:, no erythema, no purulent discharge, no proptosis, no icterus. Heart: regular rate, regular rhythm, no significant murmur appreciated. Lungs: no apparent respiratory distress, No wheezing, no rhonchi, no crackles. No stridors Clear to auscultation bilaterally. Abdomen: non tender to palpation, non distended, soft, no guarding, no rebound, + bowel sounds. Obese Noted indwelling Zhu catheter and diaper. Neuro: Lethargic, responsive to sternal rub painful stimuli Skin: no petechia, no purpura, no cyanosis, non-pale, not jaundice. Lower extremities: --trace bilateral - Pitting edema no deformity, no focal swelling, no calf TTP. Face: no apparent facial droop. ED COURSE: DISCLAIMER: This medical document was created using an electronic medical record system with voice recognition software and computerized dictation system. Although this document has been carefully reviewed, there might still be some phonetic and typographical errors. Occasional wrong-word or "sound-alike" substitutions may have occurred due to the inherent limitations of voice recognition software. These areas are purely typographical due to imperfections of the software programs and do not reflect any compromise in the patient's medical care. Please read the chart carefully and recognize, using context, where these substitutions have occurred. Time Seen by MD: 21:35 Primary Care Provider: RUBINA Reviewed Notes: Medications, Allergies Allergies: Coded Allergies: Penicillins (Verified Allergy, Unknown, 12/14/24) Home Meds Active Scripts Pantoprazole Sodium Sesquihydr (Pantoprazole Sodium) 40 Mg Tab, 40 MG PO DAILY for 30 Days, #30 TAB Prov:SHARAD MATHIS 07/25/25 Nystatin (Mouth-Throat) (Mycostatin (Mouth-Throat)) 500,000 Units/5 Ml Ss, 5 ML MT QID for 30 Days, #120 ML Prov:SHARAD MATHIS 07/25/25 Timolol Maleate (Ophth) (Timolol Maleate) 0.5 % Sandra, 1 DROP EACHEYE BID for 30 Days, #60 ML Prov:SHARAD MATHIS [facility] 07/25/25 Lactulose (Lactulose) 10 Gm/15 Ml Sandra, 15 ML PO DAILY for 30 Days, #30 ML Prov:SHARAD MATHIS 07/25/25 Alum & Mag Hydrox-Simethicone (Magic Mouthwash) 80 Ml Ss, 5 ML MT QID for 30 Days, #120 ML Prov:SHARAD MATHIS 07/25/25 Azithromycin (Azithromycin) 500 Mg Tab, 1 TAB PO DAILY, #5 TAB Prov:QASIM MONROY MD 07/09/25 Cephalexin Monohydrate (Cephalexin) 500 Mg Cap, 1 CAP PO TID for 7 Days, #21 CAP Prov:QASIM MONROY MD 07/09/25 Lactulose (Lactulose) 10 Gm Brian, 10 GM PO TID for 90 Days, #90 PACK Prov:ANSON CHENG MD 05/24/25 Reported Medications Hydroxychloroquine Sulfate (PLAQUENIL) 200 Mg Tab, 1 TAB PO BID, #180 TAB 3 Refills 10/27/25 Potassium Chloride (Klor-Con M10) 10 Meq Tab, 1 TAB PO DAILY, #30 TAB 5 Refills 05/23/25 Linagliptin Base (TRADJENTA) 5 Mg Tab, 5 MG PO DAILY, TAB 05/23/25 Vericiguat (Verquvo) 2.5 Mg Tab, 2.5 MG PO DAILY, TAB 05/23/25 Furosemide (Furosemide) 40 Mg Tab, 40 MG PO DAILY for 30 Days 05/23/25 Pregabalin (Lyrica) 150 Mg Cap, 150 MG PO HS, CAP 05/23/25 Naproxen (Naproxen) 375 Mg Tab, 375 MG PO DAILYPRN, TAB 05/23/25 Pantoprazole Sodium (PANTOPRAZOLE SODIUM) 40 Mg Inj, 40 MG IV DAILY, INJ 05/23/25 B-Complex Vitamins (B Complex) Cap, 1 OR DAILY, CAP 04/07/25 Timolol Maleate (Timolol Maleate Ophthalmi) 0.5 % Sandra, 1 DROP EACHEYE BID, #5 ML 5 Refills 02/05/25 Folic Acid (Folic Acid) 1 Mg Tab, 1 MG PO DAILY, TAB 02/05/25 Clonidine Hcl (RGWPPQWK-IKL-4 PATCH) 0.1 Mg/24 Hr Ph, 0.1 MG TD QWEEKLY, PATCH 02/05/25 Levothyroxine Sodium (Levothyroxine Sodium) 100 Mcg Tab, 100 MCG PO QAM for 30 Days, MCG 02/03/25 Linagliptin Base (TRADJENTA) 5 Mg Tab, 5 MG PO DAILY@BREAKFAST, TAB 02/03/25 Information Source: Emergency Med Personnel Mode of Arrival: EMS Timing: Days Duration: Since onset Prehospital treatment: Oxygen Past Medical History PAST MEDICAL HISTORY: Arthritis, CHF, DM, HTN, Liver, Thyroid Surgical History: Denies all surgeries 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 Was a procedure done?: No EKG EKG : Pulse Rate (adult): 94 Cardiac Rhythm: NSR Differential Dx Considerations may include: DDX include CVA, TGA, cerebellar ischemia/infarct, carotid stenosis, Intracranial mass/infection/bleed, encephalopathy, electrolyte abnormality, thyroid disease, hydrocephalus, hypoglycemia, drug toxicity, cardiac arrhythmia, seizure, infection in the elderly, Hyperammonemia., kidney failure., sepsis. X-Ray, Labs, Meds, VS Vital Signs Date Time Temp Pulse Resp B/P (MAP) Pulse Ox O2 Delivery O2 Flow Rate FiO2 11/03/25 22:35 100.4 92 20 119/41 (67) 94 100.4 11/03/25 22:35 Nasal Cannula* 2 28 11/03/25 21:49 94 11/03/25 21:35 94 11/03/25 21:35 97.9 97 18 142/54 96 97.9 Lab Test 11/03/25 22:50 11/03/25 22:48 11/03/25 21:50 Range/Units Troponin I High Sensitivity 189 *H 187 *H </=34 ng/L Thyroid Stimulating Hormone (TSH) 7.08 H 0.55-4.78 uIU/mL Urine Color Light-orange Yellow Urine Clarity Turbid H Clear Urine pH 5.5 5.0-9.0 Urine Specific [place] 1.016 1.001-1.035 Urine Protein 2+ H Negative Urine Ketones 1+ H Negative Urine Blood 3+ H Negative /uL Urine Nitrite Negative Negative Urine Bilirubin Negative Negative Urine Urobilinogen Normal Negative mg/dL Urine Leukocyte Esterase 3+ Negative /uL Urine RBC 449 0 - 4 /hpf Urine Microscopic WBC 109 H 0-5 /HPF Urine Squamous Epithelial Cells Few <5 /hpf Urine Bacteria None seen None Seen /hpf Urine Hyaline Casts Many 0 - 2 /lpf Urine Mucus Few None Seen Urine Yeast (Budding) Occasional None Seen /hpf Urine Glucose Trace Normal mg/dL White Blood Count 9.6 # 4.4-10.8 10^3/uL Red Blood Count 2.96 L 4.0-5.20 10^6/uL Hemoglobin 10.0 L 12.2-16.2 g/dL Hematocrit 30.4 L 36.0-46.0 % Mean Corpuscular Volume 102.6 #H 80.0-100.0 fL Mean Corpuscular Hemoglobin 33.9 H 28.0-32.0 pg Mean Corpuscular Hemoglobin Concent 33.1 32.0-36.0 g/dL Red Cell Distribution Width 16.0 H 11.8-14.3 % Platelet Count 34 L 140-450 10^3/uL Mean Platelet Volume 8.6 6.9-10.8 fL Neutrophils (%) (Auto) 74.4 37.0-80.0 % Lymphocytes (%) (Auto) 12.9 10.0-50.0 % Monocytes (%) (Auto) 8.0 0.0-12.0 % Eosinophils (%) (Auto) 4.1 0.0-7.0 % Basophils (%) (Auto) 0.6 0.0-2.0 % Neutrophils # (Auto) 7.2 1.6-8.6 10 ^3/uL Lymphocytes # (Auto) 1.2 0.4-5.4 10 ^3/uL Monocytes # (Auto) 0.8 0-1.3 10 ^3/uL Eosinophils # (Auto) 0.4 0-0.8 10 ^3/uL Basophils # (Auto) 0.1 0-0.2 10 ^3/uL Nucleated Red Blood Cells 0.2 % Prothrombin Time 17.0 H 9.3-11.8 sec Prothrombin Time INR 1.69 H 0.9-1.15 Activated Partial Thromboplast Time 41.5 H 24.5-34.5 SEC Sodium Level 157 #H 136-145 mmol/L Potassium Level 3.8 3.5-5.1 mmol/L Chloride Level 125 #H 98-107 mmol/L Carbon Dioxide Level 23 20-31 mmol/L Anion Gap 9 5-15 Blood Urea Nitrogen 46 H 9-23 mg/dL Creatinine 2.25 #H 0.550-1.02 mg/dL Glomerular Filtration Rate Calc 21 >90 mL/min BUN/Creatinine Ratio 20.4 H 10.0-20.0 Serum Glucose 159 H 74-106 mg/dL Lactic Acid Level 2.0 0.4-2.0 mmol/L Calcium Level 13.5 *H 8.7-10.4 mg/dL Magnesium Level 2.0 1.6-2.6 mg/dL Total Bilirubin 1.6 H 0.2-1.0 mg/dL Aspartate Amino Transferase (AST) 142 H 13-40 U/L Alanine Aminotransferase (ALT) 44 H 7-40 U/L Alkaline Phosphatase 168 H 46-116 U/L Ammonia 22 11-32 umol/L B-Type Natriuretic Peptide 108.02 0-100 pg/mL Total Protein 6.3 5.7-8.2 g/dL Albumin 2.2 L 3.2-4.8 g/dL Plasma/Serum Blood Alcohol < 3.0 <10 mg/dL Microbiology Date/Time Source Procedure Growth Status 11/03/25 22:50 Blood Blood Culture - Final NO GROWTH AFTER 5 DAYS OF INCUBATION. Complete 11/03/25 22:48 Voided Urine Urine Culture - Final Presumptive Ana María albicans Complete 11/03/25 21:50 Blood Blood Culture - Final NO GROWTH AFTER 5 DAYS OF INCUBATION. Complete Time of 1ST Reevaluation: 22:05 Reevaluation 1ST: Unchanged Patient Education/Counseling: Other Family Education/Counseling: No Family Present Comments MDM: patient presented with the above HPI.---altered mental status---workup was initiated. patient was found with the above mentioned diagnosis. the following medications were ordered: please refer to order lists of meds and tests obtained by myself Dr. Dixon. Patient ED course and VS have been stabilized. Patient has been reassessed in the ED and remained in a stable condition. RADIOLOGY: I have reviewed all the radiological reports ordered by myself that were available at the time of disposition. EKG: I have reviewed the initial EKG and interpreted it in the absence of cardiology formal read. Patient has been observed in the ED adequate length of time to insure improvement/stability. Escalation of care considered: Consideration of escalation to observation or admission Sepsis protocol was initiated Patient was ADMITTED to the medicine team for further evaluation and treatment of their presentation. All the reports of any imaging studies that were ordered by myself were reviewed by myself. Departure 1 Departure Time of Disposition: 22:26 Impression: Primary Impression: Metabolic encephalopathy Additional Impressions: Altered level of consciousness Thrombocytopenia Anemia DNR (do not resuscitate) Sepsis Hypercalcemia Hypernatremia Acute renal failure Multifocal pneumonia Disposition: ADMITTED INPATIENT Admit to: Tele Condition: Guarded Discharged With: Self Critical Care Note Critical Care Time?: Yes (90 min-critical care time only) Critical care comment: Due to a high probability of clinically significant, life threatening deterioration, the patient required my highest level of preparedness to intervene emergently and I personally spent this critical care time directly and personally managing the patient. This critical care time included obtaining a history; examining the patient; pulse oximetry; ordering and review of studies; arranging urgent treatment with development of a management plan; evaluation of patient's response to treatment; frequent reassessment; and, discussions with other providers. This critical care time was performed to assess and manage the high probability of imminent, life-threatening deterioration that could result in multi-organ failure. It was exclusive of separately billable procedures and treating other patients and teaching time. Please see my other sections and the rest of the note for further information on patient assessment and treatment. I personally scribed for MARIAA DIXON DO ([email or web address]) on 11/03/25 at 21:49. Electronically submitted by Kiana Tineo ([email or web address]). I personally scribed for MARIAA DIXON DO ([email or web address]) on 11/03/25 at 21:57. Electronically submitted by Kiana Tineo ([email or web address]). MARIAA DIXON DO Nov 03, 2025 21:49
--- NOTE | 2025-11-03 22:10 | ECG ---
[facility] Test Date: 2025-11-03 Test Time: 21:32:57 Pat Name: DANIELA MADSEN Department: [facility] ED Patient ID: [facility]-[id number] Room: 0233T Gender: F Chief Yeoman: EMI : 1945 Requested By: MARIAA DIXON Order Number: [id number] Reading MD: Dawson Priest Measurements Intervals [place] Rate: 94 P: 0 AL: 141 QRS: -56 QRSD: 103 T: 129 QT: 350 QTc: 438 Interpretive Statements Sinus rhythm Left anterior fascicular block Consider anterior infarct Repol abnrm suggests ischemia, lateral leads Electronically Signed On 11-09-2025 17:24:29 PST by Dawson Priest Please click the below link to view image of tracing.
[2025-11-03 22:23] LABS: Hemoglobin 10.0 g/dL (12.2-16.2)
[2025-11-03 22:25] LABS: Hematocrit 30.4 % (36.0-46.0); Mean Corpuscular Hemoglobin 33.9 pg (28.0-32.0); Mean Corpuscular Volume 102.6 fL (80.0-100.0); Nucleated Red Blood Cells % 0.2 %
[2025-11-03 22:56] LABS: Anion Gap 9 (5-15); BUN/Creatinine Ratio 20.4 (10.0-20.0); Carbon Dioxide 23 mmol/L (20-31); Magnesium 2.0 mg/dL (1.6-2.6); Potassium 3.8 mmol/L (3.5-5.1); Total Protein 6.3 g/dL (5.7-8.2)
[2025-11-03] MEDS: CEFEPIME 1GM/50ML 50 ML IV ONE (23:00)
[2025-11-03 23:01] LABS: Sodium 157 mmol/L (136-145)
[2025-11-03 23:02] LABS: Alanine Aminotransferase 44 U/L (7-40); Albumin 2.2 g/dL (3.2-4.8); Alkaline Phosphatase 168 U/L (46-116); Bilirubin, Total 1.6 mg/dL (0.2-1.0); Blood Urea Nitrogen 46 mg/dL (9-23); Chloride 125 mmol/L (98-107); Glucose 159 mg/dL (74-106)
[2025-11-03 23:04] LABS: Calcium 13.5 mg/dL (8.7-10.4)
[2025-11-03] MEDS ORDERED: HYDROcodone-ACET 5/325MG TAB PO PRN (23:15)
[2025-11-03] MEDS ORDERED: VANCOMYCIN PER PHARMACY 0 MG IV SCH (23:15)
[2025-11-03] MEDS ORDERED: IBUPROFEN 400 MG TAB PO PRN (23:15)
[2025-11-03] MEDS ORDERED: DOCUSATE SOD 100 MG CAP PO PRN (23:15)
[2025-11-03] MEDS ORDERED: ONDANSETRON HCL 4 MG/2 ML VIAL IV PRN (23:15)
[2025-11-03 23:24] LABS: INR 1.69 (0.9-1.15); Partial Thromboplastin Time 41.5 SEC (24.5-34.5); Prothrombin Time 17.0 sec (9.3-11.8)
[2025-11-03 23:28] LABS: Urine Budding Yeast OCCASIONAL /hpf (None Seen); Urine Protein, UAD 2+ (Negative)
[2025-11-03] MEDS: SODIUM CHLORIDE 0.9% 1,000 ML IV ONE (23:30)
[2025-11-03] MEDS: VANCOMYCIN 1GM/250ML KIT 250 ML IV ONE (23:49)
--- NOTE | 2025-11-03 23:55 | DVHHP2 ---
History of Present Illness Reason for Visit: Metabolic encephalopathy History of Present Illness The patient is a 80-year-old female DNR with past medical history of arthritis, CHF, liver disease, hypertension, diabetes mellitus, and thyroid disease who presented to [facility] ED for evaluation of altered level of c onsciousness. As reported by EMS, patient is from [facility] since 10/30/25, after being discharged from [facility]. Patient was discharged from [facility] on 10/27/25 with diagnosis of pneumonia, few hours after daughter brought her to [facility] ED. Patient was seen and evaluated in the ED, laboratory data shows WBC 9.6, hemoglobin 10.0, hematocrit 30.4, platelets 90289, sodium 157, potassium 3.8, BUN 46, creatinine 2.25, GFR 21, glucose 159, calcium 13.5, total bilirubin 1.6, AST 142, ALT 44, alkaline phos 168, BNP 108.02, ammonia 22, lactic acid 2.0, albumin 2.2. Please see medication orders section in the computer. On my assessment, patient denies altered, no diaphoresis, currently on oxygen, no diarrhea, nausea, vomiting, fever no chills. Patient was admitted for further evaluation and medical management. Past Medical History Arthritis, CHF, DM, HTN, Liver disease, Thyroid Past Surgical History Denies all surgeries Family History Reviewed, noncontributory to the management of this case. Past Social History The patient lives at home, denies smoking, alcohol or illicit drugs abuse. Review of Systems Constitutional: Yes: Weakness; No: Fever, Chills, Sweats, Malaise, Other Eyes: No: Pain, Vision change, Conjunctivae inflammation, Eyelid inflammation, Other, Redness ENT: No: Ear pain, Ear discharge, Nose pain, Nose discharge, Nose congestion, Mouth pain, Mouth swelling, Throat pain, Throat swelling, Other Respiratory: Shortness of breath; No: Cough, Dry, SOB with excertion, Wheezing, Hemoptysis, Pleuritic Pain, Sputum, Wheezing, Other Cardiovascular: No: Chest Pain, Palpitations, Orthopnea, Paroxysmal Noc. Dyspnea, Edema, Lt Headedness, Other Gastrointestinal: No: Nausea, Vomiting, Abdominal Pain, Diarrhea, Constipation, Melena, Hematochezia, Other Genitourinary: No Dysuria, No Frequency, No Incontinence, No Hematuria, No Retention, No Other Musculoskeletal: No: other, neck pain, shoulder pain, arm pain, back pain, hand pain, leg pain, foot pain Skin: No: Rash, Lesions, Jaundice, Bruising, Other Neurological: Other (Altered level of consciousness); No: Weakness, Numbness, Incoordination, Change in speech, Confusion, Seizures Allergies: Coded Allergies: Penicillins (Verified Allergy, Unknown, 12/14/24) Medications Current Medications Medications Dose Ordered Sig/Zully Route Start Time Stop Time Status Last Admin Dose Admin Vancomycin HCl 0 ml @ 0 mls/hr PER PHARMACY IV 11/03/25 23:15 UNV Folic Acid 1 mg DAILY PO 11/04/25 10:00 Levothyroxine Sodium 100 mcg QAM@0600 PO 11/04/25 06:00 Spironolactone 25 mg DAILY PO 11/04/25 10:00 Lactulose 30 ml BID PO 11/04/25 10:00 Sodium Chloride 10 ml Q8HR IV 11/04/25 06:00 Acetaminophen/ Hydrocodone Bitart 1 tab Q4HP PRN PO 11/03/25 23:15 Ondansetron HCl 4 mg Q4HP PRN IV 11/03/25 23:15 Docusate Sodium 100 mg BIDPRN PRN PO 11/03/25 23:15 Ibuprofen 400 mg Q6HP PRN PO 11/03/25 23:15 Exam Vital Signs Vital Signs Date Time Temp Pulse Resp B/P (MAP) Pulse Ox O2 Delivery O2 Flow Rate FiO2 11/03/25 22:35 100.4 92 20 119/41 (67) 94 100.4 11/03/25 22:35 Nasal Cannula* 2 28 General Appearance: Alert, Cooperative, No acute distress, Other (Oriented times 0) HEENT: Atraumatic, PERRLA, EOMI, Mucous membr. moist/pink Respiratory: Normal air movement Cardiovascular: Regular rate, Normal S1, Normal S2, No murmurs Abdominal: Normal bowel sounds, Soft, No tenderness, No hepatospenomegaly, No masses Extremities: No clubbing, No cyanosis, No edema, Normal pulses, No tend erness/swelling Skin: No rashes, No significant lesion Neuro: Normal speech, Normal tone, Sensation intact, Cranial nerves 3-12 NL, Reflexes 2+, Other (Generalized weakness) Psych/Mental Status: Mood NL, Other (Altered mental status) Labs/Xrays Labs Test 11/03/25 22:50 11/03/25 22:48 11/03/25 21:50 Range/Units Troponin I High Sensitivity 189 *H </=34 ng/L Urine Color Light-orange Yellow Urine Clarity Turbid H Clear Urine pH 5.5 5.0-9.0 Urine Specific [place] 1.016 1.001-1.035 Urine Protein 2+ H Negative Urine Ketones 1+ H Negative Urine Blood 3+ H Negative /uL Urine Nitrite Negative Negative Urine Bilirubin Negative Negative Urine Urobilinogen Normal Negative mg/dL Urine Leukocyte Esterase 3+ Negative /uL Urine RBC 449 0 - 4 /hpf Urine Microscopic WBC 109 H 0-5 /HPF Urine Squamous Epithelial Cells Few <5 /hpf Urine Bacteria None seen None Seen /hpf Urine Hyaline Casts Many 0 - 2 /lpf Urine Mucus Few None Seen Urine Yeast (Budding) Occasional None Seen /hpf Urine Glucose Trace Normal mg/dL White Blood Count 9.6 # 4.4-10.8 10^3/uL Red Blood Count 2.96 L 4.0-5.20 10^6/uL Hemoglobin 10.0 L 12.2-16.2 g/dL Hematocrit 30.4 L 36.0-46.0 % Mean Corpuscular Volume 102.6 #H 80.0-100.0 fL Mean Corpuscular Hemoglobin 33.9 H 28.0-32.0 pg Mean Corpuscular Hemoglobin Concent 33.1 32.0-36.0 g/dL Red Cell Distribution Width 16.0 H 11.8-14.3 % Platelet Count 34 L 140-450 10^3/uL Mean Platelet Volume 8.6 6.9-10.8 fL Neutrophils (%) (Auto) 74.4 37.0-80.0 % Lymphocytes (%) (Auto) 12.9 10.0-50.0 % Monocytes (%) (Auto) 8.0 0.0-12.0 % Eosinophils (%) (Auto) 4.1 0.0-7.0 % Basophils (%) (Auto) 0.6 0.0-2.0 % Neutrophils # (Auto) 7.2 1.6-8.6 10 ^3/uL Lymphocytes # (Auto) 1.2 0.4-5.4 10 ^3/uL Monocytes # (Auto) 0.8 0-1.3 10 ^3/uL Eosinophils # (Auto) 0.4 0-0.8 10 ^3/uL Basophils # (Auto) 0.1 0-0.2 10 ^3/uL Nucleated Red Blood Cells 0.2 % Prothrombin Time 17.0 H 9.3-11.8 sec Prothrombin Time INR 1.69 H 0.9-1.15 Activated Partial Thromboplast Time 41.5 H 24.5-34.5 SEC Sodium Level 157 #H 136-145 mmol/L Potassium Level 3.8 3.5-5.1 mmol/L Chloride Level 125 #H 98-107 mmol/L Carbon Dioxide Level 23 20-31 mmol/L Anion Gap 9 5-15 Blood Urea Nitrogen 46 H 9-23 mg/dL Creatinine 2.25 #H 0.550-1.02 mg/dL Glomerular Filtration Rate Calc 21 >90 mL/min BUN/Creatinine Ratio 20.4 H 10.0-20.0 Serum Glucose 159 H 74-106 mg/dL Lactic Acid Level 2.0 0.4-2.0 mmol/L Calcium Level 13.5 *H 8.7-10.4 mg/dL Magnesium Level 2.0 1.6-2.6 mg/dL Total Bilirubin 1.6 H 0.2-1.0 mg/dL Aspartate Amino Transferase (AST) 142 H 13-40 U/L Alanine Aminotransferase (ALT) 44 H 7-40 U/L Alkaline Phosphatase 168 H 46-116 U/L Ammonia 22 11-32 umol/L B-Type Natriuretic Peptide 108.02 0-100 pg/mL Total Protein 6.3 5.7-8.2 g/dL Albumin 2.2 L 3.2-4.8 g/dL Plasma/Serum Blood Alcohol < 3.0 <10 mg/dL Head CT results pending SEPSIS Sepsis Screen Date sepsis recognized/suspect: Nov 03, 2025 Time Sepsis recognized/suspect: 2234 Recent Procedure: No On Antibiotic Therapy: Yes Respiratory Rate >20: No Heart Rate >90: No Temp<36 C (96.8 F) or >38.3 C: Yes SBP <90 or MAP <65 mmHG: No New Acute Mental Status Change: Yes Is the patient on CPAP, BIPAP,: No Physician Orders Construction Framer (11/03/25 21:45) Construction Framer (11/03/25 ) Chest Portable (11/03/25 22:08) Troponin-I Hs (11/04/25 01:08) Head Without Contrast (11/03/25 22:09) Accucheck (11/03/25 22:46) Blood Culture (11/03/25 22:46) Vancomycin 1gm/250ml Kit (11/03/25 23:00) Lactic Acid W/ Reflex Order (11/04/25 00:00) Lactic Acid W/ Reflex Order (11/04/25 02:00) Cefepime 1gm/50ml (Maxipime 1gm/50ml) (11/03/25 23:00) Notify Md If Map <65 Or Bp<90 (11/03/25 22:46) If Map<65 Start Vasopressor (11/03/25 22:46) Sepsis Fluid Exclusion: (11/03/25 22:46) Sepsis Reassesment After Fluid (11/03/25 23:46) Vancomycin Per Pharmacy (11/03/25 23:15) Folic Acid Tablet (11/04/25 10:00) Thyroid Stimulating Hormone (11/03/25 23:09) Levothyroxine Tablet (Synthroid Tablet) (11/04/25 06:00) Spironolactone (Aldactone) (11/04/25 10:00) Lactulose Oral (11/04/25 10:00) Allergies (11/03/25 23:09) Code Status (11/03/25 23:09) Sodium Chloride Lock (Saline Lock Ns) (11/04/25 06:00) Oxygen Per Hour (11/03/25 23:09) Hydrocodone-Acet 5/325mg Tab (Farber 5/32 (11/03/25 23:15) Ondansetron Hcl (Zofran) (11/03/25 23:15) Docusate Sodium Capsule (Colace Capsule) (11/03/25 23:15) Fall Risk Precautions In Place QSHIFT (11/03/25 23:09) Complete Blood Count (11/04/25 04:00) Comprehensive Metabolic Panel (11/04/25 04:00) Cardiac Diet-2gna,Lofat,Lochol (11/04/25 Breakfast) Condition: Serious (11/03/25 23:09) Maintain Bed Rest (11/03/25 23:09) Sequential Compression Device (11/03/25 ) Ibuprofen Tablet (Motrin Tablet) (11/03/25 23:15) Sodium Chloride 0.9% (11/03/25 23:30) Vital Signs Date Time Temp Pulse Resp B/P (MAP) Pulse Ox O2 Delivery O2 Flow Rate FiO2 11/03/25 22:35 100.4 92 20 119/41 (67) 94 100.4 11/03/25 22:35 Nasal Cannula* 2 28 11/03/25 21:49 94 11/03/25 21:35 94 11/03/25 21:35 97.9 97 18 142/54 96 97.9 Laboratory Tests Test 11/03/25 21:50 Lactic Acid Level 2.0 mmol/L (0.4-2.0) White Blood Count 9.6 10^3/uL (4.4-10.8) # Medications Medications Dose Ordered Sig/Zully Route Start Time Stop Time Status Last Admin Dose Admin Vancomycin HCl 250 ml @ 250 mls/hr ONCE ONCE IV 11/03/25 23:00 11/03/25 23:59 11/03/25 23:49 250 MLS/HR Assessment/Plan Assessment/Plan Metabolic encephalopathy Hypercalcemia Hypernatremia Acute renal failure Elevated liver enzymes Thrombocytopenia Anemia, unspecified Altered level of consciousness Generalized weakness Plan 1. Admit to telemetry unit 2. Breathing treatment 3. Pain control management 4. IV antibiotic management 5. Management of fluids and electrolytes 6. Consultation for hospitalist 7. Diagnostic test chest x-ray 8. DVT prophylaxis-on SCDs 9. Repeat labs CBC, CMP in a.m. 10. Home medication reviewed and reconciled 11. Continue with current medical management 12. Treatment plan discussed with patient and RN. Patient verbalized understanding. Plan discussed with: Patient, Other (RN) My Orders Orders - BRENTON DOLL DNP Procedure Category Date Status Time Vancomycin Per PHA 11/03/25 Pending Pharmacy 23:15 Folic Acid Tablet PHA 11/04/25 In Process 10:00 Thyroid Stimulating LAB 11/03/25 In Process Hormone 23:09 Levothyroxine Tablet PHA 11/04/25 In Process (Synthroid Tablet) 06:00 Spironolactone PHA 11/04/25 In Process (Aldactone) 10:00 Lactulose Oral PHA 11/04/25 In Process 10:00 Allergies FRANKLIN 11/03/25 In Process 23:09 Code Status CODE 11/03/25 Transmitted 23:09 Sodium Chloride Lock PHA 11/04/25 In Process (Saline Lock Ns) 06:00 Oxygen Per Hour RT 11/03/25 Transmitted 23:09 Hydrocodone-Acet PHA 11/03/25 In Process 5/325mg Tab (Farber 23:15 Ondansetron Hcl PHA 11/03/25 In Process (Zofran) 23:15 Docusate Sodium PHA 11/03/25 In Process Capsule (Colace 23:15 Fall Risk Precautions [place]LIN 11/03/[address] 23:09 Complete Blood Count LAB 11/04/25 Verified 04:00 Comprehensive LAB 11/04/25 Verified Metabolic Panel 04:00 Cardiac DIET 11/04/25 Transmitted Diet-2gna,Lofat,Lochol Breakfast Condition: Serious FRANKLIN 11/03/25 In Process 23:09 Maintain Bed Rest FRANKLIN 11/03/25 In Process 23:09 Sequential FRANKLIN 11/03/25 In Process Compression Device Ibuprofen Tablet PHA 11/03/25 In Process (Motrin Tablet) 23:15 Problem List: (1) Metabolic encephalopathy (2) Hypercalcemia (3) Hypernatremia (4) Acute renal failure (5) Elevated liver enzymes (6) Thrombocytopenia (7) Anemia, unspecified (8) Altered level of consciousness (9) Generalized weakness Date of Service: Nov 03, 2025 Billing Provider: BRENTON DOLL DNP Common Visit Codes: [id number] INP/OBS CARE (HIGH) BRENTON DOLL DNP Nov 03, 2025 23:55
[2025-11-04] MEDS ORDERED: NITROGLYCERIN 0.4 MG SL TAB SL PRN
[2025-11-04] MEDS ORDERED: MORPHINE SULFATE INJ 2 MG/ml SYRG IV PRN
[2025-11-04] MEDS: FUROSEMIDE 20 MG/2 ML VIAL ONE (00:36)
[2025-11-04] MEDS: FUROSEMIDE 20 MG/2 ML VIAL IV ONE (00:45)
--- NOTE | 2025-11-04 00:56 | DVH ---
EXAM: CT HEAD WITHOUT CONTRAST INDICATION: aloc TECHNIQUE: CT of the head without intravenous contrast. Radiation Dose : 1. Head: CT Dose: CTDI volume is 55.43 mGy. Dose-length product is 1203.24 mGy*cm The dose indicators for CT are the volume Computed Tomography (CT) Dose Index (CTDIvol) and the Dose Length Product (DLP), and are measured in units of mGy and mGy-cm, respectively. These indicators are not patient dose, but values generated from the CT scanner acquisition factors. The report includes radiation exposure data for exposures received during this examination. COMPARISON: CT HEAD WITHOUT CONTRAST on DOS: 10/29/25, CT BRAIN on DOS: 10/23/25, CT HEAD WITHOUT CONTRAST on DOS: 09/17/25, CT HEAD WITHOUT CONTRAST on DOS: 07/14/25, CT HEAD WITHOUT CONTRAST on DOS: 07/07/25 FINDINGS: Motion artifact degrades fine detail. No acute territorial infarct, intracranial hemorrhage, or mass effect. There are global involutional changes with compensatory prominence of the ventricles and sulci. Patchy periventricular and subcortical white matter hypoattenuation is nonspecific but may be related to small vessel ischemic disease. Chronic deep cerebral lacunar infarct. Nonspecific cerebral calcifications are redemonstrated. Bilateral lens implants. The paranasal sinuses and mastoid air cells are clear. The osseous structures are unremarkable. IMPRESSION: 1. No acute territorial infarct, intracranial hemorrhage, or mass effect. 2. Age-related involutional changes. Chronic microvascular changes. 3. If clinical symptoms persist, MRI may be beneficial in further evaluation. Radiation optimization: All CT scans at this facility use at least one of these dose optimization techniques: automated exposure control mA and/or kV adjustment per patient size (includes targeted exams where dose is matched to clinical indication) or iterative reconstruction.
--- NOTE | 2025-11-04 01:21 | DVH ---
CLINICAL HISTORY: Altered level of consciousness. TECHNIQUE: Single frontal view of the chest was obtained. COMPARISON: XY CHEST XRAY 1 VIEW on DOS: 10/27/25. FINDINGS: DEVICES/LINES/TUBES: None. LUNGS: Extensive airspace opacities throughout the lungs, which appears slightly progressed compared to prior exam. PLEURA: No pneumothorax or conspicuous pleural effusion. MEDIASTINUM/OTHER: Unchanged mild cardiomegaly. Normal mediastinal silhouette. Trachea is midline. BONES: Unremarkable. UPPER ABDOMEN: Unremarkable. IMPRESSION: Extensive airspace opacities throughout the lungs, which appears slightly progressed compared to prior exam. This could be related to evolving interstitial and alveolar pulmonary edema and/or multifocal pneumonia.
[2025-11-04] MEDS: FREE WATER GT SCH (02:00)
[2025-11-04] MEDS ORDERED: DEXTROSE (50%) 50ML SYRG IV PRN (02:30)
[2025-11-04 03:46] LABS: Anion Gap 10 (5-15); BUN/Creatinine Ratio 25.8 (10.0-20.0); Carbon Dioxide 24 mmol/L (20-31); Potassium 3.8 mmol/L (3.5-5.1); Total Protein 6.3 g/dL (5.7-8.2)
[2025-11-04] MEDS: ALBUMIN 25% 100 ML IV ONE (03:48)
[2025-11-04 03:51] LABS: Hematocrit 29.9 % (36.0-46.0); Hemoglobin 10.0 g/dL (12.2-16.2); Mean Corpuscular Hemoglobin 33.7 pg (28.0-32.0); Mean Corpuscular Volume 100.7 fL (80.0-100.0); Nucleated Red Blood Cells % 0.1 %
[2025-11-04 04:09] LABS: Chloride 124 mmol/L (98-107); Glucose 174 mg/dL (74-106); Sodium 158 mmol/L (136-145)
[2025-11-04 04:10] LABS: Blood Urea Nitrogen 61 mg/dL (9-23)
[2025-11-04 04:11] LABS: Alanine Aminotransferase 43 U/L (7-40); Alkaline Phosphatase 168 U/L (46-116); Bilirubin, Total 1.7 mg/dL (0.2-1.0)
[2025-11-04 04:12] LABS: Albumin 2.2 g/dL (3.2-4.8); Calcium 13.5 mg/dL (8.7-10.4)
[2025-11-04] MEDS: SODIUM CHLOR 0.9% PF (SALINE LOCK) 10ML VIAL/SYR IV SCH (06:00)
[2025-11-04] MEDS: LEVOTHYROXINE SODIUM 100 MCG TAB PO SCH (06:00)
[2025-11-04] MEDS: InsuLIN REG 1unit/0.01ml Soln (100units/ml) SC SCH ×2 (07:03→22:00)
[2025-11-04] MEDS: ACCU-CHEK COMFORT CURVE STRIP VI SCH (07:04)
[2025-11-04 07:40] VITALS: PULSE 83; RESP 18; O2SAT 98
[2025-11-04] MEDS: FOLIC ACID 1 MG TAB PO SCH (10:00)
[2025-11-04] MEDS: SPIRONOLACTONE 25 MG TAB PO SCH (10:00)
[2025-11-04] MEDS: LACTULOSE 20Gm/30ML SOLN PO SCH (10:00)
[2025-11-04] MEDS: FUROSEMIDE 20 MG/2 ML VIAL IV SCH (12:15)
--- NOTE | 2025-11-04 16:59 | DVHPN2 ---
Subjective Patient is clinically stable. However weekend confused. Ammonia is normal. Lactic acid is normal. Remains thrombocytopenic from liver cirrhosis. No signs of acute bleeding. Changes from previous H/P or p: No Changes Eyes: No Pain, No Vision change, No Conjunctivae inflammation, No Eyelid inflammation, No Other, No Redness ENT: No Ear pain, No Ear discharge, No Nose pain, No Nose discharge, No Nose congestion, No Mouth pain, No Mouth swelling, No Throat pain, No Throat swelling, No Other Cardiovascular: No Chest Pain, No Palpitations, No Orthopnea, No Paroxysmal Noc. Dyspnea, No Edema, No Lt Headedness, No Other Respiratory: No Cough, No Dry; Shortness of breath; No SOB with excertion, No Wheezing, No Hemoptysis, No Pleuritic Pain, No Sputum, No Other Gastrointestinal: No Nausea, No Vomiting, No Abdominal Pain, No Diarrhea, No Constipation, No Melena, No Hematochezia, No Other Genitourinary: No Dysuria, No Frequency, No Incontinence, No Hematuria, No Retention, No Other Musculoskeletal: No other, No neck pain, No shoulder pain, No arm pain, No back pain, No hand pain, No leg pain, No foot pain Skin: No Rash, No Lesions, No Jaundice, No Bruising, No Other Objective Vitals Vital Signs Date Time Temp Pulse Resp B/P (MAP) Pulse Ox O2 Delivery O2 Flow Rate FiO2 11/04/25 15:00 97.8 81 20 119/40 (66) 96 97.8 11/04/25 07:40 Nasal Cannula* 2 28 Intake/Output Intake and Output 11/04/25 07:00 Intake Total 350 ml Balance 350 ml Intake IV Total 350 ml Exam Alert awake oriented to name. HEENT neck supple no JVD pupils equal round react to light. Heart regular rate and rhythm S1-S2. Lungs fair air movement poor inspiratory effort without wheezing. Chest tube will expansion. Abdomen soft positive bowel sounds nontender. Extremities improving edema positive pulses. Medications Current Medications Medications Dose Ordered Sig/Zully Route Start Time Stop Time Status Last Admin Dose Admin Vancomycin HCl 0 ml @ 0 mls/hr PER PHARMACY IV 11/03/25 23:15 Folic Acid 1 mg DAILY PO 11/04/25 10:00 Levothyroxine Sodium 100 mcg QAM@0600 PO 11/04/25 06:00 Spironolactone 25 mg DAILY PO 11/04/25 10:00 Lactulose 30 ml BID PO 11/04/25 10:00 Sodium Chloride 10 ml Q8HR IV 11/04/25 06:00 11/04/25 13:03 10 ML Acetaminophen/ Hydrocodone Bitart 1 tab Q4HP PRN PO 11/03/25 23:15 Ondansetron HCl 4 mg Q4HP PRN IV 11/03/25 23:15 Docusate Sodium 100 mg BIDPRN PRN PO 11/03/25 23:15 Ibuprofen 400 mg Q6HP PRN PO 11/03/25 23:15 Nitroglycerin 0.4 mg Q5MINP PRN SL 11/04/25 00:00 Morphine Sulfate 2 mg Q30M PRN IV 11/04/25 00:00 Furosemide 20 mg DAILY IV 11/04/25 10:00 11/04/25 12:15 20 MG Purified Water 100 ml Q4HR GT 11/04/25 02:00 11/04/25 02:00 100 ML Diagnostic Test (Pha) 1 strip ACHS 11/04/25 07:00 11/04/25 11:30 1 STRIP Insulin Human Regular HS SC 11/04/25 22:00 Insulin Human Regular AC SC 11/04/25 07:00 11/04/25 07:03 2 UNITS Dextrose 50 ml UD PRN IV 11/04/25 02:30 Laboratory Results Laboratory Tests 11/04/25 02:46 Chemistry Test 11/03/25 21:50 11/04/25 02:46 Albumin 2.2 g/dL (3.2-4.8) L 2.2 g/dL (3.2-4.8) L Calcium Level 13.5 mg/dL (8.7-10.4) *H 13.5 mg/dL (8.7-10.4) *H Magnesium Level 2.0 mg/dL (1.6-2.6) Total Protein 6.3 g/dL (5.7-8.2) 6.3 g/dL (5.7-8.2) Coagulation Test 11/03/25 21:50 Prothrombin Time 17.0 sec (9.3-11.8) H Prothrombin Time INR 1.69 (0.9-1.15) H Activated Partial Thromboplast Time 41.5 SEC (24.5-34.5) H Cardiac Markers Test 11/03/25 21:50 B-Type Natriuretic Peptide 108.02 pg/mL (0-100) LFT Test 11/03/25 21:50 11/04/25 02:46 Alanine Aminotransferase (ALT) 44 U/L (7-40) H 43 U/L (7-40) H Alkaline Phosphatase 168 U/L (46-116) H 168 U/L (46-116) H Aspartate Amino Transferase (AST) 142 U/L (13-40) H 137 U/L (13-40) H Total Bilirubin 1.6 mg/dL (0.2-1.0) H 1.7 mg/dL (0.2-1.0) H HgA1c, TSH Test 11/03/25 22:50 Thyroid Stimulating Hormone (TSH) 7.08 uIU/mL (0.55-4.78) H Urinalysis Test 11/03/25 22:48 Urine Color Light-orange (Yellow) Urine Clarity Turbid (Clear) H Urine pH 5.5 (5.0-9.0) Urine Specific [place] 1.016 (1.001-1.035) Urine Protein 2+ (Negative) H Urine Ketones 1+ (Negative) H Urine Blood 3+ /uL (Negative) H Urine Nitrite Negative (Negative) Urine Bilirubin Negative (Negative) Urine Urobilinogen Normal mg/dL (Negative) Urine Leukocyte Esterase 3+ /uL (Negative) Urine RBC 449 /hpf (0 - 4) Urine Microscopic WBC 109 /HPF (0-5) H Urine Squamous Epithelial Cells Few /hpf (<5) Urine Bacteria None seen /hpf (None Seen) Urine Hyaline Casts Many /lpf (0 - 2) Urine Mucus Few (None Seen) Urine Yeast (Budding) Occasional /hpf (None Urine Glucose Trace mg/dL (Normal) Assessment/Plan Assessment/Plan Start her on IV fluids for hypercalcemia. Consider zoledronic acid. Renal consultation for management of her hypercalcemia and hypernatremia. GI consultation for possible PEG tube given patient is long-term nutrition and meds. Meantime continue lactulose. Continue rest of supportive care and treatment including antibiotics for UTI. Overall prognosis remains poor. Discussed with the nurse regarding care plan. Further clinical management per clinical course and recommendations from the consultants. Plan discussed with: Other My Orders Orders - MIRELLA WELDON MD Procedure Category Date Status Time D5w 5% PHA 11/04/25 Verified 17:00 *[facility]. [facility] CONS 11/04/25 Verified -[place] 16:54 * [facility] CONS 11/04/25 Verified 16:54 Problem List: (1) Acute hepatic encephalopathy (2) UTI (urinary tract infection) (3) Bilateral cellulitis of lower leg (4) JUAN M (acute kidney injury) (5) Generalized weakness (6) Hypercalcemia (7) Thrombocytopenia (8) Hypernatremia (9) DNR (do not resuscitate) Date of Service: Nov 04, 2025 Billing Provider: MIRELLA WELDON MD Common Visit Codes: [id number] INP/OBS CARE(MOD) MIRELLA WELDON MD Nov 04, 2025 16:59
[2025-11-04] MEDS: ZOLEDRONIC ACID 4 MG in SODIUM CHL 0.9% 100 ML IV ONE (17:30)
[2025-11-04] MEDS: D5W 5% 1,000 ML IV ONE (17:59)
--- NOTE | 2025-11-04 18:59 | DVHINCON2 ---
Date of service: Nov 04, [address] Boswell Reason for Consultation Acute kidney injury History of Present Illness Patient is a 80-year-old female with past medical history significant for HTN, rheumatoid arthritis, diastolic HF, diabetes, and nonalcoholic liver cirrhosis who was recently [place] [facility] [place] with [place] respiratory failure pneumonia, patient is a DNR patient is admitted from [facility] for altered level of consciousness on admission patient found to have elevated BUN creatinine nephrology is consulted for acute kidney injury Past Medical History HTN, rheumatoid arthritis, diastolic HF, diabetes, nonalcoholic liver cirrhosis, pneumonia, acute respiratory failure Allergies: Coded Allergies: Penicillins (Verified Allergy, Unknown, 12/14/24) Home Meds Active Scripts Azithromycin (Azithromycin) 500 Mg Tab, 1 TAB PO DAILY, #5 TAB Prov:QASIM MONROY MD 07/09/25 Cephalexin Monohydrate (Cephalexin) 500 Mg Cap, 1 CAP PO TID for 7 Days, #21 CAP Prov:QASIM MONROY MD 07/09/25 Lactulose (Lactulose) 10 Gm Brian, 10 GM PO TID for 90 Days, #90 PACK Prov:ANSON CHENG MD 05/24/25 Reported Medications Hydroxychloroquine Sulfate (PLAQUENIL) 200 Mg Tab, 1 TAB PO BID, #180 TAB 3 Refills 10/27/25 Potassium Chloride (Klor-Con M10) 10 Meq Tab, 1 TAB PO DAILY, #30 TAB 5 Refills 05/23/25 Linagliptin Base (TRADJENTA) 5 Mg Tab, 5 MG PO DAILY, TAB 05/23/25 Vericiguat (Verquvo) 2.5 Mg Tab, 2.5 MG PO DAILY, TAB 05/23/25 Furosemide (Furosemide) 40 Mg Tab, 40 MG PO DAILY for 30 Days 05/23/25 Pregabalin (Lyrica) 150 Mg Cap, 150 MG PO HS, CAP 05/23/25 Naproxen (Naproxen) 375 Mg Tab, 375 MG PO DAILYPRN, TAB 05/23/25 Pantoprazole Sodium (PANTOPRAZOLE SODIUM) 40 Mg Inj, 40 MG IV DAILY, INJ 05/23/25 B-Complex Vitamins (B Complex) Cap, 1 OR DAILY, CAP 04/07/25 Timolol Maleate (Timolol Maleate Ophthalmi) 0.5 % Sandra, 1 DROP EACHEYE BID, #5 ML 5 Refills 02/05/25 Folic Acid (Folic Acid) 1 Mg Tab, 1 MG PO DAILY, TAB 02/05/25 Clonidine Hcl (VHWRALLM-OOR-0 PATCH) 0.1 Mg/24 Hr Ph, 0.1 MG TD QWEEKLY, PATCH 02/05/25 Levothyroxine Sodium (Levothyroxine Sodium) 100 Mcg Tab, 100 MCG PO QAM for 30 Days, MCG 02/03/25 Linagliptin Base (TRADJENTA) 5 Mg Tab, 5 MG PO DAILY@BREAKFAST, TAB 02/03/25 Current Medications Current Medications Medications (Trade) Dose Ordered Sig/Zully Route PRN Reason Start Time Stop Time Status Last Admin Insulin Human Regular (InsuLIN R) HS SC 11/04/25 22:00 Dextrose 1,000 ml @ 100 mls/hr Q10H IV 11/04/25 19:00 11/05/25 05:00 Dopamine HCl/ Dextrose 250 ml @ 4.5 mls/hr Q24H IV 11/04/25 19:00 Family History: Diabetes mellitus G8 FATHER FH: stomach cancer G8 MOTHER Review of Systems Can not be obtained due to altered level of consciousness H&P Exam Vital Signs/I&O Vital Sign Date Time Temp Pulse Resp B/P (MAP) Pulse Ox O2 Delivery O2 Flow Rate FiO2 11/05/25 12:00 99 11/05/25 10:30 99.1 18 94/52 (38) 92 99.1 11/05/25 08:00 Nasal Cannula* 6 44 Intake and Output 11/04/25 11/05/25 19:00 07:00 Intake Total 155 ml Output Total 500 ml Balance -345 ml Intake IV Total 155 ml Output Urine Total 500 ml Physical Exam Patient lying non communicating Left facial droop Lungs clear to auscultation bilaterally Cardiac exam regular rate and rhythm GI soft nontender Omer catheter Extremities no clubbing cyanosis or edema Neuro can not assess Labs/Diagnostic Data Labs/Diagnostic Data Laboratory Tests Test 11/05/25 12:37 11/05/25 06:25 11/04/25 22:25 11/04/25 19:32 Range/Units POC Glucose 139 H 113 H 70-106 mg/dl White Blood Count 16.0 #H 4.4-10.8 10^3/uL Red Blood Count 2.98 L 4.0-5.20 10^6/uL Hemoglobin 9.9 L 12.2-16.2 g/dL Hematocrit 30.4 L 36.0-46.0 % Mean Corpuscular Volume 102.1 H 80.0-100.0 fL Mean Corpuscular Hemoglobin 33.3 H 28.0-32.0 pg Mean Corpuscular Hemoglobin Concent 32.6 32.0-36.0 g/dL Red Cell Distribution Width 16.3 H 11.8-14.3 % Platelet Count 43 L 140-450 10^3/uL Mean Platelet Volume 9.1 6.9-10.8 fL Neutrophils (%) (Auto) 81.2 H 37.0-80.0 % Lymphocytes (%) (Auto) 8.9 L 10.0-50.0 % Monocytes (%) (Auto) 7.2 0.0-12.0 % Eosinophils (%) (Auto) 2.2 0.0-7.0 % Basophils (%) (Auto) 0.5 0.0-2.0 % Neutrophils # (Auto) 13.0 H 1.6-8.6 10 ^3/uL Lymphocytes # (Auto) 1.4 0.4-5.4 10 ^3/uL Monocytes # (Auto) 1.1 0-1.3 10 ^3/uL Eosinophils # (Auto) 0.3 0-0.8 10 ^3/uL Basophils # (Auto) 0.1 0-0.2 10 ^3/uL Nucleated Red Blood Cells 0.1 % Sodium Level 158 H 136-145 mmol/L Potassium Level 4.3 3.5-5.1 mmol/L Chloride Level 124 H 98-107 mmol/L Carbon Dioxide Level 24 20-31 mmol/L Anion Gap 10 5-15 Blood Urea Nitrogen 67 H 9-23 mg/dL Creatinine 2.89 H 0.550-1.02 mg/dL Glomerular Filtration Rate Calc 16 >90 mL/min BUN/Creatinine Ratio 23.2 H 10.0-20.0 Serum Glucose 106 74-106 mg/dL Calcium Level 13.9 *H 8.7-10.4 mg/dL Ammonia 37 H 11-32 umol/L Random Vancomycin Level 37.9 H 5-10 ug/mL Phosphorus Level 4.9 2.4-5.1 mg/dL Magnesium Level 2.0 1.6-2.6 mg/dL Parathyroid Hormone (Intact) 12.9 L 18.4-80.1 pg/mL Test 11/04/25 17:27 11/04/25 12:10 11/04/25 02:46 11/04/25 01:10 Range/Units POC Glucose 109 H 123 H 70-106 mg/dl White Blood Count 9.7 4.4-10.8 10^3/uL Red Blood Count 2.97 L 4.0-5.20 10^6/uL Hemoglobin 10.0 L 12.2-16.2 g/dL Hematocrit 29.9 L 36.0-46.0 % Mean Corpuscular Volume 100.7 H 80.0-100.0 fL Mean Corpuscular Hemoglobin 33.7 H 28.0-32.0 pg Mean Corpuscular Hemoglobin Concent 33.5 32.0-36.0 g/dL Red Cell Distribution Width 15.9 H 11.8-14.3 % Platelet Count 31 L 140-450 10^3/uL Mean Platelet Volume 9.4 6.9-10.8 fL Neutrophils (%) (Auto) 76.1 37.0-80.0 % Lymphocytes (%) (Auto) 12.0 10.0-50.0 % Monocytes (%) (Auto) 6.7 0.0-12.0 % Eosinophils (%) (Auto) 4.1 0.0-7.0 % Basophils (%) (Auto) 1.1 0.0-2.0 % Neutrophils # (Auto) 7.4 1.6-8.6 10 ^3/uL Lymphocytes # (Auto) 1.2 0.4-5.4 10 ^3/uL Monocytes # (Auto) 0.7 0-1.3 10 ^3/uL Eosinophils # (Auto) 0.4 0-0.8 10 ^3/uL Basophils # (Auto) 0.1 0-0.2 10 ^3/uL Nucleated Red Blood Cells 0.1 % Sodium Level 158 H 136-145 mmol/L Potassium Level 3.8 3.5-5.1 mmol/L Chloride Level 124 H 98-107 mmol/L Carbon Dioxide Level 24 20-31 mmol/L Anion Gap 10 5-15 Blood Urea Nitrogen 61 #H 9-23 mg/dL Creatinine 2.36 H 0.550-1.02 mg/dL Glomerular Filtration Rate Calc 20 >90 mL/min BUN/Creatinine Ratio 25.8 H 10.0-20.0 Serum Glucose 174 H 74-106 mg/dL Calcium Level 13.5 *H 8.7-10.4 mg/dL Total Bilirubin 1.7 H 0.2-1.0 mg/dL Aspartate Amino Transferase (AST) 137 H 13-40 U/L Alanine Aminotransferase (ALT) 43 H 7-40 U/L Alkaline Phosphatase 168 H 46-116 U/L Total Protein 6.3 5.7-8.2 g/dL Albumin 2.2 L 3.2-4.8 g/dL Troponin I High Sensitivity 171 *H </=34 ng/L Test 11/03/25 22:50 11/03/25 22:48 11/03/25 21:50 Range/Units Troponin I High Sensitivity 189 *H 187 *H </=34 ng/L Thyroid Stimulating Hormone (TSH) 7.08 H 0.55-4.78 uIU/mL Urine Color Light-orange Yellow Urine Clarity Turbid H Clear Urine pH 5.5 5.0-9.0 Urine Specific [place] 1.016 1.001-1.035 Urine Protein 2+ H Negative Urine Ketones 1+ H Negative Urine Blood 3+ H Negative /uL Urine Nitrite Negative Negative Urine Bilirubin Negative Negative Urine Urobilinogen Normal Negative mg/dL Urine Leukocyte Esterase 3+ Negative /uL Urine RBC 449 0 - 4 /hpf Urine Microscopic WBC 109 H 0-5 /HPF Urine Squamous Epithelial Cells Few <5 /hpf Urine Bacteria None seen None Seen /hpf Urine Hyaline Casts Many 0 - 2 /lpf Urine Mucus Few None Seen Urine Yeast (Budding) Occasional None Seen /hpf Urine Glucose Trace Normal mg/dL White Blood Count 9.6 # 4.4-10.8 10^3/uL Red Blood Count 2.96 L 4.0-5.20 10^6/uL Hemoglobin 10.0 L 12.2-16.2 g/dL Hematocrit 30.4 L 36.0-46.0 % Mean Corpuscular Volume 102.6 #H 80.0-100.0 fL Mean Corpuscular Hemoglobin 33.9 H 28.0-32.0 pg Mean Corpuscular Hemoglobin Concent 33.1 32.0-36.0 g/dL Red Cell Distribution Width 16.0 H 11.8-14.3 % Platelet Count 34 L 140-450 10^3/uL Mean Platelet Volume 8.6 6.9-10.8 fL Neutrophils (%) (Auto) 74.4 37.0-80.0 % Lymphocytes (%) (Auto) 12.9 10.0-50.0 % Monocytes (%) (Auto) 8.0 0.0-12.0 % Eosinophils (%) (Auto) 4.1 0.0-7.0 % Basophils (%) (Auto) 0.6 0.0-2.0 % Neutrophils # (Auto) 7.2 1.6-8.6 10 ^3/uL Lymphocytes # (Auto) 1.2 0.4-5.4 10 ^3/uL Monocytes # (Auto) 0.8 0-1.3 10 ^3/uL Eosinophils # (Auto) 0.4 0-0.8 10 ^3/uL Basophils # (Auto) 0.1 0-0.2 10 ^3/uL Nucleated Red Blood Cells 0.2 % Prothrombin Time 17.0 H 9.3-11.8 sec Prothrombin Time INR 1.69 H 0.9-1.15 Activated Partial Thromboplast Time 41.5 H 24.5-34.5 SEC Sodium Level 157 #H 136-145 mmol/L Potassium Level 3.8 3.5-5.1 mmol/L Chloride Level 125 #H 98-107 mmol/L Carbon Dioxide Level 23 20-31 mmol/L Anion Gap 9 5-15 Blood Urea Nitrogen 46 H 9-23 mg/dL Creatinine 2.25 #H 0.550-1.02 mg/dL Glomerular Filtration Rate Calc 21 >90 mL/min BUN/Creatinine Ratio 20.4 H 10.0-20.0 Serum Glucose 159 H 74-106 mg/dL Lactic Acid Level 2.0 0.4-2.0 mmol/L Calcium Level 13.5 *H 8.7-10.4 mg/dL Magnesium Level 2.0 1.6-2.6 mg/dL Total Bilirubin 1.6 H 0.2-1.0 mg/dL Aspartate Amino Transferase (AST) 142 H 13-40 U/L Alanine Aminotransferase (ALT) 44 H 7-40 U/L Alkaline Phosphatase 168 H 46-116 U/L Ammonia 22 11-32 umol/L B-Type Natriuretic Peptide 108.02 0-100 pg/mL Total Protein 6.3 5.7-8.2 g/dL Albumin 2.2 L 3.2-4.8 g/dL Plasma/Serum Blood Alcohol < 3.0 <10 mg/dL Assessment Acute kidney injury superimposed Chronic Kidney Disease secondary hemodynamic mediated Acute respiratory failure, O2 supplement Metabolic encephalopathy Left facial droop NSTEMI Multifocal pneumonia Hypernatremia due to dehydration Hypercalcemia due to dehydration Liver cirrhosis Sepsis Anemia of chronic kidney disease Recommendations Closely monitor fluid and electrolytes Avoid nephrotoxic medication Strict I&Os Check urine electrolytes and protein excretion Kidney ultrasound reported earlier within normal limit IVF D5W at 100 cc/hour Low-dose dopamine Check 25 hydroxyvitamin D PTH and phosphorus IV antibiotics Cardiology consult Pulmonary consult We will continue to follow Patient seen and examined by myself in the ER. I discussed my plan of care with the daughter and granddaughter at the bedside and the primary nurse I would like to thank Dr. Boswell for the consult, will follow up Plan discussed with: Daughter, Other (Nurse) BONNIE CERVANTES MD Nov 04, 2025 18:59
[2025-11-04] MEDS: DOPamine 1600MCG/ML D5W 250 ML IV SCH (19:00)
[2025-11-04] MEDS: D5W 5% 1,000 ML IV SCH (19:00)
[2025-11-04 20:04] LABS: Magnesium 2.0 mg/dL (1.6-2.6)
[2025-11-04 20:18] VITALS: PULSE 88; RESP 18; O2SAT 97
--- NOTE | 2025-11-04 21:35 | DVHINCON2 ---
Date of service: Nov 04, [address] Boswell Family History: Diabetes mellitus G8 FATHER FH: stomach cancer G8 MOTHER Allergies: Coded Allergies: Penicillins (Verified Allergy, Unknown, 12/14/24) Home Meds Active Scripts Azithromycin (Azithromycin) 500 Mg Tab, 1 TAB PO DAILY, #5 TAB Prov:QASIM MONROY MD 07/09/25 Cephalexin Monohydrate (Cephalexin) 500 Mg Cap, 1 CAP PO TID for 7 Days, #21 CAP Prov:QASIM MONROY MD 07/09/25 Lactulose (Lactulose) 10 Gm Brian, 10 GM PO TID for 90 Days, #90 PACK Prov:ANSON CHENG MD 05/24/25 Reported Medications Hydroxychloroquine Sulfate (PLAQUENIL) 200 Mg Tab, 1 TAB PO BID, #180 TAB 3 Refills 10/27/25 Potassium Chloride (Klor-Con M10) 10 Meq Tab, 1 TAB PO DAILY, #30 TAB 5 Refills 05/23/25 Linagliptin Base (TRADJENTA) 5 Mg Tab, 5 MG PO DAILY, TAB 05/23/25 Vericiguat (Verquvo) 2.5 Mg Tab, 2.5 MG PO DAILY, TAB 05/23/25 Furosemide (Furosemide) 40 Mg Tab, 40 MG PO DAILY for 30 Days 05/23/25 Pregabalin (Lyrica) 150 Mg Cap, 150 MG PO HS, CAP 05/23/25 Naproxen (Naproxen) 375 Mg Tab, 375 MG PO DAILYPRN, TAB 05/23/25 Pantoprazole Sodium (PANTOPRAZOLE SODIUM) 40 Mg Inj, 40 MG IV DAILY, INJ 05/23/25 B-Complex Vitamins (B Complex) Cap, 1 OR DAILY, CAP 04/07/25 Timolol Maleate (Timolol Maleate Ophthalmi) 0.5 % Sandra, 1 DROP EACHEYE BID, #5 ML 5 Refills 02/05/25 Folic Acid (Folic Acid) 1 Mg Tab, 1 MG PO DAILY, TAB 02/05/25 Clonidine Hcl (VITILJUB-LTF-8 PATCH) 0.1 Mg/24 Hr Ph, 0.1 MG TD QWEEKLY, PATCH 02/05/25 Levothyroxine Sodium (Levothyroxine Sodium) 100 Mcg Tab, 100 MCG PO QAM for 30 Days, MCG 02/03/25 Linagliptin Base (TRADJENTA) 5 Mg Tab, 5 MG PO DAILY@BREAKFAST, TAB 02/03/25 Current Medications Current Medications Medications (Trade) Dose Ordered Sig/Zully Route PRN Reason Start Time Stop Time Status Last Admin Vancomycin HCl 0 ml @ 0 mls/hr PER PHARMACY IV 11/03/25 23:15 Folic Acid 1 mg DAILY PO 11/04/25 10:00 Levothyroxine Sodium (Synthroid Tablet) 100 mcg QAM@0600 PO 11/04/25 06:00 Spironolactone (Aldactone) 25 mg DAILY PO 11/04/25 10:00 11/04/25 16:56 DC Lactulose 30 ml BID PO 11/04/25 10:00 Sodium Chloride (Saline Lock Ns) 10 ml Q8HR IV 11/04/25 06:00 11/04/25 13:03 Acetaminophen/ Hydrocodone Bitart (Christine 5/325MG Tab) 1 tab Q4HP PRN PO MODERATE PAIN (4-6 PAIN SCALE) 11/03/25 23:15 Ondansetron HCl (Zofran) 4 mg Q4HP PRN IV NAUSEA / VOMITING 11/03/25 23:15 Docusate Sodium (Colace Capsule) 100 mg BIDPRN PRN PO FOR CONSTIPATION 11/03/25 23:15 Ibuprofen (Motrin Tablet) 400 mg Q6HP PRN PO PAIN SCALE 1-3 OR TEMP>100.4 11/03/25 23:15 Nitroglycerin (Ntrostat Sublingual) 0.4 mg Q5MINP PRN SL FOR CHEST PAIN 11/04/25 00:00 Morphine Sulfate 2 mg Q30M PRN IV FOR CHEST PAIN 11/04/25 00:00 Furosemide (Lasix Injection) 20 mg DAILY IV 11/04/25 10:00 11/04/25 12:15 Purified Water 100 ml Q4HR GT 11/04/25 02:00 11/04/25 02:00 Diagnostic Test (Pha) (Accu-Chek Comfort Curve T) 1 strip ACHS 11/04/25 07:00 11/04/25 17:00 Insulin Human Regular (InsuLIN R) HS SC 11/04/25 22:00 Insulin Human Regular (InsuLIN R) AC SC 11/04/25 07:00 11/04/25 07:03 Dextrose 50 ml UD PRN IV Blood Sugar LESS THAN 60 11/04/25 02:30 Dextrose 1,000 ml @ 100 mls/hr Q10H IV 11/04/25 19:00 Dopamine HCl/ Dextrose 250 ml @ 4.5 mls/hr Q24H IV 11/04/25 19:00 Vital Signs Vital Signs Date Time Temp Pulse Resp B/P (MAP) Pulse Ox O2 Delivery O2 Flow Rate FiO2 11/04/25 20:18 88 18 97 Nasal Cannula* 2 28 11/04/25 20:18 98.1 108/35 (59) 98.1 Labs/Diagnostic Data Labs Test 11/04/25 19:32 11/04/25 17:27 11/04/25 02:46 11/04/25 01:10 Range/Units Phosphorus Level 4.9 2.4-5.1 mg/dL Magnesium Level 2.0 1.6-2.6 mg/dL Parathyroid Hormone (Intact) 12.9 L 18.4-80.1 pg/mL POC Glucose 109 H 70-106 mg/dl White Blood Count 9.7 4.4-10.8 10^3/uL Red Blood Count 2.97 L 4.0-5.20 10^6/uL Hemoglobin 10.0 L 12.2-16.2 g/dL Hematocrit 29.9 L 36.0-46.0 % Mean Corpuscular Volume 100.7 H 80.0-100.0 fL Mean Corpuscular Hemoglobin 33.7 H 28.0-32.0 pg Mean Corpuscular Hemoglobin Concent 33.5 32.0-36.0 g/dL Red Cell Distribution Width 15.9 H 11.8-14.3 % Platelet Count 31 L 140-450 10^3/uL Mean Platelet Volume 9.4 6.9-10.8 fL Neutrophils (%) (Auto) 76.1 37.0-80.0 % Lymphocytes (%) (Auto) 12.0 10.0-50.0 % Monocytes (%) (Auto) 6.7 0.0-12.0 % Eosinophils (%) (Auto) 4.1 0.0-7.0 % Basophils (%) (Auto) 1.1 0.0-2.0 % Neutrophils # (Auto) 7.4 1.6-8.6 10 ^3/uL Lymphocytes # (Auto) 1.2 0.4-5.4 10 ^3/uL Monocytes # (Auto) 0.7 0-1.3 10 ^3/uL Eosinophils # (Auto) 0.4 0-0.8 10 ^3/uL Basophils # (Auto) 0.1 0-0.2 10 ^3/uL Nucleated Red Blood Cells 0.1 % Sodium Level 158 H 136-145 mmol/L Potassium Level 3.8 3.5-5.1 mmol/L Chloride Level 124 H 98-107 mmol/L Carbon Dioxide Level 24 20-31 mmol/L Anion Gap 10 5-15 Blood Urea Nitrogen 61 #H 9-23 mg/dL Creatinine 2.36 H 0.550-1.02 mg/dL Glomerular Filtration Rate Calc 20 >90 mL/min BUN/Creatinine Ratio 25.8 H 10.0-20.0 Serum Glucose 174 H 74-106 mg/dL Calcium Level 13.5 *H 8.7-10.4 mg/dL Total Bilirubin 1.7 H 0.2-1.0 mg/dL Aspartate Amino Transferase (AST) 137 H 13-40 U/L Alanine Aminotransferase (ALT) 43 H 7-40 U/L Alkaline Phosphatase 168 H 46-116 U/L Total Protein 6.3 5.7-8.2 g/dL Albumin 2.2 L 3.2-4.8 g/dL Troponin I High Sensitivity 171 *H </=34 ng/L Test 11/03/25 22:50 11/03/25 22:48 11/03/25 21:50 Range/Units Thyroid Stimulating Hormone (TSH) 7.08 H 0.55-4.78 uIU/mL Urine Color Light-orange Yellow Urine Clarity Turbid H Clear Urine pH 5.5 5.0-9.0 Urine Specific [place] 1.016 1.001-1.035 Urine Protein 2+ H Negative Urine Ketones 1+ H Negative Urine Blood 3+ H Negative /uL Urine Nitrite Negative Negative Urine Bilirubin Negative Negative Urine Urobilinogen Normal Negative mg/dL Urine Leukocyte Esterase 3+ Negative /uL Urine RBC 449 0 - 4 /hpf Urine Microscopic WBC 109 H 0-5 /HPF Urine Squamous Epithelial Cells Few <5 /hpf Urine Bacteria None seen None Seen /hpf Urine Hyaline Casts Many 0 - 2 /lpf Urine Mucus Few None Seen Urine Yeast (Budding) Occasional None Seen /hpf Urine Glucose Trace Normal mg/dL Prothrombin Time 17.0 H 9.3-11.8 sec Prothrombin Time INR 1.69 H 0.9-1.15 Activated Partial Thromboplast Time 41.5 H 24.5-34.5 SEC Lactic Acid Level 2.0 0.4-2.0 mmol/L Ammonia 22 11-32 umol/L B-Type Natriuretic Peptide 108.02 0-100 pg/mL Plasma/Serum Blood Alcohol < 3.0 <10 mg/dL Plan/Recommendation Plan Patient will be monitored over the next 24-48 hours We will reassess and plan for a PEG tube placement if required Continue supportive care Plan discussed with: Other (Nurse) EDGARDO BELL MD Nov 04, 2025 21:35
[2025-11-05 06:56] LABS: Nucleated Red Blood Cells % 0.1 %
[2025-11-05 06:58] LABS: Hematocrit 30.4 % (36.0-46.0); Hemoglobin 9.9 g/dL (12.2-16.2); Mean Corpuscular Hemoglobin 33.3 pg (28.0-32.0); Mean Corpuscular Volume 102.1 fL (80.0-100.0)
[2025-11-05 07:04] LABS: Potassium 4.3 mmol/L (3.5-5.1)
[2025-11-05 07:05] LABS: Anion Gap 10 (5-15); Carbon Dioxide 24 mmol/L (20-31)
[2025-11-05 07:10] LABS: BUN/Creatinine Ratio 23.2 (10.0-20.0)
[2025-11-05 07:12] LABS: Blood Urea Nitrogen 67 mg/dL (9-23); Chloride 124 mmol/L (98-107); Glucose 106 mg/dL (74-106); Sodium 158 mmol/L (136-145)
[2025-11-05 07:14] LABS: Calcium 13.9 mg/dL (8.7-10.4)
[2025-11-05 08:00] VITALS: PULSE 110; RESP 16; O2SAT 90
--- NOTE | 2025-11-05 10:16 | MEDREC ---
[facility] ASP Intervention Section I [facility] ASP Intervention: Review courses of therapy (FOR UTI PLEASE CONSIDER GRAM NEGATIVE COVERAGE ) HUGH EMMANUEL PHARMACIST Nov 05, 2025 10:16
--- NOTE | 2025-11-05 10:28 | MEDREC ---
[facility] ASP Intervention Section I [facility] ASP Intervention: Review courses of therapy (FOR UTI AND PNA PLEASE CONSIDER GRAM NEGATIVE COVERAGE ) HUGH EMMANUEL PHARMACIST Nov 05, 2025 10:28
--- NOTE | 2025-11-05 13:18 | DVHPN2 ---
Progress Note Date Seen: Nov 05, 2025 Medical Necessity Reason Pt with a Central, PICC or Fol: No Subjective Review of Systems: RESPIRATORY:Abnormal Other Systems: Patient seen and examined by myself today in follow-up, high flow oxygen Objective vital signs Vital Sign Date Time Temp Pulse Resp B/P (MAP) Pulse Ox O2 Delivery O2 Flow Rate FiO2 11/05/25 12:00 99 11/05/25 10:30 99.1 18 94/52 (66) 92 99.1 11/05/25 08:00 Nasal Cannula* 6 44 Total Intake and Output 11/04/25 11/04/25 11/05/25 15:00 23:00 07:00 Intake Total 155 ml Output Total 500 ml Balance -345 ml medications Current Medications Medications Dose Ordered Sig/Zully Route Start Time Stop Time Status Last Admin Dose Admin Vancomycin HCl 0 ml @ 0 mls/hr PER PHARMACY IV 11/03/25 23:15 Folic Acid 1 mg DAILY PO 11/04/25 10:00 Levothyroxine Sodium 100 mcg QAM@0600 PO 11/04/25 06:00 Lactulose 30 ml BID PO 11/04/25 10:00 11/04/25 22:27 30 ML Sodium Chloride 10 ml Q8HR IV 11/04/25 06:00 11/05/25 05:47 10 ML Acetaminophen/ Hydrocodone Bitart 1 tab Q4HP PRN PO 11/03/25 23:15 Ondansetron HCl 4 mg Q4HP PRN IV 11/03/25 23:15 Docusate Sodium 100 mg BIDPRN PRN PO 11/03/25 23:15 Ibuprofen 400 mg Q6HP PRN PO 11/03/25 23:15 Nitroglycerin 0.4 mg Q5MINP PRN SL 11/04/25 00:00 Morphine Sulfate 2 mg Q30M PRN IV 11/04/25 00:00 Furosemide 20 mg DAILY IV 11/04/25 10:00 11/05/25 09:50 20 MG Purified Water 100 ml Q4HR GT 11/04/25 02:00 11/05/25 05:46 100 ML Diagnostic Test (Pha) 1 strip ACHS 11/04/25 07:00 11/05/25 12:39 1 STRIP Insulin Human Regular HS SC 11/04/25 22:00 Insulin Human Regular AC SC 11/04/25 07:00 11/04/25 07:03 2 UNITS Dextrose 50 ml UD PRN IV 11/04/25 02:30 Dextrose 1,000 ml @ 100 mls/hr Q10H IV 11/04/25 19:00 11/05/25 05:00 100 MLS/HR Dopamine HCl/ Dextrose 250 ml @ 4.5 mls/hr Q24H IV 11/04/25 19:00 Examination: LUNGS:Abnormal, CVS:Normal, MSK:Normal laboratory and microbiology Laboratory Tests 11/05/25 06:25 Test 11/05/25 06:25 Range/Units Serum Glucose 106 74-106 mg/dL Microbiology Date/Time Source Procedure Growth Status 11/03/25 22:50 Blood Blood Culture - Preliminary NO GROWTH AFTER 24 HOURS OF INCUBATION. Resulted 11/03/25 22:48 Voided Urine Urine Culture - Preliminary Resulted Problem List/Assessment/Plan Problem List/Assessment/Plan Acute kidney injury superimposed Chronic Kidney Disease secondary hemodynamic mediated Acute respiratory failure, O2 supplement Metabolic encephalopathy Left facial droop NSTEMI Multifocal pneumonia Hypernatremia due to dehydration Hypercalcemia, rule out malignant Liver cirrhosis Sepsis Anemia of chronic kidney disease Recommendations Kidney function slightly worsened today Increased urine output Omer catheter Strict I&Os Kidney ultrasound reported earlier within normal limit IVF D5W at 100 cc/hour Low-dose dopamine IV antibiotics Cardiology consult Pulmonary consult We will continue to follow I discussed my plan of care with daughter and granddaughter at the bedside daughter we will bring copies of previous lab Plan discussed with: Daughter My Orders My Orders Orders - BONNIE CERVANTES MD Procedure Category Date Status Time D5w 5% (Dextrose 5%) PHA 11/04/25 In Process 19:00 Vitamin D, 25-Hydroxy LAB 11/04/25 In Process 18:48 Urine Sodium LAB 11/04/25 Logged 18:48 Urinalysis LAB 11/04/25 Logged 18:48 Osmolality Urine LAB 11/04/25 Logged 18:48 Hepatitis B Surface LAB 11/04/25 In Process Antigen 18:48 Hepatitis C Antibody LAB 11/04/25 In Process 18:48 Dopamine 1600mcg/Ml PHA 11/04/25 In Process D5W 19:00 Urine LAB 11/04/25 Logged Protein/Creatinine 18:48 Communication Order ORDERS 11/05/25 Transmitted 11:03 Sepsis reassessment post fluid Capillary Refill: < 3 seconds BONNIE CERVANTES MD Nov 05, 2025 13:18
[2025-11-05] MEDS: D5W 5% 1,000 ML IV SCH (13:30)
[2025-11-05 14:22] LABS: Urine Budding Yeast OCCASIONAL /hpf (None Seen); Urine Protein, UAD 2+ (Negative); Urine WBC Clumps PRESENT /hpf (None Seen)
[2025-11-05 14:35] LABS: Protein, Urine 481.3 mg/dL (1-14)
--- NOTE | 2025-11-05 15:58 | DVHPN2 ---
Progress Note - Dictate Date Seen: Nov 05, 2025 Medical Necessity Reason Pt with a Central, PICC or Fol: No Subjective No new complaints Patient is lethargic and sleepy Seen in ER bed 12 Patient had hypercalcemia Mild microcytic anemia, H&H stable vital signs Vital Sign Date Time Temp Pulse Resp B/P (MAP) Pulse Ox O2 Delivery O2 Flow Rate FiO2 11/05/25 14:30 98 14 90/36 (54) 91 11/05/25 10:30 99.1 99.1 11/05/25 08:00 Nasal Cannula* 6 44 Total Intake and Output 11/04/25 11/04/25 11/05/25 15:00 23:00 07:00 Intake Total 155 ml Output Total 500 ml Balance -345 ml medications Current Medications Medications Dose Ordered Sig/Zully Route Start Time Stop Time Status Last Admin Dose Admin Vancomycin HCl 0 ml @ 0 mls/hr PER PHARMACY IV 11/03/25 23:15 Folic Acid 1 mg DAILY PO 11/04/25 10:00 Levothyroxine Sodium 100 mcg QAM@0600 PO 11/04/25 06:00 Lactulose 30 ml BID PO 11/04/25 10:00 11/04/25 22:27 30 ML Sodium Chloride 10 ml Q8HR IV 11/04/25 06:00 11/05/25 14:06 10 ML Acetaminophen/ Hydrocodone Bitart 1 tab Q4HP PRN PO 11/03/25 23:15 Ondansetron HCl 4 mg Q4HP PRN IV 11/03/25 23:15 Docusate Sodium 100 mg BIDPRN PRN PO 11/03/25 23:15 Ibuprofen 400 mg Q6HP PRN PO 11/03/25 23:15 Nitroglycerin 0.4 mg Q5MINP PRN SL 11/04/25 00:00 Morphine Sulfate 2 mg Q30M PRN IV 11/04/25 00:00 Furosemide 20 mg DAILY IV 11/04/25 10:00 11/05/25 09:50 20 MG Purified Water 100 ml Q4HR GT 11/04/25 02:00 11/05/25 05:46 100 ML Diagnostic Test (Pha) 1 strip ACHS 11/04/25 07:00 11/05/25 12:39 1 STRIP Insulin Human Regular HS SC 11/04/25 22:00 Insulin Human Regular AC SC 11/04/25 07:00 11/04/25 07:03 2 UNITS Dextrose 50 ml UD PRN IV 11/04/25 02:30 Dopamine HCl/ Dextrose 250 ml @ 4.5 mls/hr Q24H IV 11/04/25 19:00 Dextrose 1,000 ml @ 125 mls/hr Q8H IV 11/05/25 13:30 11/05/25 13:30 125 MLS/HR objective Patient lying non communicating Left facial droop Lungs clear to auscultation bilaterally Cardiac exam regular rate and rhythm GI soft nontender Omer catheter Extremities no clubbing cyanosis or edema Neuro can not assess laboratory and microbiology Laboratory Tests 11/05/25 06:25 Test 11/05/25 06:25 Range/Units Serum Glucose 106 74-106 mg/dL Problems(with codes): (1) Altered level of consciousness (2) Metabolic encephalopathy (3) Sepsis (4) DNR (do not resuscitate) (5) UTI (urinary tract infection) Prognosis Plan Continue to monitor clinical status Check vitamin B12 and serum folate level and iron panel Protonix 40 mg IV daily I will arrange an EGD with PEG tube once medically stabilized Plan discussed with: Patient, Other (ER Nurse) Capillary Refill: < 3 seconds EDGARDO BELL MD Nov 05, 2025 15:58
--- NOTE | 2025-11-05 17:58 | DVHPN2 ---
Subjective Patient is clinically stable. Still remains confused and minimally verbal today. Evaluated by Nephrology. Patient's sodium level is still high. Family is at bedside. Changes from previous H/P or p: No Changes Eyes: No Pain, No Vision change, No Conjunctivae inflammation, No Eyelid inflammation, No Other, No Redness ENT: No Ear pain, No Ear discharge, No Nose pain, No Nose discharge, No Nose congestion, No Mouth pain, No Mouth swelling, No Throat pain, No Throat swelling, No Other Cardiovascular: No Chest Pain, No Palpitations, No Orthopnea, No Paroxysmal Noc. Dyspnea, No Edema, No Lt Headedness, No Other Respiratory: No Cough, No Dry; Shortness of breath; No SOB with excertion, No Wheezing, No Hemoptysis, No Pleuritic Pain, No Sputum, No Other Gastrointestinal: No Nausea, No Vomiting, No Abdominal Pain, No Diarrhea, No Constipation, No Melena, No Hematochezia, No Other Genitourinary: No Dysuria, No Frequency, No Incontinence, No Hematuria, No Retention, No Other Musculoskeletal: No other, No neck pain, No shoulder pain, No arm pain, No back pain, No hand pain, No leg pain, No foot pain Skin: No Rash, No Lesions, No Jaundice, No Bruising, No Other Objective Vitals Vital Signs Date Time Temp Pulse Resp B/P (MAP) Pulse Ox O2 Delivery O2 Flow Rate FiO2 11/05/25 16:00 99 11/05/25 14:30 14 90/36 (54) 91 11/05/25 10:30 99.1 99.1 11/05/25 08:00 Nasal Cannula* 6 44 Intake/Output Intake and Output 11/05/25 07:00 Intake Total 155 ml Output Total 500 ml Balance -345 ml Intake IV Total 155 ml Output Urine Total 500 ml Exam Appears drowsy/ Minimally verbal. Family is at bedside. HEENT pupils equal round react to light. Heart regular rate and rhythm S1-S2. Lungs fair air movement poor inspiratory effort without any audible wheezing or rales. Abdomen soft obese positive bowel sounds. Extremities no significant edema. Medications Current Medications Medications Dose Ordered Sig/Zully Route Start Time Stop Time Status Last Admin Dose Admin Vancomycin HCl 0 ml @ 0 mls/hr PER PHARMACY IV 11/03/25 23:15 Folic Acid 1 mg DAILY PO 11/04/25 10:00 Levothyroxine Sodium 100 mcg QAM@0600 PO 11/04/25 06:00 Lactulose 30 ml BID PO 11/04/25 10:00 11/04/25 22:27 30 ML Sodium Chloride 10 ml Q8HR IV 11/04/25 06:00 11/05/25 14:06 10 ML Acetaminophen/ Hydrocodone Bitart 1 tab Q4HP PRN PO 11/03/25 23:15 Ondansetron HCl 4 mg Q4HP PRN IV 11/03/25 23:15 Docusate Sodium 100 mg BIDPRN PRN PO 11/03/25 23:15 Ibuprofen 400 mg Q6HP PRN PO 11/03/25 23:15 Nitroglycerin 0.4 mg Q5MINP PRN SL 11/04/25 00:00 Morphine Sulfate 2 mg Q30M PRN IV 11/04/25 00:00 Furosemide 20 mg DAILY IV 11/04/25 10:00 11/05/25 09:50 20 MG Purified Water 100 ml Q4HR GT 11/04/25 02:00 11/05/25 05:46 100 ML Diagnostic Test (Pha) 1 strip ACHS 11/04/25 07:00 11/05/25 12:39 1 STRIP Insulin Human Regular HS SC 11/04/25 22:00 Insulin Human Regular AC SC 11/04/25 07:00 11/04/25 07:03 2 UNITS Dextrose 50 ml UD PRN IV 11/04/25 02:30 Dopamine HCl/ Dextrose 250 ml @ 4.5 mls/hr Q24H IV 11/04/25 19:00 Dextrose 1,000 ml @ 125 mls/hr Q8H IV 11/05/25 13:30 11/05/25 13:30 125 MLS/HR Laboratory Results Laboratory Tests 11/05/25 06:25 Chemistry Test 11/04/25 19:32 11/05/25 06:25 Magnesium Level 2.0 mg/dL (1.6-2.6) Phosphorus Level 4.9 mg/dL (2.4-5.1) Calcium Level 13.9 mg/dL (8.7-10.4) *H Urinalysis Test 11/03/25 22:48 11/05/25 13:57 Urine Hyaline Casts Many /lpf (0 - 2) Urine Mucus Few (None Seen) Urine Color Brown (Yellow) H Urine Clarity Cloudy (Clear) H Urine pH 5.5 (5.0-9.0) Urine Specific [place] 1.019 (1.001-1.035) Urine Protein 2+ (Negative) H Urine Ketones 1+ (Negative) H Urine Blood 3+ /uL (Negative) H Urine Nitrite Negative (Negative) Urine Bilirubin Negative (Negative) Urine Urobilinogen Normal mg/dL (Negative) Urine Leukocyte Esterase 2+ /uL (Negative) Urine RBC 148 /hpf (0 - 4) Urine WBC Clumps Present /hpf (None Seen) Urine Microscopic WBC 147 /HPF (0-5) H Urine Squamous Epithelial Cells Few /hpf (<5) Urine Bacteria Few /hpf (None Seen) H Urine Yeast (Budding) Occasional /hpf (None Urine Osmolality 357 mOsm/kg Urine Creatinine 110.39 mg/dL (30.0-125.0) Urine Protein/Creatinine Ratio 4.36 Urine Sodium 46 mmol/L (40-220) Urine Glucose Trace mg/dL (Normal) Urine Total Protein 481.3 mg/dL (1-14) H Microbiology Microbiology Date/Time Source Procedure Growth Status 11/03/25 22:50 Blood Blood Culture - Preliminary NO GROWTH AFTER 24 HOURS OF INCUBATION. Resulted 11/03/25 22:48 Voided Urine Urine Culture - Preliminary Resulted Labs and/or images reviewed: Labs reviewed by me Assessment/Plan Assessment/Plan Patient still has hypernatremia and hypercalcemia. Evaluated by Nephrology. She has continued to get D5W fluids. However given the significantly not improved I will have nurse place NG tube to start free water as well as lactulose given her ammonia level is high. Otherwise continue rest of supportive care and treatment as she is on. This is discussed with the daughters at bedside. Further clinical management per clinical course. Overall prognosis remains guarded. Plan discussed with: Daughter, Other My Orders Orders - MIRELLA WELDON MD Procedure Category Date Status Time Chest Xray 1 View XY 11/05/25 Logged 16:54 Problem List: (1) JUAN M (acute kidney injury) (2) Bilateral cellulitis of lower leg (3) Acute hepatic encephalopathy (4) DNR (do not resuscitate) (5) Metabolic encephalopathy (6) Thrombocytopenia (7) Hypernatremia (8) Anemia (9) Hypercalcemia (10) Multifocal pneumonia (11) Elevated liver enzymes (12) Generalized weakness Date of Service: Nov 05, 2025 Billing Provider: MIRELLA WELDON MD Common Visit Codes: [id number] INP/OBS CARE(MOD) MIRELLA WELDON MD Nov 05, 2025 17:58
[2025-11-05 18:46] LABS: Base Excess -10.4 mmol/L (-2.0-3.0)
[2025-11-05 19:02] VITALS: BP 90/36; PULSE 99; RESP 14; TEMP 99.1; O2SAT 91
--- NOTE | 2025-11-05 19:14 | DVHPN2 ---
Progress Note - Dictate Date Seen: Nov 05, 2025 Medical Necessity Reason Pt with a Central, PICC or Fol: No Subjective This is a follow up note for today nonverbal. Patient apparently went into respiratory distress during NG tube placement. Patient became hypoxemic therefore she needs to be bagged for oxygenation and patient is about to be intubated. However family is at bedside and given her code status being DNR they do not want her to be intubated. They want her to be comfortable. Currently she is on non-rebreather 15 L oxygenating 88%. Her ABG showed a pH of 6.9 with a pCO2 of 94 suggestion of CO2 retention. Discussed the option of BiPAP with them and they do not want BiPAP. They want her to be comfortable. No pressors. No cardiopulmonary resuscitation or intubation. They understand that the patient may pass away overnight if no aggressive treatment is done. They have verbalized understanding of her critical conditioning and possibility of without any aggressive interventions. I have talked with the patient's daughter/family members along with the nurse at bedside at length regarding her multiple comorbid medical conditions and poor prognosis given renal failure, hepatic failure, hypernatremia with a metabolic encephalopathy and need for aggressive treatment. They have clearly verbalized understanding of her critical condition and at present they want her to be comfortable without any aggressive treatment. Therefore we will honor their wishes and carry out comfort measures without BiPAP, pressors and others aggressive measures. If she is service overnight we will consider further options including palliative/hospice care. vital signs Vital Sign Date Time Temp Pulse Resp B/P (MAP) Pulse Ox O2 Delivery O2 Flow Rate FiO2 11/05/25 19:02 99.1 99 14 90/36 91 15.0 100 99.1 11/05/25 08:00 Nasal Cannula* Total Intake and Output 11/04/25 11/04/25 11/05/25 15:00 23:00 07:00 Intake Total 155 ml Output Total 500 ml Balance -345 ml medications Current Medications Medications Dose Ordered Sig/Zully Route Start Time Stop Time Status Last Admin Dose Admin Vancomycin HCl 0 ml @ 0 mls/hr PER PHARMACY IV 11/03/25 23:15 Folic Acid 1 mg DAILY PO 11/04/25 10:00 Levothyroxine Sodium 100 mcg QAM@0600 PO 11/04/25 06:00 Lactulose 30 ml BID PO 11/04/25 10:00 11/04/25 22:27 30 ML Sodium Chloride 10 ml Q8HR IV 11/04/25 06:00 11/05/25 14:06 10 ML Acetaminophen/ Hydrocodone Bitart 1 tab Q4HP PRN PO 11/03/25 23:15 Ondansetron HCl 4 mg Q4HP PRN IV 11/03/25 23:15 Docusate Sodium 100 mg BIDPRN PRN PO 11/03/25 23:15 Ibuprofen 400 mg Q6HP PRN PO 11/03/25 23:15 Nitroglycerin 0.4 mg Q5MINP PRN SL 11/04/25 00:00 Morphine Sulfate 2 mg Q30M PRN IV 11/04/25 00:00 Furosemide 20 mg DAILY IV 11/04/25 10:00 11/05/25 09:50 20 MG Purified Water 100 ml Q4HR GT 11/04/25 02:00 11/05/25 05:46 100 ML Diagnostic Test (Pha) 1 strip ACHS 11/04/25 07:00 11/05/25 18:00 1 STRIP Insulin Human Regular HS SC 11/04/25 22:00 Insulin Human Regular AC SC 11/04/25 07:00 11/04/25 07:03 2 UNITS Dextrose 50 ml UD PRN IV 11/04/25 02:30 Dopamine HCl/ Dextrose 250 ml @ 4.5 mls/hr Q24H IV 11/04/25 19:00 Dextrose 1,000 ml @ 125 mls/hr Q8H IV 11/05/25 13:30 11/05/25 13:30 125 MLS/HR Doxycycline Hyclate 100 ml @ 50 mls/hr Q12H IV 11/05/25 18:00 Albuterol 2.5 mg Q4H NEB 11/05/25 18:19 Ipratropium [place] 0.5 mg Q4H NEB 11/05/25 18:19 laboratory and microbiology Laboratory Tests 11/05/25 06:25 Test 11/05/25 06:25 Range/Units Serum Glucose 106 74-106 mg/dL Plan discussed with: Daughter Capillary Refill: < 3 seconds MIRELLA WELDON MD Nov 05, 2025 19:14
[2025-11-05] MEDS: DOXYCYCLINE 100MG/100ML 100 ML IV SCH (21:22)
[2025-11-05 21:45] VITALS: PULSE 99; RESP 16; O2SAT 90
[2025-11-05] MEDS: ALBUTEROL SULF 2.5 MG/0.5ML(0.5%) NEB SOLN NEB SCH (21:53)
[2025-11-05] MEDS: IPRATROPIUM BROM 0.5 MG/2.5ML INH SOL NEB SCH (21:53)
[2025-11-05 21:54] VITALS: PULSE 98; RESP 16; O2SAT 88
--- NOTE | 2025-11-05 22:56 | DVHINCON2 ---
Date of service: Nov 05, 2025 Referring Physician SONIA Amador Reason for Consultation Multifocal pneumonia History of Present Illness An 80-year-old woman (DNR) with past medical history of CHF, liver disease, hypertension, diabetes mellitus, thyroid disease and arthritis who presented to ED on 11/03/25 for evaluation of altered level of consciousness. As reported by EMS, patient is from [facility] since 10/30/25, after being discharged from [facility]. Patient was discharged from [facility] on 10/27/25 with diagnosis of pneumonia; few hours after, daughter brought her to [facility] ED. Patient was seen and evaluated in the ED. Laboratory data shows WBC 9.6, hemoglobin 10.0, hematocrit 30.4, platelets 43249. Sodium 157, potassium 3.8, BUN 46, creatinine 2.25, GFR 21, glucose 159, calcium 13.5, total bilirubin 1.6, AST 142, ALT 44, alkaline phos 168, BNP 108.02, ammonia 22, lactic acid 2.0, albumin 2.2. Patient was admitted for further care. Pulmonary consultation is requested for evaluation and management of multifocal pneumonia and acute hypoxic respiratory failure. Review of Systems: 14-point review of systems negative unless otherwise noted above. Past Medical History: CHF, liver disease, hypertension, diabetes mellitus, thyroid disease and arthritis Past Surgical History: None Medications: Reviewed. Allergies: Penicillin Family History: No family history of premature CAD. No family history of lung disorders. Social History: Nonsmoker. No alcohol or illicit drug use. Family History: Diabetes mellitus G8 FATHER FH: stomach cancer G8 MOTHER Allergies: Coded Allergies: Penicillins (Verified Allergy, Unknown, 12/14/24) Home Meds Active Scripts Azithromycin (Azithromycin) 500 Mg Tab, 1 TAB PO DAILY, #5 TAB Prov:QASIM MONROY MD 07/09/25 Cephalexin Monohydrate (Cephalexin) 500 Mg Cap, 1 CAP PO TID for 7 Days, #21 CAP Prov:QASIM MONROY MD 07/09/25 Lactulose (Lactulose) 10 Gm Brian, 10 GM PO TID for 90 Days, #90 PACK Prov:ANSON CHENG MD 05/24/25 Reported Medications Hydroxychloroquine Sulfate (PLAQUENIL) 200 Mg Tab, 1 TAB PO BID, #180 TAB 3 Refills 10/27/25 Potassium Chloride (Klor-Con M10) 10 Meq Tab, 1 TAB PO DAILY, #30 TAB 5 Refills 05/23/25 Linagliptin Base (TRADJENTA) 5 Mg Tab, 5 MG PO DAILY, TAB 05/23/25 Vericiguat (Verquvo) 2.5 Mg Tab, 2.5 MG PO DAILY, TAB 05/23/25 Furosemide (Furosemide) 40 Mg Tab, 40 MG PO DAILY for 30 Days 05/23/25 Pregabalin (Lyrica) 150 Mg Cap, 150 MG PO HS, CAP 05/23/25 Naproxen (Naproxen) 375 Mg Tab, 375 MG PO DAILYPRN, TAB 05/23/25 Pantoprazole Sodium (PANTOPRAZOLE SODIUM) 40 Mg Inj, 40 MG IV DAILY, INJ 05/23/25 B-Complex Vitamins (B Complex) Cap, 1 OR DAILY, CAP 04/07/25 Timolol Maleate (Timolol Maleate Ophthalmi) 0.5 % Sandra, 1 DROP EACHEYE BID, #5 ML 5 Refills 02/05/25 Folic Acid (Folic Acid) 1 Mg Tab, 1 MG PO DAILY, TAB 02/05/25 Clonidine Hcl ([id number] PATCH) 0.1 Mg/24 Hr Ph, 0.1 MG TD QWEEKLY, PATCH 02/05/25 Levothyroxine Sodium (Levothyroxine Sodium) 100 Mcg Tab, 100 MCG PO QAM for 30 Days, MCG 02/03/25 Linagliptin Base (TRADJENTA) 5 Mg Tab, 5 MG PO DAILY@BREAKFAST, TAB 02/03/25 Current Medications Current Medications Medications (Trade) Dose Ordered Sig/Zully Route PRN Reason Start Time Stop Time Status Last Admin Dextrose 1,000 ml @ 125 mls/hr Q8H IV 11/05/25 13:30 11/05/25 21:35 Doxycycline Hyclate 100 ml @ 50 mls/hr Q12H IV 11/05/25 18:00 11/05/25 21:22 Albuterol (Ventolin Medneb) 2.5 mg Q4H NEB 11/05/25 18:19 11/05/25 21:53 Ipratropium [place] (Atrovent Medneb) 0.5 mg Q4H NEB 11/05/25 18:19 11/05/25 21:53 Vital Signs Vital Signs Date Time Temp Pulse Resp B/P (MAP) Pulse Ox O2 Delivery O2 Flow Rate FiO2 11/05/25 21:54 98 16 88 11/05/25 21:45 Non-Rebreather 15.0 11/05/25 21:45 N/A 11/05/25 19:25 116/44 (68) 11/05/25 19:02 99.1 99.1 Physical Exam Gen.: Patient lying in bed in no apparent distress. On supplemental oxygen. Head: Normocephalic, atraumatic. Eyes: EOMI/PERRLA. Ears: Normal hearing. Normal anatomy. Neck/trachea: Trachea midline, supple. Nose: Normal external anatomy. Mouth: Moist mucous membranes. Chest: Decreased air entry bilaterally. No wheezing or rhonchi. Cardiovascular: Positive S1, positive S2. Regular rate and rhythm. Abdomen: Positive bowel sounds in all 4 quadrants. Soft, non-tender, non- distended. : Deferred. Rectal: Deferred. Skin: Warm, dry. Intact. Extremities: 2+ radial pulses bilaterally. No lower extremity edema. Neuro: Awake, alert, oriented x3. No gross motor or sensory deficits. Cranial nerves II through XII intact. Gait not assessed. Labs/Diagnostic Data Labs Test 11/05/25 18:24 11/05/25 13:57 11/05/25 12:37 11/05/25 06:25 Range/Units Blood Gas Specimen Type Arterial Blood Gas Sample Site Right radial Blood Gas Patient Temperature 37.0 Arterial Blood Date Drawn [id number] Arterial Blood pH 6.987 *L 7.350-7.450 Arterial Blood Partial Pressure CO2 94.0 *H 32.0-45.0 mmHg Arterial Blood Partial Pressure O2 60.2 L 83.0-108.0 mmHg Arterial Blood HCO3 22.0 21.0-28.0 mmol/L Arterial Blood Oxygen Saturation 86.0 L 94.0-98.0 % Arterial Blood Base Excess -10.4 L -2.0-3.0 mmol/L Arterial Blood Oxyhemoglobin 84.7 L 94.0-98.0 % Arterial Blood Carboxyhemoglobin 0.9 0.5-1.5 % Arterial Blood Methemoglobin 0.6 0.0-1.5 % Arterial Blood Deoxyhemoglobin 13.8 H 0.0-5.0 % [place] Test Yes Blood Gas Total Hemoglobin 10.60 L 12.0-16.0 g/dL Blood Gas Liter Flow 15.00 Blood Gas Modality Mask - nrb FiO2 % 100.0 Blood Gas Critical Value Read Back Yes Blood Gas Notified Whom Gladys quintero md Blood Gas Notified Time [id number] Blood Gas Notified By Thomas dalton rrt Urine Color Brown H Yellow Urine Clarity Cloudy H Clear Urine pH 5.5 5.0-9.0 Urine Specific [place] 1.019 1.001-1.035 Urine Protein 2+ H Negative Urine Ketones 1+ H Negative Urine Blood 3+ H Negative /uL Urine Nitrite Negative Negative Urine Bilirubin Negative Negative Urine Urobilinogen Normal Negative mg/dL Urine Leukocyte Esterase 2+ Negative /uL Urine RBC 148 0 - 4 /hpf Urine WBC Clumps Present None Seen /hpf Urine Microscopic WBC 147 H 0-5 /HPF Urine Squamous Epithelial Cells Few <5 /hpf Urine Bacteria Few H None Seen /hpf Urine Yeast (Budding) Occasional None Seen /hpf Urine Osmolality 357 mOsm/kg Urine Creatinine 110.39 30.0-125.0 mg/dL Urine Protein/Creatinine Ratio 4.36 Urine Sodium 46 40-220 mmol/L Urine Glucose Trace Normal mg/dL Urine Total Protein 481.3 H 1-14 mg/dL POC Glucose 139 H 70-106 mg/dl White Blood Count 16.0 #H 4.4-10.8 10^3/uL Red Blood Count 2.98 L 4.0-5.20 10^6/uL Hemoglobin 9.9 L 12.2-16.2 g/dL Hematocrit 30.4 L 36.0-46.0 % Mean Corpuscular Volume 102.1 H 80.0-100.0 fL Mean Corpuscular Hemoglobin 33.3 H 28.0-32.0 pg Mean Corpuscular Hemoglobin Concent 32.6 32.0-36.0 g/dL Red Cell Distribution Width 16.3 H 11.8-14.3 % Platelet Count 43 L 140-450 10^3/uL Mean Platelet Volume 9.1 6.9-10.8 fL Neutrophils (%) (Auto) 81.2 H 37.0-80.0 % Lymphocytes (%) (Auto) 8.9 L 10.0-50.0 % Monocytes (%) (Auto) 7.2 0.0-12.0 % Eosinophils (%) (Auto) 2.2 0.0-7.0 % Basophils (%) (Auto) 0.5 0.0-2.0 % Neutrophils # (Auto) 13.0 H 1.6-8.6 10 ^3/uL Lymphocytes # (Auto) 1.4 0.4-5.4 10 ^3/uL Monocytes # (Auto) 1.1 0-1.3 10 ^3/uL Eosinophils # (Auto) 0.3 0-0.8 10 ^3/uL Basophils # (Auto) 0.1 0-0.2 10 ^3/uL Nucleated Red Blood Cells 0.1 % Sodium Level 158 H 136-145 mmol/L Potassium Level 4.3 3.5-5.1 mmol/L Chloride Level 124 H 98-107 mmol/L Carbon Dioxide Level 24 20-31 mmol/L Anion Gap 10 5-15 Blood Urea Nitrogen 67 H 9-23 mg/dL Creatinine 2.89 H 0.550-1.02 mg/dL Glomerular Filtration Rate Calc 16 >90 mL/min BUN/Creatinine Ratio 23.2 H 10.0-20.0 Serum Glucose 106 74-106 mg/dL Calcium Level 13.9 *H 8.7-10.4 mg/dL Ammonia 37 H 11-32 umol/L Random Vancomycin Level 37.9 H 5-10 ug/mL Test 11/04/25 19:32 11/04/25 02:46 11/04/25 01:10 11/03/25 22:50 Range/Units Phosphorus Level 4.9 2.4-5.1 mg/dL Magnesium Level 2.0 1.6-2.6 mg/dL Parathyroid Hormone (Intact) 12.9 L 18.4-80.1 pg/mL Total Bilirubin 1.7 H 0.2-1.0 mg/dL Aspartate Amino Transferase (AST) 137 H 13-40 U/L Alanine Aminotransferase (ALT) 43 H 7-40 U/L Alkaline Phosphatase 168 H 46-116 U/L Total Protein 6.3 5.7-8.2 g/dL Albumin 2.2 L 3.2-4.8 g/dL Troponin I High Sensitivity 171 *H </=34 ng/L Thyroid Stimulating Hormone (TSH) 7.08 H 0.55-4.78 uIU/mL Test 11/03/25 22:48 11/03/25 21:50 Range/Units Urine Hyaline Casts Many 0 - 2 /lpf Urine Mucus Few None Seen Prothrombin Time 17.0 H 9.3-11.8 sec Prothrombin Time INR 1.69 H 0.9-1.15 Activated Partial Thromboplast Time 41.5 H 24.5-34.5 SEC Lactic Acid Level 2.0 0.4-2.0 mmol/L B-Type Natriuretic Peptide 108.02 0-100 pg/mL Plasma/Serum Blood Alcohol < 3.0 <10 mg/dL Microbiology Date/Time Source Procedure Growth Status 11/03/25 22:50 Blood Blood Culture - Preliminary NO GROWTH AFTER 24 HOURS OF INCUBATION. Resulted 11/03/25 22:48 Voided Urine Urine Culture - Preliminary Resulted Assessment Impression: Acute hypoxic respiratory failure Dependence on supplemental oxygen Acute hepatic encephalopathy Multifocal pneumonia Elevated LFTs Plan: Supplemental oxygen Titrate to keep O2 sats above 92%. On 15 LPM NRB. Taper O2 as tolerated. HOB elevation Aspiration precautions IV fluids with D5W at 125 ml/hr. Continue bronchodilators Continue antibiotics Follow up GI recs Follow up Nephrology recs Diurese with Lasix as tolerated Free water supplementation q.4 hours Monitor renal function. Monitor electrolytes. Supplement as necessary. Monitor ins and outs. Pt with poor prognosis. DVT prophylaxis. Prognosis: Poor given patient's multiple co-morbidities. Rest of plan per hospitalist and other consultants. Thank you, SONIA Amador, for allowing me to participate in this patient's care. Further recommendations will depend on the patient's clinical course. Please do not hesitate to contact me if you have any questions or concerns. This medical document was created using an electronic medical record system with [employer] dictation system. Although these documentations are being carefully reviewed, there may still be some phonetic and typographical changes. The errors are purely typographical, due to imperfection on the software program, and do not reflect any compromise in the patient's medical care. Plan discussed with: Other (RN/MD) Visit Coding Pulmonary Billing Provider: REYNA LINDSEY MD Date of Service if different f: Nov 05, 2025 Common Visit Codes: [id number] INP/OBS CARE (HIGH) REYNA LINDSEY MD Nov 05, 2025 22:56
[2025-11-06 00:35] VITALS: BP 96/50; PULSE 80; RESP 15; TEMP 97.6; O2SAT 92
[2025-11-06 00:54] VITALS: BP 96/48; PULSE 89; RESP 20; O2SAT 89
[2025-11-06 10:12] LABS: Hepatitis B Surface Antigen Negative (Negative)
[2025-11-06 11:12] LABS: Hepatitis C Antibody Negative (Negative)
--- NOTE | 2025-11-06 16:07 | DVHDS2 ---
Summary Date of Admission Nov 03, 2025 at 23:54 Date and Time of Expiration: Nov 06, 2025 00:41 Labs/Diagnostic Data: Laboratory Results Test 11/05/25 22:43 11/05/25 18:24 11/05/25 13:57 11/05/25 06:25 POC Glucose 220 mg/dl (70-106) Blood Gas Specimen Type Arterial Blood Gas Sample Site Right radial Blood Gas Patient Temperature 37.0 Arterial Blood Date Drawn [id number] Arterial Blood pH 6.987 (7.350-7.450) Arterial Blood Partial Pressure CO2 94.0 mmHg (32.0-45.0) Arterial Blood Partial Pressure O2 60.2 mmHg (83.0-108.0) Arterial Blood HCO3 22.0 mmol/L (21.0-28.0) Arterial Blood Oxygen Saturation 86.0 % (94.0-98.0) Arterial Blood Base Excess -10.4 mmol/L (-2.0-3.0) Arterial Blood Oxyhemoglobin 84.7 % (94.0-98.0) Arterial Blood Carboxyhemoglobin 0.9 % (0.5-1.5) Arterial Blood Methemoglobin 0.6 % (0.0-1.5) Arterial Blood Deoxyhemoglobin 13.8 % (0.0-5.0) [place] Test Yes Blood Gas Total Hemoglobin 10.60 g/dL (12.0-16.0) Blood Gas Liter Flow 15.00 Blood Gas Modality Mask - nrb FiO2 % 100.0 Blood Gas Critical Value Read Back Yes Blood Gas Notified Whom Gladys quintero md Blood Gas Notified Time [id number] Blood Gas Notified By Thomas dalton rrt Urine Color Brown (Yellow) Urine Clarity Cloudy (Clear) Urine pH 5.5 (5.0-9.0) Urine Specific [place] 1.019 (1.001-1.035) Urine Protein 2+ (Negative) Urine Ketones 1+ (Negative) Urine Blood 3+ /uL (Negative) Urine Nitrite Negative (Negative) Urine Bilirubin Negative (Negative) Urine Urobilinogen Normal mg/dL (Negative) Urine Leukocyte Esterase 2+ /uL (Negative) Urine RBC 148 /hpf (0 - 4) Urine WBC Clumps Present /hpf (None Seen) Urine Microscopic WBC 147 /HPF (0-5) Urine Squamous Epithelial Cells Few /hpf (<5) Urine Bacteria Few /hpf (None Seen) Urine Yeast (Budding) Occasional /hpf (None Urine Osmolality 357 mOsm/kg Urine Creatinine 110.39 mg/dL (30.0-125.0) Urine Protein/Creatinine Ratio 4.36 Urine Sodium 46 mmol/L (40-220) Urine Glucose Trace mg/dL (Normal) Urine Total Protein 481.3 mg/dL (1-14) White Blood Count 16.0 10^3/uL (4.4-10.8) Red Blood Count 2.98 10^6/uL (4.0-5.20) Hemoglobin 9.9 g/dL (12.2-16.2) Hematocrit 30.4 % (36.0-46.0) Mean Corpuscular Volume 102.1 fL (80.0-100.0) Mean Corpuscular Hemoglobin 33.3 pg (28.0-32.0) Mean Corpuscular Hemoglobin Concent 32.6 g/dL (32.0-36.0) Red Cell Distribution Width 16.3 % (11.8-14.3) Platelet Count 43 10^3/uL (140-450) Mean Platelet Volume 9.1 fL (6.9-10.8) Neutrophils (%) (Auto) 81.2 % (37.0-80.0) Lymphocytes (%) (Auto) 8.9 % (10.0-50.0) Monocytes (%) (Auto) 7.2 % (0.0-12.0) Eosinophils (%) (Auto) 2.2 % (0.0-7.0) Basophils (%) (Auto) 0.5 % (0.0-2.0) Neutrophils # (Auto) 13.0 10 ^3/uL (1.6-8.6) Lymphocytes # (Auto) 1.4 10 ^3/uL (0.4-5.4) Monocytes # (Auto) 1.1 10 ^3/uL (0-1.3) Eosinophils # (Auto) 0.3 10 ^3/uL (0-0.8) Basophils # (Auto) 0.1 10 ^3/uL (0-0.2) Nucleated Red Blood Cells 0.1 % Sodium Level 158 mmol/L (136-145) Potassium Level 4.3 mmol/L (3.5-5.1) Chloride Level 124 mmol/L (98-107) Carbon Dioxide Level 24 mmol/L (20-31) Anion Gap 10 (5-15) Blood Urea Nitrogen 67 mg/dL (9-23) Creatinine 2.89 mg/dL (0.550-1.02) Glomerular Filtration Rate Calc 16 mL/min (>90) BUN/Creatinine Ratio 23.2 (10.0-20.0) Serum Glucose 106 mg/dL (74-106) Calcium Level 13.9 mg/dL (8.7-10.4) Ammonia 37 umol/L (11-32) Random Vancomycin Level 37.9 ug/mL (5-10) Test 11/04/25 19:32 11/04/25 02:46 11/04/25 01:10 11/03/25 22:50 Phosphorus Level 4.9 mg/dL (2.4-5.1) Magnesium Level 2.0 mg/dL (1.6-2.6) Vitamin D 25-Hydroxy 29.6 ng/mL (30.0-100) Parathyroid Hormone (Intact) 12.9 pg/mL (18.4-80.1) Hepatitis B Surface Antigen Negative (Negative) Hepatitis C Antibody Negative (Negative) Total Bilirubin 1.7 mg/dL (0.2-1.0) Aspartate Amino Transferase (AST) 137 U/L (13-40) Alanine Aminotransferase (ALT) 43 U/L (7-40) Alkaline Phosphatase 168 U/L (46-116) Total Protein 6.3 g/dL (5.7-8.2) Albumin 2.2 g/dL (3.2-4.8) Troponin I High Sensitivity 171 ng/L (</=34) Thyroid Stimulating Hormone (TSH) 7.08 uIU/mL (0.55-4.78) Test 11/03/25 22:48 11/03/25 21:50 Urine Hyaline Casts Many /lpf (0 - 2) Urine Mucus Few (None Seen) Prothrombin Time 17.0 sec (9.3-11.8) Prothrombin Time INR 1.69 (0.9-1.15) Activated Partial Thromboplast Time 41.5 SEC (24.5-34.5) Lactic Acid Level 2.0 mmol/L (0.4-2.0) B-Type Natriuretic Peptide 108.02 pg/mL (0-100) Plasma/Serum Blood Alcohol < 3.0 mg/dL (<10) Other Laboratory Tests 11/05/25 06:25 Brief Hx & Hospital Course: The patient is a 80-year-old female DNR with past medical history of arthritis, CHF, liver disease, hypertension, diabetes mellitus, and thyroid disease who presented to [facility] ED for evaluation of altered level of consciousness. As reported by EMS, patient is from [facility] since 10/30/25, after being discharged from [facility]. Patient was discharged from [facility] on 10/27/25 with diagnosis of pneumonia, few hours after daughter brought her to [facility] ED. Patient was seen and evaluated in the ED, laboratory data shows WBC 9.6, hemoglobin 10.0, hematocrit 30.4, platelets 70210, sodium 157, potassium 3.8, BUN 46, creatinine 2.25, GFR 21, glucose 159, calcium 13.5, total bilirubin 1.6, AST 142, ALT 44, alkaline phos 168, BNP 108.02, ammonia 22, lactic acid 2.0, albumin 2.2. Please see medication orders section in the computer. On my assessment, patient denies altered, no diaphoresis, currently on oxygen, no diarrhea, nausea, vomiting, fever no chills. Patient was admitted for further evaluation and medical management. I will cross covering for [facility] hospitalist group and she was seen and evaluated by me yesterday. She is admitted and underwent further evaluations and consultations. Patient did not clinically improve. Therefore discussions done with the daughter/family members and they have opted for comfort measures and she was made DNR yesterday when her clinical condition worsened. Subsequently overnight patient apparently went into asystole and in the early childhood specialist hours. Final Diagnosis/Problems List End-stage liver disease Metabolic encephalopathy Hypernatremia Hypercalcemia Thrombocytopenia Acute kidney injury Acute liver failure Possible hepatorenal syndrome Discharge Disposition: at Hospital MIRELLA QUINTERO MD Nov 06, 2025 16:07
== END 2025-11-06 00:41 | DRG 720 ==
LOC: ER 21:35 → EDBD 21:35 → OVERFLOW 23:54 → TELE-EAST 11-05 23:53
PROVIDERS: ADMIT Nurse Practitioner Family; ATTEND Nurse Practitioner Family
DX: A41.50 Gram-negative sepsis, unspecified (principal); K72.00 Acute and subacute hepatic failure without coma; N17.0 Acute kidney failure with tubular necrosis; J96.01 Acute respiratory failure with hypoxia; I21.4 Non-ST elevation (NSTEMI) myocardial infarction; K76.7 Hepatorenal syndrome; G93.41 Metabolic encephalopathy; J15.69 Pneumonia due to other Gram-negative bacteria; K72.10 Chronic hepatic failure without coma; R65.20 Severe sepsis without septic shock; J15.9 Unspecified bacterial pneumonia; D63.1 Anemia in chronic kidney disease; E11.22 Type 2 diabetes mellitus with diabetic chronic kidney disease; I13.0 Hypertensive heart and chronic kidney disease with heart failure and stage 1 through stage 4 chronic kidney disease, or unspecified chronic kidney disease; N18.9 Chronic kidney disease, unspecified; E03.9 Hypothyroidism, unspecified; M06.9 Rheumatoid arthritis, unspecified; Z66 Do not resuscitate; E87.20 Acidosis, unspecified; E87.0 Hyperosmolality and hypernatremia; E86.0 Dehydration; K74.60 Unspecified cirrhosis of liver; K76.82 Hepatic encephalopathy; E83.52 Hypercalcemia; I50.32 Chronic diastolic (congestive) heart failure; B37.49 Other urogenital candidiasis; Z99.81 Dependence on supplemental oxygen; Z88.0 Allergy status to penicillin; Z79.2 Long term (current) use of antibiotics; Z79.899 Other long term (current) drug therapy; Z83.3 Family history of diabetes mellitus; Z80.0 Family history of malignant neoplasm of digestive organs
CPT/HCPCS: 36415; 36600; 70450; 71045; 80048; 80053; 80202; 80320; 81001; 82140; 82306; 82570; 82805; 82962; 83605; 83735; 83880; 83935; 83970; 84100; 84156; 84300; 84443; 84484; 85025; 85610; 85730; 86803; 87040; 87086; 87088; 87340; 92950; 93005; 94640; 96365; 99291; G0378; J1815; J3489; P9047